=== PATIENT | female | born 1945 | race American Indian/Alaskan Native ===

== ENCOUNTER → 2016-05-22 | Day surgery (SDC) | payer OTHER, MEDICARE ==
[2016-05-15 09:09] VITALS: BMI 32.0
[~2016-05-22] VITALS: Ht 152.4 cm; Wt 74.1 kg
[~2016-05-22] MED LIST: ASPI81TA28 PO; MULT-506 PO
[2016-05-22 08:56] VITALS: Ht 152.4 cm; Wt 74.1 kg
[2016-05-22 11:45] VITALS: BP 145/63; PULSE 64; O2SAT 98
--- NOTE | 2016-05-22 14:09 | Procedure Note ---
Breath Hydrogen Test Interpretation Hydogren Breath Test Ordering Provider: Dr. Quinn Interpreting Provider: Dr. Skyler Donovan Time Hydrogen Level CO2 Level 0 2 3.6 20 1 4.5 40 3 4.3 60 3 4.2 120 10 4.4 140 12 4.2 160 19 4.0 180 21 4.5 200 29 4.2 220 14 4.3 Breath hydrogen increase maximum: 27 CO2 increase maximum: 0.9 Interpretation: Breath hydrogen increase of 27 consistent with a positive study. Recomendations: Referring provider to determine course of care for positive Hydrogen Breath Test.
== END | disposition home or self-care (01) ==
LOC: C.GI 08:29
PROVIDERS: ATTEND Internal Medicine Gastroenterology
DX: K31.9 Disease of stomach and duodenum, unspecified (principal); R10.13 Epigastric pain

== ENCOUNTER → 2017-11-12 | Outpatient (CLI) | payer OTHER, MEDICARE ==
[~2017-11-12] MED LIST changes: +PRED20TA PO
--- NOTE | 2017-11-13 05:31 | PAP/PSG TECHNICIAN REPORT ---
[facility] Fiber Optic Splicer Polysomnogram Report Study name: None Report date: 11/13/2017 Study date: 11/12/2017 Referring Physician: Greg Taylor M.D. Name: JOSE RON Interpreting Physician: Greg Taylor M.D. Date of : 1945 Fiber Optic Splicer: VIANEY Berrios. Sex: Female Age: 71 StudyType: PSG Weight: 168.9 lbs Height: 71 years, Height 5' 1" Neck Circum:16inches BMI: 31.91 Medications: ASA 81mg, Ibuprofen 200mg, Lorazepam 0.5mg, Multiple Vitamins, Ondansetron HCL 4mg Patient History Study started on room air with no ETCO2 monitoring in room #8. 71 yr old female here tonight for a possible split psg. She complains of loud snoring, witnessed apneic episodes, fragmented sleep and severe fatigue. Her ESS=13/24. Neck circ=16 inches. Note: She had to go to the ED at [facility] yesterday for a wasp sting. She is allergic. She had to be put on Prednisone and an antihistamine. Her rt hand is red and swollen. Parameters Monitored NPSG: E1-M2, E2-M1, Fp1-M2, Fp2-M1, F3-M2, F4-M2, F4-M1, C3-M2, C4-M2, C4-M1, O1-M2, O2-M2, O2-M1, T3-M2, T4-M1, P3-M2, P4-M1, CHIN1, CHIN2, HR, EKG, Legs, PFLOW, SNOR, FLOW, CFLOW, Tidal Volume, THOR, ABDO, SpO2, PLTH, CPRESS, ETCO2 Wave, ETCO2, pH Sleep Architecture Sleep Stages Time at Lights Off 10:11:23 PM STAGES Time (min.) TST (%) Time at Lights On 5:17:53 AM Wake 295.0 -- Total Recording Time (TRT) 426.50 min. N1 12.5 10 Total Sleep Period (TSP) 352.0 min. N2 74.0 56 Total Sleep Time (TST) 131.5min. N3 33.0 25 Awake Time 295.0 min. REM 12.0 9 Wake after Sleep Onset 268.0 min. Sleep Efficiency (SE) 31 % Sleep Onset Latency (LIBORIO) 27.0 min. Number of Stage 1 Shifts None Awakenings 18 Stage Changes 55 Number of REM periods 1 REM 12.0 9 REM Latency 77.5 min. NREM 119.5 91 Body Position Analysis Supine Right Left Side Prone Vertical Total Sleep Time (min.) 99.6 128.5 0.0 128.50 0.0 0.0 Total Sleep Time (%) 2% 98% 0% 98 0% N/A% Total Sleep Time REM (min.) 0.0 12.0 0.0 None 0.0 0.0 Total Sleep Time NREM (min.) 3.0 116.5 0.0 None 0.0 0.0 Intermittent Wake (min.) 96.6 121.3 77.1 None 0.0 0.0 Total Sleep Period (%) 21% None None None None None Arousals Myoclonus (PLM) * Events Count Index Events Count Index Spontaneous 13 6 Events Awake (PLMW) 260 52.9 Respiratory 3 2.3 Events Asleep w/ Arousal (PLMA) 15 6.8 PLM 15 7 Events Asleep w/o Arousal (PLMS) 103 47.0 Snoring 7 3 Total Asleep 118 53.8 Total 38 17 Total 378 53 Respiratory Analysis * CA OA MA CH H RERA Total Count 0 4 0 0 13 1 17 Index 0.0 1.8 0.0 0 5.9 0 8.2 Mean Duration 0.0 17.5 0.0 0.00 28.1 29.9 25.8 Longest Duration 0.0 22.5 0.0 0.00 0.0 29.9 53.5 Respiratory Event Summary Total Supine ~Supine Right Left Prone REM NREM Apneas Count 4 0 4 4 N/A N/A 0 4 Index 1.8 0 2 1.9 N/A N/A 0 2 Hypopneas (4% Desat) Count 13 0 13 13 N/A N/A 8 5 Index 5.9 0.0 6 6.1 N/A N/A 40.0 2.5 Apneas & All Hypopneas Count 17 0 17 17 N/A N/A 8 9 Index 7.8 0 8 8 N/A N/A 40.0 4.5 Respiratory Events (Floor Renovator+All Hyp+RERA) Count 17 0 18 18 N/A N/A 8 9 Index 8.2 0 8 8.4 N/A N/A 40.0 5.0 Respiratory Related Arousal Count 3 0 5 5 N/A N/A 0 5 Index 2.3 0 2 2 N/A N/A 0 3 Snoring Analysis Supine Right Left Prone REM NREM Total Snore duration 3.4 min Snores count 6 142 N/A N/A 18 130 148 Snore mean duration 1.4 Sec Snores index 120 66 N/A N/A 90.0 65.3 67.5 TST with snoring (%) 2.6% Desaturation Event Summary: Minimum %SpO2 Event Count Mean/Min/Max Duration(sec.) Desaturation Index % Time In Bed > 90 29 31.0 / 8.0 / 58.3 8.2 55.0 86 - 90 11 24.3 / 4.8 / 54.3 3.8 44.9 81 - 85 0 N/A 0.0 0.1 76 - 80 0 N/A 0.0 0.0 71 - 75 0 N/A 0.0 0.0 66 - 70 0 N/A 0.0 0.0 61 - 65 0 N/A 0.0 0.0 56 - 60 0 N/A 0.0 0.0 51 - 55 0 N/A 0.0 0.0 < 50 0 N/A 0.0 0.0 Total REM NREM Awake <50% 0.0 min. 0.0 min. 0.0 min. 0.0 min. 51 - 60% 0.0 min. 0.0 min. 0.0 min. 0.0 min. 61 - 70% 0.0 min. 0.0 min. 0.0 min. 0.0 min. 71 - 80% 0.2 min. 0.0 min. 0.0 min. 0.2 min. 81 - 90% 173.8 min. 4.3 min. 69.3 min. 100.3 min. 91 - 100% 212.5 min. 7.7 min. 49.7 min. 155.1 min. Average 91 91 90 91 Minimum SpO2 80 87 87 80 Desaturation Event Index 4.4 35.0 2.5 3.9 # Desat. Events below 89% 21 6 3 12 Time(%) with Saturation below 89% 6.7 0.2 3.2 3.3 Time(min.) with Saturation below 89% 25.8 0.7 12.5 12.6 Time (mins) REM (mins) NREM (mins) % of TST SpO2 Below 90% 12 7 N5 26.9 SpO2 Below 88% 4 0 0 0 Heart Rate Analysis Min (bpm) Max (bpm) Average (bpm) Awake 46 300 58 NREM 45 127 56 REM 53 68 58 Overall 45 127 56 Supplemental O2 Values Minimum O2 level: None Value Start Time End Time Fiber Optic Splicer Comments Mrs. Ron slept in the right, left and supine positions. Cardiac arrhythmia and PLM's noted, please see print outs. No bruxism noted. Snoring was noted and scored as a 2 on a scale of 1 through 5. (0=no snoring, 5=snoring loud enough to be heard through a closed door or down the dominguez way). She awoke to use the restroom 2 times during the night. She stated that she slept a little worse than usual and that her right hand was bothering her where she got stung by a wasp. The final report will be interpreted and signed by a sleep physician. The completed physician report will then be placed in the patient medical record. Therapy (cm H2O) 0 TIB (min.) 426.5 TST (min.) 131.5 Sleep Onset (min.) 27.0 REM Onset From Sleep (min.) 77.5 Sleep Efficiency % 31 Wakefulness (%) 69 Wakefulness (min.) 295.0 NREM 1 (%) 10 NREM 1 (min.) 12.5 NREM 2 (%) 56 NREM 2 (min.) 74.0 NREM 3 (%) 25 NREM 3 (min.) 33.0 REM (%) 9 REM (min.) 12.0 # Arousals 38 Arousal Index 17 # Snore 148 Snore Index 67.5 AHI 7.8 AHI Supine 0 AHI Non-Supine 8 NREM AHI 4.5 REM AHI 40.0 RDI 8.2 # Obstructive Apnea 4 # Central Apnea 0 # Mixed Apnea 0 # Hypopneas 13 RERAs 1 Total Respiratory Events 22 Time Below SpO2 89% (min.) 13.1 Mean NREM SpO2 (%) 90 Mean REM SpO2 (%) 91 Mean Sleep SpO2 (%) 90 Min NREM SpO2 (%) 87 Min REM SpO2 (%) 87 Position Supine (min.) 99.6 Position Non-supine (min.) 128.5 LM Index Sleep 53.8 LM Index NREM 58.7 LM Index REM 5.0 Mean Heart Rate (bpm) 56 Min Heart Rate (bpm) 45
--- NOTE | 2017-11-16 13:34 | POLYSOMNOGRAPH REPORT ---
CLINICAL DATA: A 71-year-old female with BMI of 39.9, referred by Dr. Cloud and myself for a sleep study. She has loud snoring, witnessed apneic episodes, fragmented sleep, and severe fatigue. Her [place] sleepiness score is 13/24. She was on prednisone for an allergic reaction due to a wasp sting treated at the Emergency Room the night before the sleep study. SLEEP ARCHITECTURE: Total sleep period was 352 minutes. Total sleep time was only 131.5 minutes divided between 119.5 minutes of non-REM sleep, and 12 minutes of REM sleep. Sleep onset latency was 27 minutes. REM latency was 77.5 minutes. Sleep efficiency was severely reduced at 31%. Wake after sleep onset was 268 minutes. Sleep consisted of stage N1 10%, stage N2 56%, stage N3 25%, and REM 9%. AROUSAL DATA: 38 arousals were recorded for an index of 17 per hour. PLM DATA: 118 limb movements during sleep were noted for an index of 53.8 per hour with arousal index of 6.8 per hour. RESPIRATORY DATA: Mild sleep apnea was documented. The AHI was 7.8. The RDI was 8.2. There were 4 obstructive apneic episodes. The longest apneic episode was 22.5 seconds. There were 13 hypopneic episodes with mean duration of 28.1 seconds. There was 1 RERA, 29.9 seconds in duration. OXIMETRY DATA: Transient hypoxemia was seen. Oxygen susan was 87% during REM. Mean saturation was 91%. Time below 88% was 4 minutes. EKG: Heart rates ranged from 45-127 beats per minute. Occasional PVCs were noted. ELECTRONIC SEMICONDUCTOR PROCESSOR'S COMMENTS: The patient slept in the right, left, and supine position. Snoring was mild, rated 2 on a scale of 1-5. The patient stated that she slept worse than usual because her right hand was painful where she got stung by a wasp. IMPRESSION: Mild sleep apnea/hypopnea in this very limited sleep study where only 131.5 minutes of sleep was achieved. This may not accurately reflect the degree of her sleep apnea. RECOMMENDATIONS: The patient may benefit from a repeat sleep study after she has healed from her recent insect sting. If she does not feel that she can sleep at the Sleep Lab, then a home sleep apnea test will be considered. STU
== END | disposition home or self-care (01) ==
LOC: C.NEUR 21:00
PROVIDERS: ATTEND Internal Medicine Pulmonary Disease
DX: G47.30 Sleep apnea, unspecified (principal)

== ENCOUNTER 2017-11-29 14:43 | Emergency (ER) | payer OTHER, MEDICARE ==
[~2017-11-29] VITALS: Ht 152.4 cm; Wt 80.0 kg
[~2017-11-29 14:43] MED LIST changes: -PRED20TA PO
[2017-11-29 14:46] VITALS: TEMP 36.6
[2017-11-29 15:03] VITALS: O2SAT 95; Ht 152.4 cm; Wt 80.0 kg
[2017-11-29 15:22] LABS: BASO % 0.6 %; BASO ABS # 0.05 K/uL (0-0.2); EOS % 1.6 %; EOS ABS # 0.14 K/uL (0-0.5); HEMATOCRIT 40.9 % (37-47); HEMOGLOBIN 13.9 g/dL (12.0-16.0); IG# 0.02 K/uL (0.00-0.02); LYMPH % 36.8 %; LYMPH ABS # 3.25 K/uL (1.2-3.4); MEAN CELL VOLUME 89.3 fL (80-100); MEAN CORPUSCULAR HEMOGLOBIN 30.3 pg (25-34); MEAN PLATELET VOLUME 10.2 fL (7.4-10.4); MONO % 4.9 %; MONO ABS # 0.43 K/uL (0.11-0.59); NEUT % 55.9 %; NEUT ABS # 4.95 K/uL (1.4-6.5); PLATELET COUNT 283 K/uL (130-400); RED CELL DISTRIBUTION WIDTH CV 14.5 % (11.5-14.5); RED CELL DISTRIBUTION WIDTH SD 47.1 fL (36.4-46.3); WHITE BLOOD COUNT 8.84 K/uL (4.8-10.8)
--- NOTE | 2017-11-29 15:27 | DIAGNOSTIC IMAGING REPORT ---
CHEST ONE VIEW PORTABLE CLINICAL HISTORY: EVALUATE WEAKNESS mental status change COMPARISON STUDY: 03/06/2016 FINDINGS: The bones soft tissues and hemidiaphragms are normal. The cardiomediastinal silhouette is normal. The lungs are clear. The pulmonary vasculature is normal. IMPRESSION: Negative chest. The above report was generated using voice recognition software. It may contain grammatical, syntax or spelling errors. Electronically signed by: Dilan Santamaria M.D. 11/29/2017 3:26 PM Dictated Date/Time: 11/29/2017 3:25 PM
[2017-11-29 15:32] LABS: PTT PATIENT 29.5 SECONDS (21.0-31.0)
[2017-11-29 16:06] LABS: ALBUMIN 3.8 gm/dl (3.4-5.0); ALKALINE PHOSPHATASE 77 U/L (45-117); ALT/SGPT 26 U/L (12-78); AST/SGOT 26 U/L (15-37); BLOOD UREA NITROGEN 12 mg/dl (7-18); CALCIUM 8.9 mg/dl (8.5-10.1); CARBON DIOXIDE 25 mmol/L (21-32); GLUCOSE 86 mg/dl (70-99); POTASSIUM 3.7 mmol/L (3.5-5.1); SODIUM 137 mmol/L (136-145); TOTAL PROTEIN 8.7 gm/dl (6.4-8.2)
--- NOTE | 2017-11-29 16:34 | DIAGNOSTIC IMAGING REPORT ---
HEAD WITHOUT CONTRAST (CT) CT DOSE: 537.48 mGy.cm HISTORY: Mental status change EVALUATE WEAKNESS TECHNIQUE: Multiaxial CT images of the head were performed without the use of intravenous contrast. A dose lowering technique was utilized adhering to the principles of ALARA. Comparison: 03/06/2016 Findings: The paranasal sinuses and mastoid air cells are clear. The calvarium and skull base are intact. The ventricles and sulci are within normal limits. There is no mass, hematoma, midline shift, or acute infarct. Impression: No acute intracranial abnormality. The above report was generated using voice recognition software. It may contain grammatical, syntax or spelling errors. Electronically signed by: Dilan Santamaria M.D. 11/29/2017 4:33 PM Dictated Date/Time: 11/29/2017 4:32 PM
[2017-11-29 17:31] VITALS: BP 148/99; PULSE 65; O2SAT 97
--- NOTE | 2017-11-29 20:39 | EMERGENCY ROOM VISIT NOTE ---
History Report prepared by [place]: Paige Lott Under the Supervision of: Dr. Raul Lawton D.O. First contact with patient: 14:49 Chief Complaint: HYPERTENSION Stated Complaint: ELEVATED BLOOD PRESSURE 181/100, VISUAL CLOUDY History of Present Illness The patient is a 72 year old female who presents to the Emergency Room with complaints of hypertension beginning at 0500 this morning. She notes that since she woke up this morning at 0500, she felt heart palpitations which she describes as fluttering but denies any associated pain. The patient states that her heart has been beating fast all day. She has associated cloudy vision and has also developed a headache and some nausea. Pt denies fevers, neck pain, chest pain, shortness of breath, vomiting, diarrhea, pain with urination, melena , weakness and numbness in her extremities. She is not taking any blood thinners. Source of History: patient Onset: 0500 this morning Position: chest Quality: other (fluttering and heart racing) Timing: constant Associated Symptoms: + headache, + nausea, No fevers, No neck pain, No chest pain, No vomiting, No melena, No diarrhea, No urinary symptoms (pain with urination), No weakness, No numbness Note: Positive cloud vision. Review of Systems See HPI for pertinent positives & negatives. A total of 10 systems reviewed and were otherwise negative. Past Medical & Surgical Medical Problems: (1) Asthma (2) Benign hypertension (3) Cardiac catheterization (4) COPD (5) Hyperlipidemia (6) Myocardial infarction (7) Slow rate of speech (8) Takotsubo syndrome (9) Vertigo Family History FH: heart disease Social History Smoking Status: Former Smoker Alcohol Use: none Drug Use: none Marital Status: Housing Status: lives with significant other Occupation Status: retired Current/Historical Medications Scheduled Aspirin (Aspirin Ec), 81 MG PO DAILY Multivitamin (Multivitamin), 1 TAB PO DAILY Allergies Coded Allergies: Morphine (Verified Allergy, Unknown, RASH, 11/29/17) Penicillins (Verified Allergy, Unknown, SWELLING, 11/29/17) Nitroglycerin (Verified Adverse Reaction, Unknown, DIZZY, 11/29/17) Statins (Verified Adverse Reaction, Unknown, GI SYMPTOMS, 11/29/17) Physical Exam Vital Signs Date Time Temp Pulse Resp B/P (MAP) Pulse Ox O2 Delivery O2 Flow Rate FiO2 11/29/17 17:31 65 15 148/99 97 Room Air 11/29/17 16:33 158/72 11/29/17 16:13 72 16 11/29/17 16:01 147/94 11/29/17 15:50 165/98 11/29/17 15:49 164/102 11/29/17 15:48 167/91 11/29/17 15:43 69 18 96 11/29/17 15:38 74 16 167/91 94 Room Air 82 164/102 165/98 11/29/17 15:13 76 11/29/17 15:13 69 17 96 11/29/17 15:03 95 Room Air 11/29/17 15:03 95 Room Air 11/29/17 14:46 36.6 91 17 176/96 97 Room Air Physical Exam GENERAL: Sitting up in bed, alert, well appearing, well nourished, no distress, non-toxic EYE EXAM: normal conjunctiva. PERRL and EOM's grossly intact. OROPHARYNX: no exudate, no erythema, lips, buccal mucosa, and tongue normal and mucous membranes are moist NECK: supple, no nuchal rigidity, no adenopathy, non-tender LUNGS: Clear to auscultation. Normal chest wall mechanics HEART: no murmurs, S1 normal and S2 normal ABDOMEN: abdomen soft, non-tender, normo-active bowel sounds, no masses, no rebound or guarding. BACK: Back is symmetrical on inspection and there is no deformity, no midline tenderness, no CVA tenderness. SKIN: no rashes and no bruising UPPER EXTREMITIES: upper extremities are grossly normal. LOWER EXTREMITIES: No pitting edema. NEURO EXAM: Normal sensorium, cranial nerves II-XII intact, normal speech, no weakness of arms, no weakness of legs. No drift. Finger to nose intact. Gross sensation intact. Medical Decision & Procedures ER Provider Diagnostic Interpretation: Radiology results as stated below per my review and the radiologist's interpretation: CHEST ONE VIEW PORTABLE CLINICAL HISTORY: EVALUATE WEAKNESS mental status change COMPARISON STUDY: 03/06/2016 FINDINGS: The bones soft tissues and hemidiaphragms are normal. The cardiomediastinal silhouette is normal. The lungs are clear. The pulmonary vasculature is normal. IMPRESSION: Negative chest. The above report was generated using voice recognition software. It may contain grammatical, syntax or spelling errors. Electronically signed by: Dilan Santamaria M.D. 11/29/2017 3:26 PM HEAD WITHOUT CONTRAST (CT) CT DOSE: 537.48 mGy.cm HISTORY: Mental status change EVALUATE WEAKNESS TECHNIQUE: Multiaxial CT images of the head were performed without the use of intravenous contrast. A dose lowering technique was utilized adhering to the principles of ALARA. Comparison: 03/06/2016 Findings: The paranasal sinuses and mastoid air cells are clear. The calvarium and skull base are intact. The ventricles and sulci are within normal limits. There is no mass, hematoma, midline shift, or acute infarct. Impression: No acute intracranial abnormality. The above report was generated using voice recognition software. It may contain grammatical, syntax or spelling errors. Electronically signed by: Dilan Santamaria M.D. 11/29/2017 4:33 PM Laboratory Results 11/29/17 15:15 Red Blood Count 4.58, Mean Corpuscular Volume 89.3, Mean Corpuscular Hemoglobin 30.3, Mean Corpuscular Hemoglobin Concent 34.0, Mean Platelet Volume 10.2, Neutrophils (%) (Auto) 55.9, Lymphocytes (%) (Auto) 36.8, Monocytes (%) (Auto) 4.9, Eosinophils (%) (Auto) 1.6, Basophils (%) (Auto) 0.6, Neutrophils # (Auto) 4.95, Lymphocytes # (Auto) 3.25, Monocytes # (Auto) 0.43, Eosinophils # (Auto) 0.14, Basophils # (Auto) 0.05 11/29/17 15:15 Test 11/29/17 15:14 11/29/17 15:15 Bedside Glucose 82 mg/dl (70-90) White Blood Count 8.84 K/uL (4.8-10.8) Red Blood Count 4.58 M/uL (4.2-5.4) Hemoglobin 13.9 g/dL (12.0-16.0) Hematocrit 40.9 % (37-47) Mean Corpuscular Volume 89.3 fL (80-100) Mean Corpuscular Hemoglobin 30.3 pg (25-34) Mean Corpuscular Hemoglobin Concent 34.0 g/dl (32-36) Platelet Count 283 K/uL (130-400) Mean Platelet Volume 10.2 fL (7.4-10.4) Neutrophils (%) (Auto) 55.9 % Lymphocytes (%) (Auto) 36.8 % Monocytes (%) (Auto) 4.9 % Eosinophils (%) (Auto) 1.6 % Basophils (%) (Auto) 0.6 % Neutrophils # (Auto) 4.95 K/uL (1.4-6.5) Lymphocytes # (Auto) 3.25 K/uL (1.2-3.4) Monocytes # (Auto) 0.43 K/uL (0.11-0.59) Eosinophils # (Auto) 0.14 K/uL (0-0.5) Basophils # (Auto) 0.05 K/uL (0-0.2) RDW Standard Deviation 47.1 fL (36.4-46.3) RDW Coefficient of Variation 14.5 % (11.5-14.5) Immature Granulocyte % (Auto) 0.2 % Immature Granulocyte # (Auto) 0.02 K/uL (0.00-0.02) Prothrombin Time 10.0 SECONDS (9.0-12.0) Prothromb Time International Ratio 1.0 (0.9-1.1) Activated Partial Thromboplast Time 29.5 SECONDS (21.0-31.0) Partial Thromboplastin Ratio 1.1 Anion Gap 8.0 mmol/L (3-11) Est Creatinine Clear Calc Drug Dose 66.0 ml/min Estimated GFR () 98.9 Estimated GFR (Non- 85.4 BUN/Creatinine Ratio 16.7 (10-20) Calcium Level 8.9 mg/dl (8.5-10.1) Total Bilirubin 0.5 mg/dl (0.2-1) Direct Bilirubin 0.1 mg/dl (0-0.2) Aspartate Amino Transf (AST/SGOT) 26 U/L (15-37) Alanine Aminotransferase (ALT/SGPT) 26 U/L (12-78) Alkaline Phosphatase 77 U/L (45-117) Troponin I < 0.015 ng/ml (0-0.045) Total Protein 8.7 gm/dl (6.4-8.2) Albumin 3.8 gm/dl (3.4-5.0) Thyroid Stimulating Hormone (TSH) 3.690 uIu/ml (0.300-4.500) Laboratory results per my review. ECG Per My Interpretation Indication: palpitations Rate (beats per minute): 74 Rhythm: sinus rhythm Findings: T-wave inversion (in A3), left axis deviation, other (no PVCs) Comparison ECG Date: 03/06/2016 Change: no significant change ED Course ED COURSE: Vital signs were reviewed and showed hypertension The patients medical record was reviewed The above diagnostic studies were performed and reviewed. ED treatments and interventions as stated above. 1456: The patient was evaluated in room C7. A complete history and physical examination was performed. 1657: I checked on the patient at this time. She is feeling better 1735: Upon reevaluation, the patient is feeling better. I discussed my findings with the patient and she understands and agrees with the treatment plan. Based on the patients age, coexisting illnesses, exam and lab findings the decision to treat as an outpatient was made. The patient remained stable while under my care. The patient appeared well at the time of discharge. Medical Decision Differential diagnosis: Etiologies such as premature contractions, electrolyte abnormality, cardiac dysrhythmia, thyroid dysfunction, pulmonary embolism, infection, gastrointestinal, as well as others were entertained. Patient is a 72-year-old female who presents the ER for feeling as though her heart is racing. This is been present since 5 AM this morning. Still present currently. She denies any chest pain or shortness of breath. No arm or jaw pain. She admits to mild nausea. She did check her blood pressure was elevated and consequently she came in. History of previous AR but does not feel same. CBC along with BMP, LFTs, bilirubin and troponin was negative. TSH was unremarkable. INR was normal. CT head and chest x-ray was unremarkable. EKG was unremarkable and unchanged from previous. Patient was given fluids and discharged to follow-up with PCP as an outpatient. Discussed with Pt concerning signs and symptoms to watch out for. Pt was instructed to follow up with their PCP and discussed with the patient their option to return to the ED at anytime for persistent or worsening symptoms. The appropriate anticipatory guidance and out-patient management, including indications for return to the emergency department, were explained at length to the patient and understood. Medication Reconcilliation Current Medication List: was personally reviewed by me Blood Pressure Screening Patient's blood pressure: Elevated blood pressure Blood pressure disposition: Referred to PCP Impression Primary Impression: HTN (hypertension) Additional Impression: Palpitations Scribe Attestation The scribe's documentation has been prepared under my direction and personally reviewed by me in its entirety. I confirm that the note above accurately reflects all work, treatment, procedures, and medical decision making performed by me. Departure Information Dispostion Home / Self-Care Referrals Zach Cloud MD (PCP) Forms HOME CARE DOCUMENTATION FORM, IMPORTANT VISIT INFORMATION, WORK / SCHOOL INSTRUCTIONS Patient Instructions My [facility] Additional Instructions Please follow up with your primary care doctor with in the next 24 hours. Any worsening of your symptoms, please return to the ED immediately. This includes any fevers greater than 100.4, worsening pain, chest pain, shortness breath, persistent nausea, vomiting, unable to eat or drink, or any other concerning signs or symptoms from your standpoint. Please make sure you follow-up with your PCP in the next 24 hours as stated above. Problem Qualifiers Primary Impression: HTN (hypertension) Hypertension type: unspecified Qualified Codes: I10 - Essential (primary) hypertension
== END 2017-11-29 18:00 | disposition home or self-care (01) ==
LOC: C.EDB 14:46 → C.EDC 18:00
DX: I10 Essential (primary) hypertension (principal); R00.2 Palpitations; J45.909 Unspecified asthma, uncomplicated; J44.9 Chronic obstructive pulmonary disease, unspecified; E78.5 Hyperlipidemia, unspecified; I25.2 Old myocardial infarction; Z87.891 Personal history of nicotine dependence; Z79.82 Long term (current) use of aspirin; Z88.5 Allergy status to narcotic agent; Z88.0 Allergy status to penicillin; Z88.8 Allergy status to other drugs, medicaments and biological substances

== ENCOUNTER 2017-12-17 20:55 | Inpatient (IN) | payer OTHER, MEDICARE ==
[~2017-12-17] VITALS: Ht 165.1 cm; Wt 77.7 kg
[2017-12-17] MEDS ORDERED: LABETALOL HCL IV 5 MG/ML 20ML IV PRN (21:30)
[2017-12-17 21:34] LABS: HEMATOCRIT 40.5 % (37-47); HEMOGLOBIN 13.4 g/dL (12.0-16.0); MEAN CELL VOLUME 90.8 fL (80-100); MEAN CORPUSCULAR HGB CONC 33.1 g/dl (32-36); MEAN PLATELET VOLUME 10.7 fL (7.4-10.4); PLATELET COUNT 319 K/uL (130-400); RED CELL DISTRIBUTION WIDTH CV 14.2 % (11.5-14.5); RED CELL DISTRIBUTION WIDTH SD 47.4 fL (36.4-46.3); WHITE BLOOD COUNT 10.43 K/uL (4.8-10.8)
[2017-12-17 21:39] LABS: ISTAT CREATININE 0.6 mg/dl (0.6-1.3); ISTAT IONIZED CALCIUM 1.09 mmol/l (1.12-1.32); ISTAT POTASSIUM 3.3 mEq/L (3.3-5.0)
--- NOTE | 2017-12-17 21:42 | DIAGNOSTIC IMAGING REPORT ---
CT HEAD WITHOUT CONTRAST (CT) CLINICAL HISTORY: Stroke like symptoms COMPARISON STUDY: 11/29/2017 TECHNIQUE: Axial CT of the brain is performed from the vertex to the skull base. IV contrast was not administered for this examination. A dose lowering technique was utilized adhering to the principles of ALARA. CT DOSE: 614.27 mGy.cm FINDINGS: No intra or extra-axial mass lesions are visualized. There is no CT evidence of acute cortical infarction. There is no evidence of midline shift. There is no acute hemorrhage. No calvarial fractures are visualized. There are patchy white matter hypodensities likely on a small vessel basis. There is stable mild ventricular dilatation which is felt to be secondary to volume loss. There is no evidence of acute sinusitis IMPRESSION: No acute intracranial findings Electronically signed by: Dariusz Perez M.D. 12/17/2017 9:40 PM Dictated Date/Time: 12/17/2017 9:39 PM
[2017-12-17 21:46] LABS: PTT PATIENT 29.3 SECONDS (21.0-31.0)
--- NOTE | 2017-12-17 21:52 | EMERGENCY ROOM VISIT NOTE ---
History Report prepared by Darrell: Dipika Garcia Under the Supervision of: Dr. Matthias Malik M.D. First contact with patient: 21:20 Chief Complaint: HYPERTENSION Stated Complaint: HIGH BLOOD PRESSURE History of Present Illness The patient is a 72 year old female with a past medical history of COPD, asthma, and Takotsubo who presents to the ED with a cc of constant slurred speech beginning 1 hour ago. She notes her symptoms began gradually, as a feeling of elevated blood pressure. She notes this episode felt different from her previous Takotsubo symptoms. The patient reports she is also unable to open her R eye very well. Source of History: patient Onset: 1 hour ago Position: tongue Quality: other (slurred speech) Timing: constant Note: Associated symptom: elevated blood pressure, unable to open R eye fully Review of Systems See HPI for pertinent positives and negatives. A total of ten systems were reviewed and were otherwise negative. Past Medical & Surgical Medical Problems: (1) Asthma (2) Benign hypertension (3) Cardiac catheterization (4) COPD (5) CVA (cerebral vascular accident) (6) Hyperlipidemia (7) Myocardial infarction (8) Slow rate of speech (9) Takotsubo syndrome (10) Vertigo Family History FH: heart disease Social History Smoking Status: Never Smoker Alcohol Use: none Drug Use: none Marital Status: Housing Status: lives with significant other Occupation Status: retired Current/Historical Medications Scheduled Aspirin (Aspirin Ec), 81 MG PO DAILY Multivitamin (Multivitamin), 1 TAB PO DAILY Scheduled PRN Ibuprofen (Advil), 200 MG PO Q6H PRN for Pain Lorazepam (Ativan), 0.5 MG PO TID PRN for Anxiety Ondansetron Hcl (Zofran), 4 MG PO Q8 PRN for Nausea Allergies Coded Allergies: Morphine (Verified Allergy, Unknown, RASH, 11/29/17) Penicillins (Verified Allergy, Unknown, SWELLING, 11/29/17) Nitroglycerin (Verified Adverse Reaction, Unknown, DIZZY, 11/29/17) Statins (Verified Adverse Reaction, Unknown, GI SYMPTOMS, 11/29/17) Physical Exam Vital Signs Date Time Temp Pulse Resp B/P (MAP) Pulse Ox O2 Delivery O2 Flow Rate FiO2 12/18/17 02:13 185/114 12/18/17 01:01 72 14 184/112 96 Room Air 12/17/17 23:22 215/101 12/17/17 23:16 69 16 98 Room Air 12/17/17 22:30 84 18 207/96 96 Room Air 12/17/17 22:09 82 20 214/106 98 Room Air 12/17/17 21:51 70 20 199/90 98 Room Air 12/17/17 21:27 98 Room Air 12/17/17 21:27 97 Room Air 12/17/17 21:16 72 12/17/17 21:15 Room Air 12/17/17 21:13 80 18 211/97 99 Room Air 12/17/17 20:57 36.8 80 20 210/111 97 Room Air Physical Exam GENERAL: Awake, alert, well-appearing, NAD HENT: Normocephalic, atraumatic. EYES: Normal conjunctiva. Sclera non-icteric. PERRL. No anisocoria. NECK: Supple. No nuchal rigidity. FROM. RESPIRATORY: CTAB, no rhonchi, wheezing, crackles CARDIAC: RRR, no MRG ABDOMEN: Soft, NTND, BS+ MSK: No chest wall TTP, no LE edema NEURO: CN 2-12 intact with the exception of inability to open R eye, questionable dysarthria. 5/5 upper and lower extremity strength, no dysmetria, no drift, good finger to nose, no sensory deficits. Finger count grossly normal. SKIN: No rash or jaundice noted. Medical Decision & Procedures ER Provider Diagnostic Interpretation: Radiology results as stated below per my review and radiologist interpretation: CT HEAD WITHOUT CONTRAST (CT) CLINICAL HISTORY: Stroke like symptoms COMPARISON STUDY: 11/29/2017 TECHNIQUE: Axial CT of the brain is performed from the vertex to the skull base. IV contrast was not administered for this examination. A dose lowering technique was utilized adhering to the principles of ALARA. CT DOSE: 614.27 mGy.cm FINDINGS: No intra or extra-axial mass lesions are visualized. There is no CT evidence of acute cortical infarction. There is no evidence of midline shift. There is no acute hemorrhage. No calvarial fractures are visualized. There are patchy white matter hypodensities likely on a small vessel basis. There is stable mild ventricular dilatation which is felt to be secondary to volume loss. There is no evidence of acute sinusitis IMPRESSION: No acute intracranial findings Electronically signed by: Dariusz Perez M.D. 12/17/2017 9:40 PM Dictated Date/Time: 12/17/2017 9:39 PM Laboratory Results 12/17/17 21:20 12/17/17 21:20 Test 12/17/17 21:20 12/17/17 21:30 12/17/17 21:43 12/17/17 22:58 Red Blood Count 4.46 M/uL (4.2-5.4) Mean Corpuscular Volume 90.8 fL (80-100) Mean Corpuscular Hemoglobin 30.0 pg (25-34) Mean Corpuscular Hemoglobin Concent 33.1 g/dl (32-36) RDW Standard Deviation 47.4 fL (36.4-46.3) RDW Coefficient of Variation 14.2 % (11.5-14.5) Mean Platelet Volume 10.7 fL (7.4-10.4) Prothrombin Time 10.0 SECONDS (9.0-12.0) Prothromb Time International Ratio 1.0 (0.9-1.1) Activated Partial Thromboplast Time 29.3 SECONDS (21.0-31.0) Partial Thromboplastin Ratio 1.1 Estimated GFR () 100.4 Estimated GFR (Non- 86.6 BUN/Creatinine Ratio 14.9 (10-20) Calcium Level 9.2 mg/dl (8.5-10.1) Total Bilirubin 0.3 mg/dl (0.2-1) Aspartate Amino Transf (AST/SGOT) 23 U/L (15-37) Alanine Aminotransferase (ALT/SGPT) 29 U/L (12-78) Alkaline Phosphatase 85 U/L (45-117) Total Protein 8.9 gm/dl (6.4-8.2) Albumin 4.0 gm/dl (3.4-5.0) Globulin 4.9 gm/dl (2.5-4.0) Albumin/Globulin Ratio 0.8 (0.9-2) Bedside Hemoglobin 14.3 g/dl (12.0-16.0) Bedside Hematocrit 42 % (37-47) Bedside Sodium 143 mEq/L (135-144) Bedside Potassium 3.3 mEq/L (3.3-5.0) Bedside Chloride 102 mEq/L (101-112) Bedside Total CO2 29 mEq/l (24-31) Anion Gap 16.0 mmol/L (16-25) Bedside Blood Urea Nitrogen 10 mg/dl (7-18) Bedside Creatinine 0.6 mg/dl (0.6-1.3) Bedside Glucose (other) 96 mg/dl (70-99) Bedside Ionized Calcium (Fela) 1.09 mmol/l (1.12-1.32) Bedside Glucose 89 mg/dl (70-90) Troponin I < 0.015 ng/ml (0-0.045) Laboratory results reviewed by me Medications Administered Medications (Trade) Dose Ordered Sig/Aura Route Start Time Stop Time Status Last Admin Dose Admin Aspirin (Aspirin Chew) 324 mg NOW STAT PO 12/17/17 22:47 12/17/17 22:49 DC 12/17/17 23:21 324 MG Ondansetron HCl (Zofran Inj) 4 mg Q6H PRN IV 12/18/17 02:15 01/17/18 02:14 12/18/17 03:26 4 MG ECG Per My Interpretation Rate (beats per minute): 76 Rhythm: normal sinus Findings: PVC (single PVC noted), T-wave inversion (in 3, AVF), left axis deviation, other (normal intervals) Comparison ECG Date: 11/29/17 Change: When compared to 11/29/17: T-wave inversions in AVF are new. ED Course 2123: The patient was evaluated in room C1. A complete history and physical exam was performed. 2129: Discussed the patient's case with Dr. Loco, neurologist. He will evaluate the patient. 2247: Reviewed the case with Dr. Loco, neurologist, who recommends MRI and Aspirin. 4: Discussed the patient's case with Dr. Jackson, [facility] hospitalist. The patient will be evaluated for further treatment and disposition. Medical Decision Nursing notes reviewed. Ancillary studies and prior records reviewed. The patient is a 72 year old female with a past medical history of COPD, asthma, and Takotsubo who presents to the ED with a cc of constant slurred speech beginning 1 hour ago. Differential diagnosis: Etiologies such as migraine headache, meningitis, sinusitis, CO exposure, ICH, SAH, infection, tumor, headache, sinus thrombosis, arterial dissection, as well as others were entertained. Patient was seen and evaluated the bedside. There was concern that the patient has some dysarthria and some associated difficulty with opening her right eye. The dysarthria is not very apparent that the patient is not raising her right eye. There is a concern for possible stroke service code stroke was called as the patient had symptoms approximate 1 hour. Also of note the patient has enjoyed some recent stress as her recently within the last week. The patient does not have any other focal neuro deficits. Patient denies any trauma. The patient was ordered IV labetalol event that this is related to hypertensive emergency and associated symptoms. Patient did blood work completed, EKG, CT brain I did speak with the tele- stroke neurologist who did evaluate the patient. Patient was seen and evaluated by the stroke specialist no TPA to be given at this time. The patient has had resolution of her symptoms her blood pressure is improved. Patient's other blood work is fairly unremarkable. I did order an MRI and a full dose aspirin. I did speak with the on-call hospitalist who agreed to further evaluate and treat the patient. Medication Reconcilliation Current Medication List: was personally reviewed by me Blood Pressure Screening Patient's blood pressure: Elevated blood pressure Blood pressure disposition: Referred to PCP (referred to hospitalist) Consults Time Called: 2125 Consulting Physician: marlen Belcher Returned Call: [phone]: Discussed the patient's case with marlen Belcher. He will evaluate the patient. 2247: Reviewed the case with Dr. Loco neurologist, who recommends MRI and Aspirin. Additional Consults: Time Called: 2299 Consulted Physician: [facility] Returned Call: [phone] Additional Comments: 2314: Discussed the patient's case with Ray [facility]. The patient will be evaluated for further treatment and disposition. Impression Primary Impression: Hypertensive emergency Additional Impression: Hypokalemia Critical Care I have personally spent greater than 45 minutes of critical care time in the direct management of this patient. This includes bedside care, interpretation of diagnostic studies, and testing, discussion with consultants, patient, and family members, and other required patient management activities. This 45 minutes is in excess of all separately billable procedures. Scribe Attestation The scribe's documentation has been prepared under my direction and personally reviewed by me in its entirety. I confirm that the note above accurately reflects all work, treatment, procedures, and medical decision making performed by me. Departure Information Dispostion Being Evaluated By Hospitalist Referrals Zach Cloud MD (PCP) Patient Instructions My [facility] Stroke History Time Last Known Well 2030 Stroke t-PA Criteria Reviewed Does NOT meet criteria for t-PA Reason t-PA Not Given Treatment not indicated Strict Exclusion Criteria Complete resolution of symptoms (NI Problem Qualifiers
[2017-12-17 21:59] LABS: ALKALINE PHOSPHATASE 85 U/L (45-117); ALT/SGPT 29 U/L (12-78); AST/SGOT 23 U/L (15-37); BLOOD UREA NITROGEN 10 mg/dl (7-18); CALCIUM 9.2 mg/dl (8.5-10.1); CARBON DIOXIDE 28 mmol/L (21-32); CREATININE 0.67 mg/dl (0.60-1.20); GLUCOSE 94 mg/dl (70-99); POTASSIUM 3.2 mmol/L (3.5-5.1); SODIUM 139 mmol/L (136-145); TOTAL PROTEIN 8.9 gm/dl (6.4-8.2)
[2017-12-17] MEDS ORDERED: ASPIRIN 324 MG CHEW PO STA (22:47)
[2017-12-17] MEDS ORDERED: LORA-741 PO ×2 (23:52)
[2017-12-17] MEDS ORDERED: ONDA4TAB46 PO (23:55)
[2017-12-17] MEDS ORDERED: IBUP-1050 PO ×2 (23:56)
[2017-12-18] MEDS ORDERED: GADAVIST IV PRN (00:30)
[2017-12-18] MEDS ORDERED: ALUMINUM/MAGNESIUM/SIMETH (MAALOX MAX) 30 ML UDC PO PRN (02:15)
[2017-12-18] MEDS ORDERED: ONDANSETRON 4 MG TAB PO PRN (02:15)
[2017-12-18] MEDS ORDERED: PHARMACIST DISCHARGE MED REC CONSULT PRN (02:15)
[2017-12-18] MEDS ORDERED: METOPROLOL TARTRATE 1 MG/ML VIAL IV. PRN (02:15)
[2017-12-18] MEDS ORDERED: LORAZEPAM 0.5 MG TAB PO PRN (02:15)
[2017-12-18] MEDS ORDERED: ACETAMINOPHEN 325 MG TAB PO PRN (02:15)
[2017-12-18] MEDS ORDERED: ONDANSETRON INJ 2 MG/ML 2 ML VIAL IV PRN (02:15)
[2017-12-18] MEDS ORDERED: POLYETHYLENE (MIRALAX) 17 GM PACK PO PRN (02:15)
[2017-12-18] MEDS ORDERED: LABETALOL HCL IV 5 MG/ML 20ML IV PRN (02:30)
[2017-12-18 03:52] VITALS: O2SAT 94; Ht 165.1 cm; Wt 77.7 kg
[2017-12-18] MEDS ORDERED: PROMETHAZINE HCL INJ 12.5 MG in SODIUM CHLORIDE 0.9% 50ML 50 ML IV PRN (04:15)
[2017-12-18 04:16] VITALS: BP 186/103; PULSE 78; TEMP 37; O2SAT 94
[2017-12-18 05:00] VITALS: BP 189/81; PULSE 65
[2017-12-18 07:20] VITALS: BP 128/63; PULSE 66; TEMP 36.8; O2SAT 97
--- NOTE | 2017-12-18 07:24 | DIAGNOSTIC IMAGING REPORT ---
CAROTID ARTERY ULTRASOUND CLINICAL HISTORY: Stroke. COMPARISON STUDY: Carotid ultrasound December 18, 2010 and MRA of the neck March 07, 2016. TECHNIQUE: Real-time, grayscale, and color Doppler sonography of the carotid and vertebral arteries was performed. Images were viewed in the transverse and longitudinal planes. FINDINGS: There is mild to moderate atherosclerotic plaque. Velocity measurements are listed below. COMMON CAROTID PEAK SYSTOLIC VELOCITY (CM/S): RIGHT 58 LEFT 54 ICA PEAK SYSTOLIC VELOCITY (CM/S): RIGHT 65 LEFT 59 Systolic ratios between the internal to common carotid arteries were normal. Antegrade flow is seen in the vertebral arteries. The external carotid arteries are patent. Blood pressure was not obtained in this patient due to limb restriction. IMPRESSION: No evidence for a hemodynamically significant stenosis. Electronically signed by: Joshua Anna M.D. 12/18/2017 7:22 AM Dictated Date/Time: 12/18/2017 7:21 AM
[2017-12-18] MEDS: ASPIRIN 81 MG ECTAB PO SCH (07:43)
[2017-12-18] MEDS: MULTIVITAMIN TAB PO SCH (07:44)
[2017-12-18] MEDS: LISINOPRIL 10 MG TAB PO SCH (07:44)
--- NOTE | 2017-12-18 07:57 | HISTORY & PHYSICAL EXAMINATION ---
DATE OF ADMISSION: 12/18/2017 CHIEF COMPLAINT: Slurred speech. HISTORY OF PRESENT ILLNESS: This is a 72-year-old female with past medical history significant for borderline hypertension not on medications, hyperlipidemia, history of Takotsubo cardiomyopathy in 2010, which is resolved in last echo, obesity, lactose intolerance, presents with slurred speech and not feeling well. The patient says her about 10 days ago. She lives with her son. Today in the evening while walking, she felt slow and she thought her brain was processing very slow and has some difficulty speaking, slurred speech, and at that time she could not open her right eye and some right-sided headache and she was brought into the ER. In the ER, her blood pressure is high and stroke alert was called, but her symptoms were improving and [facility] neurologist thought that she was not a candidate for TPA. CT of the head was okay. The patient had MRI of the head, but the results are still pending. Currently, she has some pressured speech, but able to speak okay. Alert and oriented, complains of headache. Denies any blurred vision. No earache, no runny nose, no sore throat. Denies any difficulty swallowing. No night sweats. Appetite is otherwise okay. No recent weight gain, weight loss. No sweating, no chest pain, no shortness of breath, was nauseous earlier, but okay now. No vomiting, no abdominal pain. Normal bowel and bladder movements. No blood in the stools, no blood in the urine, no rash, otherwise she was doing okay until this episode happened. ALLERGIES: The patient says she has allergies to MORPHINE, NITROGLYCERIN, and PENICILLINS. PAST MEDICAL HISTORY: As mentioned above. PAST SURGICAL HISTORY: Cataract surgery, EGD. MEDICATIONS: The patient is on Motrin 200 mg p.o. q. 6 hours p.r.n., aspirin 81 mg p.o. daily, Zofran 4 mg p.o. q. 8 hours p.r.n., multivitamin tablet daily, Ativan 0.5 mg p.o. q.i.d. p.r.n. FAMILY HISTORY: Significant for father had heart disorder. SOCIAL HISTORY: , presently her about 10 days ago. Lives with her son. No smoking history. No alcohol. No drugs. REVIEW OF SYMPTOMS: As per HPI. Rest of review of symptoms negative. PHYSICAL EXAMINATION: GENERAL: The patient is of moderate built. The patient is obese, not in distress. VITAL SIGNS: Temperature 36.8, pulse 72, respiratory rate 14, blood pressure currently 185/114, oxygen 96% on room air. HEENT: No pallor, no icterus. Pupils equal, round, and reactive to light. NECK: No JVD, no neck masses, no carotid bruits. CARDIOVASCULAR: S1, S2 heard, regular rate and rhythm, no murmur, no gallop. RESPIRATORY SYSTEM: Clear to auscultation bilaterally. No wheezing, no crackles. ABDOMEN: Soft, bowel sounds present. Nontender. No distention. CENTRAL NERVOUS SYSTEM: Cranial nerves II-XII grossly intact. Power 5/5 in all extremities. Sensation is intact. No pronator drift. Position sense intact. Coordination of movements normal. EXTREMITIES: No edema, no erythema. LABORATORY DATA: WBC 10.4, hemoglobin 13.4, hematocrit 40.5, platelets 319. Sodium 139, potassium 3.2, chloride 104, bicarbonate 28, BUN 10, creatinine 0.6, serum glucose 94, calcium 9.2, total bilirubin 0.3, AST 33, ALT 29, alkaline phosphatase 85. PT 10.10, INR 1, APTT 29.3. CT of the head, no acute intracranial findings seen. EKG: Sinus rhythm with PVCs at the rate of 76, no acute ST changes seen. ASSESSMENT AND PLAN: This is a 72-year-old female who presents with stroke-like symptoms. 1. Stroke-like symptoms with slurred speech, but symptoms improving. Stroke alert was called, but [facility] neurologist thought she is not a candidate for TPA. CT head fine. MRI is done, its results are pending. We will follow carotid Dopplers, echo and PT, OT and speech evaluation. Monitor on the tele floor.Neurology consult 2. Uncontrolled hypertension, urgency/ emergency . The patient has blood pressures in borderline usually. Recently about 10 days ago, her . Her symptoms could be secondary to uncontrolled hypertension. The patient received labetalol in the ER. We will place her on lisinopril and labetalol p.r.n. Patient has appointment with cardiology today and likes see them while she is hospital. Placed cardiology consult 3. Anxiety. Continue Ativan p.r.n. 4. History of Takotsubo cardiomyopathy, it was resolved. We will follow the echocardiogram. 5. History of hyperlipidemia, not on medication. Follow the lipid profile. 6. Deep venous thrombosis prophylaxis, SCDs for now. 7. Disposition: Admit to tele floor. Expect to discharge to home and follow with family doctor. Level 1 full code. MTDD
--- NOTE | 2017-12-18 08:08 | DIAGNOSTIC IMAGING REPORT ---
MRI OF THE BRAIN WITHOUT AND WITH IV CONTRAST CLINICAL HISTORY: Stroke-like symptoms. Hypertension. COMPARISON STUDY: MRI of the brain March 07, [address] December 17, 2017. TECHNIQUE: Utilizing a 1.5 Angelica magnet and dedicated coil, multiplanar, multiecho imaging of the brain was performed pre and postcontrast administration. IV administration of 7.5 mL of Gadavist contrast was uneventful. FINDINGS: There are no foci of restricted diffusion. No acute intracranial hemorrhage, midline shift or mass effect is present. Ventricular dilatation is unchanged and likely due to atrophy. The basilar cisterns are patent. There are no extra-axial collections. Flow-voids for the major intracranial vessels are present. A suspected 6 mm meningioma along the anterior falx is unchanged since MRI of March 07, 2016. No additional intracranial masses are present. White matter T2 hyperintense foci are similar to previous exam and suggest small vessel disease. Calvarial signal is maintained. Sinuses are unremarkable. There is no fluid within the mastoid air cells. IMPRESSION: 1. No acute intracranial findings. 2. No significant change since MRI of March 07, 2016. Electronically signed by: Joshua Anna M.D. 12/18/2017 8:07 AM Dictated Date/Time: 12/18/2017 7:57 AM
[2017-12-18 08:54] LABS: HEMOGLOBIN A1C 5.9 % (4.5-5.6)
[2017-12-18 16:00] VITALS: O2SAT 97
[2017-12-18] MEDS ORDERED: OPTIRAY 320 IV PRN (16:15)
--- NOTE | 2017-12-18 16:40 | Cardiology Consultation ---
Cardiology Consultation Date of Consultation: Dec 18, 2017. Requesting Physician: Dr. Jackson Attending Physician: Dr. Jackson Reason for Consultation: Hypertensive Urgency / Emergency. Stroke like symptoms Pt evaluation today including: conversation w/ patient, physical exam, chart review, lab review, review of studies, review of inpatient medication list History of Present Illness Mrs. Ron is a 72 y/o female w/ a PMH of stress induced cardiomyopathy in 2009 and 2012, HTN, hyperlipidemia, and CAD. The Pt states she presented to the ED last night around 9:30pm after experiencing increasing difficulty walking, difficulty with thought processing, and "slowed" speech. Upon arrival at the ED , she states she also began experiencing "heaviness" on the R side of her face including R sided ptosis and R sided weakness of her body. She also admitted to a 01/04 ROBLES, nausea, and dizziness that were worsening. Additionally, Pt states that she was experiencing palpitations and mild chest discomfort at rest which she described as a "pulsating" sensation. She states she felt SOB at rest which she believes to be both from her symptoms and anxiety. She states that her first BP at the ED was around 220/112 mmHg. She denied any vision loss from her R eye or diplopia. Pt states that her R sided facial sensations of "heaviness" have resolved and denies current R sided weakness. She states since receiving antihypertensives around 4:30am this morning her nausea, ROBLES, and SOB have resolved. She denies any current chest pain at rest or upon exertion, palpitations, AMBROCIO, SOB at rest , orthopnea, edema, lightheadedness, dizziness, diplopia, or ROBLES. Pt denies hematuria, hematochezia, melena, or claudication. The Pt does state that her passed 10 days ago from metastatic cancer and this has been causing her significant amounts of stress. She also states she has been largely confined to her house for the past 9 months trying to care for her . Over this time period, she states her stress has continued to worsen and states she worries about everything. All other 10 point ROS are reviewed and otherwise negative at this time. Past Medical/Surgical History 1. Stress induced cardiomyopathy - August 2009, December 2012 2. Hypertension 3. Dyslipidemia 4. Anxiety 5. Cardiac catheterization - 2009: 10-20% proximal mid LAD stenoses. Mild circumflex stenoses. Minor RCA irregularities. Family History FH: heart disease Mother: PSVT, scoliosis, hydrocephalus, stroke Father: HTN, CAD, obesity. from [place] at 54 y/o Grandmother: stroke Social History Smoking Status: Former Smoker (Quit in 1989) History of Alcohol Use: Yes (previously a social drinker) Allergies Coded Allergies: Morphine (Verified Allergy, Unknown, RASH, 12/19/17) Penicillins (Verified Allergy, Unknown, SWELLING, 12/19/17) Nitroglycerin (Verified Adverse Reaction, Unknown, DIZZY, 12/19/17) Statins (Verified Adverse Reaction, Unknown, GI SYMPTOMS, 12/19/17) Medications Current Inpatient Medications Medications (Trade) Dose Ordered Sig/Aura Route Start Time Stop Time Status Last Admin Dose Admin Gadobutrol (Gadavist) 7.5 mmol UD PRN IV 12/18/17 00:30 12/22/17 00:29 Miscellaneous Information (Pharmacist Discharge Med Rec Consult) 1 ea UD PRN N/A 12/18/17 02:15 01/17/18 02:14 Acetaminophen (Tylenol Tab) 650 mg Q4H PRN PO 12/18/17 02:15 01/17/18 02:14 Al Hydrox/Mg Hydrox/Simethicone (Maalox Max Susp) 15 ml Q4H PRN PO 12/18/17 02:15 01/17/18 02:14 Ondansetron HCl (Zofran Inj) 4 mg Q6H PRN IV 12/18/17 02:15 01/17/18 02:14 12/18/17 03:26 4 MG Polyethylene (Miralax Powder Packet) 17 gm DAILY PRN PO 12/18/17 02:15 01/17/18 02:14 Aspirin (Ecotrin Tab) 81 mg DAILY PO 12/18/17 09:00 01/17/18 08:59 12/18/17 07:43 81 MG Lorazepam (Ativan Tab) 0.5 mg TID PRN PO 12/18/17 02:15 01/17/18 02:14 Multivitamins (Multivitamin Tab) 1 tab DAILY PO 12/18/17 09:00 01/17/18 08:59 12/18/17 07:44 1 TAB Ondansetron HCl (Zofran Tab) 4 mg Q8 PRN PO 12/18/17 02:15 01/17/18 02:14 Lisinopril (Zestril Tab) 10 mg QAM PO 12/18/17 09:00 01/17/18 08:59 12/18/17 07:44 10 MG Labetalol HCl (Normodyne IV) 10 mg Q4 PRN IV 12/18/17 02:30 01/17/18 02:29 12/18/17 04:28 10 MG Promethazine HCl 12.5 mg/Sodium Chloride 50.5 ml @ 204 mls/hr Q6H PRN IV 12/18/17 04:15 01/17/18 04:14 12/18/17 05:01 204 MLS/HR Physical Exam Vital Signs Past 12 Hours Date Time Temp Pulse Resp B/P (MAP) Pulse Ox O2 Delivery O2 Flow Rate FiO2 12/18/17 08:00 Room Air 12/18/17 07:20 36.8 66 18 128/63 (84) 97 Room Air 12/18/17 05:00 65 189/81 (117) 12/18/17 04:16 37.0 78 16 186/103 (130) 94 Room Air 12/18/17 03:52 94 Room Air General: A&O x 3 and in NAD. Well-nourished and well-developed. Mildly obese. Appears to be in a pleasant mood. No malodors detected. HEENT: Normocephalic, atraumatic. Anicteric. PERRLA. EOM intact. No obvious ptosis noted. No obvious facial palsies noted. Neck: Supple with no obvious lymphadenopathy. No obvious JVD noted. Carotid pulse 2/2 b/l with no bruits noted. Chest: No obvious deformities. No accessory muscle use noted. Lungs clear to auscultation b/l w/ no presence of rales, rhonchi, wheeze, or crackles. No diminished breath sounds noted b/l. Heart: PMI non-displaced. No lifts or heaves palpated. Regular rate and rhythm w / audible S1 and S2. No rubs, gallops, or murmurs auscultated. Abdomen: Normoactive bowel sounds auscultated x 4 quadrants. No aortic, renal, iliac, or femoral bruits auscultated. Soft and nondistended. No organomegaly or masses detected. (-) rebound tenderness. Extremities: No edema noted on LE b/l. Posterior tibial, radial, and carotid pulses intact, 2/2, and symmetric. No obvious skin changes present in extremities. Neuro: No obvious slurring or slowing of speech noted. Pt able to answer questions and recall remote and recent memory w/o significant difficulty. Pleasant affect. Data Laboratory Results: Last 24 Hours Test 12/17/17 21:20 12/17/17 21:30 12/17/17 21:43 12/17/17 22:58 White Blood Count 10.43 K/uL Red Blood Count 4.46 M/uL Hemoglobin 13.4 g/dL Hematocrit 40.5 % Mean Corpuscular Volume 90.8 fL Mean Corpuscular Hemoglobin 30.0 pg Mean Corpuscular Hemoglobin Concent 33.1 g/dl RDW Standard Deviation 47.4 fL RDW Coefficient of Variation 14.2 % Platelet Count 319 K/uL Mean Platelet Volume 10.7 fL Prothrombin Time 10.0 SECONDS Prothromb Time International Ratio 1.0 Activated Partial Thromboplast Time 29.3 SECONDS Partial Thromboplastin Ratio 1.1 Sodium Level 139 mmol/L Potassium Level 3.2 mmol/L Chloride Level 104 mmol/L Carbon Dioxide Level 28 mmol/L Anion Gap 7.0 mmol/L 16.0 mmol/L Blood Urea Nitrogen 10 mg/dl Creatinine 0.67 mg/dl Estimated GFR () 100.4 Estimated GFR (Non- 86.6 BUN/Creatinine Ratio 14.9 Random Glucose 94 mg/dl Calcium Level 9.2 mg/dl Total Bilirubin 0.3 mg/dl Aspartate Amino Transf (AST/SGOT) 23 U/L Alanine Aminotransferase (ALT/SGPT) 29 U/L Alkaline Phosphatase 85 U/L Total Protein 8.9 gm/dl Albumin 4.0 gm/dl Globulin 4.9 gm/dl Albumin/Globulin Ratio 0.8 Bedside Hemoglobin 14.3 g/dl Bedside Hematocrit 42 % Bedside Sodium 143 mEq/L Bedside Potassium 3.3 mEq/L Bedside Chloride 102 mEq/L Bedside Total CO2 29 mEq/l Bedside Blood Urea Nitrogen 10 mg/dl Bedside Creatinine 0.6 mg/dl Bedside Glucose (other) 96 mg/dl Bedside Ionized Calcium (Fela) 1.09 mmol/l Bedside Glucose 89 mg/dl Troponin I < 0.015 ng/ml Test 12/18/17 06:38 Estimated Average Glucose 123 mg/dl Hemoglobin A1c 5.9 % Triglycerides Level 127 mg/dl Cholesterol Level 227 mg/dl HDL Cholesterol 65 mg/dl LDL Cholesterol, Calculated 137 mg/dl VLDL Cholesterol, Calculated 25 mg/dl Cholesterol/HDL Ratio 3.5 EKG: Sinus rhythm with occasional PVCs. Left axis deviation and moderate voltage criteria for LVH. No acute changes. Telemetry reviewed: Predominantly normal sinus rhythm with PVCs and occasional brief episodes of narrow complex tachycardia either atrial tachycardia vs brief runs of atrial fibrillation. Assessment & Plan Mrs. Ron is a 72 y/o female w/ a PMH of stress induced cardiomyopathy in 2009 and 2012, HTN, hyperlipidemia, and non-occlusive CAD. The Pt states she presented to the ED last night around 9:30pm after experiencing increasing difficulty walking, difficulty with thought processing, and "slowed" speech. Upon arrival at the ED, she states she also began experiencing "heaviness" on the R side of her face including R sided ptosis and R sided weakness of her body. She also admitted to a /10 ROBLES, nausea, and dizziness that were worsening. Additionally, Pt states that she was experiencing palpitations and mild chest discomfort at rest which she described as a "pulsating" sensation. She states she felt SOB at rest which she believes to be both from her symptoms and anxiety. She states that her first BP at the ED was around 220/112 mmHg. She denied any vision loss from her R eye or diplopia. Regarding the Pt's hypertensive urgency/emergency, it appears that presently her BPs are well controlled with her most recent being 128/63 mmHg measured at 07:20. It is recommended that we continue close monitoring of her BP and continue the prescribed regimen of Lisinopril 10mg PO QAM. Recommend adjusting dosage as needed based on BP readings. Would strongly consider a renal artery U/ S. In light of her possible atrial fibrillation, would recommend a cardiac event monitor to further qualify and quantify the presence of atrial arrhythmia. Additionally, in light of her non-occlusive CAD, recommend reinitiation of statin therapy for prevention and Aspirin daily. Due to Pt previous relative intolerance experienced with high dose Atorvastatin, it is recommended that she begins with a low dose statin 2 days/week. Pending Pt tolerance of regimen, frequency of statin use during the week should be slowly increased. Patient was seen and examined by me in conjunction with Mr. Arnettr. She has no current cardiac symptoms. Echocardiography on this admission reveals normal LV systolic function. No cardiac embolic source noted. Her blood pressures have improved. No obvious residual neurologic symptoms at this time. Agree with current antihypertensive regimen. Agree with outpatient cardiac event monitor to further assess for any underlying significant arrhythmia including atrial fibrillation. Agree with physical exam as above. Agree with assessment and recommendations. Outpatient Cardiology follow-up with me. Thank you for asking us to see this patient in Cardiology consultation.
--- NOTE | 2017-12-18 16:44 | ECHOCARDIOGRAM REPORT ---
*NOTICE TO RECEIVING REPUBL[employer] AGENCY This information is strictly Confidential and protected under [place] law. [place] law prohibits you from making any further disclosure of this information unless further disclosure is expressly permitted by the written consent of the person to whom it pertains or is authorized by law. A general authorization for the release of medical or other information is not sufficient for this purpose. Hospital accepts no responsibility if the information is made available to any other person, INCLUDING THE PATIENT. Interpretation Summary * Name: JOSE MORALES Study Date: 12/18/2017 01:03 PM BP: 189/81 mmHg * Patient Location: [facility]\S\[id number]\S\2 HR: 67 * : 1945 (M/d/yyyy) Gender: Female Height: 60 in * Age: 72 yrs Ethnicity: NA Weight: 175 lb * Ordering Physician: Hayes Jackson * Referring Physician: Self, Referred * Performed By: Mi Chaparro RDCS * * Reason For Study: CVA * BSA: 1.8 m2 * -- Conclusions -- * Normal LV chamber size with mild concentric LVH. * Normal LV systolic function, EF 55-60%. * No segmental left ventricular wall motion abnormalities are noted. * Grade I diastolic dysfunction. * Mild aortic regurgitation. * Borderline dilated ascending aorta. Procedure Details * A complete two-dimensional transthoracic echocardiogram was performed (2D, M-mode, Doppler and color flow Doppler). * The study was technically difficult. * The study was technically difficult, but visualization was adequate with the administration of Definity ultrasound contrast. * There were technical limitations due to patient'sbody habitus * A saline contrast injection was performed to assess for cardiac shunting. * The injection was performed through an intravenous line in the left arm. * The attending nurse who injected the saline contrast was Ciara Pimentel RN. * A total of 10 cc of agitated saline was given. * A contrast injection of Definity was performed to improve assessment of LV function. * Contrast was injected into an intravenous site in the left arm. * One vial of Definity ultrasound contrast was diluted in normal saline to a total volume of 10 ml. A total of '1' ml of solution was administered during imaging. * Lot # [id number] of Definity utilized for procedure. * Expiration date . * The attending nurse who injected the contrast agent was Ciara Pimentel RN. Left Ventricle * The left ventricle is normal in size. * There is mild concentric left ventricular hypertrophy. * Ejection Fraction = 55-60%. * Left ventricular systolic function is normal. * No segmental left ventricular wall motion abnormalities are noted. * The left ventricular wall motion is normal. Right Ventricle * The right ventricular cavity size is normal (basal dimension <4.2 cm in right ventricular apical 4-chamber view). * The right ventricular systolic function is normal as assessed by tricuspid annular plane systolic excursion (TAPSE) (normal >1.5 cm). Atria * The left atrium is mildly dilated. * Right atrium is small. * No ASD detected; PFO is not assessed. Mitral Valve * There is mild mitral annular calcification. * There is no mitral valve stenosis. * There is no mitral regurgitation noted. Tricuspid Valve * The tricuspid valve is normal in structure and function. Aortic Valve * The aortic valve is not well visualized. * No hemodynamically significant valvular aortic stenosis. * Mild aortic regurgitation. Pulmonic Valve * The pulmonary valve is not well seen, but the Doppler examination is normal without significant regurgitation or stenosis. Great Vessels * The aortic root is normal size. * Borderline dilated ascending aorta. Pericardium/Pleural * There is no pericardial effusion. Left Ventricular Diastolic Function * Grade I diastolic dysfunction, (abnormal relaxation pattern). MMode 2D Measurements and Calculations IVSd 1.4 cm IVSs 1.5 cm LVIDd 3.5 cm LVIDs 2.5 cm LVPWd 1.4 cm LVPWs 1.5 cm IVS/LVPW 0.97 FS 30.0 % EDV(Teich) 51.0 ml ESV(Teich) 21.3 ml EF(Teich) 58.2 % EDV(cubed) 43.0 ml ESV(cubed) 14.8 ml EF(cubed) 65.7 % % IVS thick 10.9 % % LVPW thick 2.8 % LV mass(C)d 171.6 grams LV mass(C)dI 97.3 grams/m\S\2 LV mass(C)s 121.2 grams LV mass(C)sI 68.7 grams/m\S\2 SV(Teich) 29.7 ml SI(Teich) 16.8 ml/m\S\2 SV(cubed) 28.2 ml SI(cubed) 16.0 ml/m\S\2 Ao root diam 2.9 cm Ao root area 6.6 cm\S\2 ACS 2.0 cm LA dimension 3.4 cm asc Aorta Diam 4.0 cm LA/Ao 1.2 LVAd ap4 26.8 cm\S\2 LVLd ap4 8.0 cm EDV(MOD-sp4) 72.9 ml EDV(sp4-el) 76.2 ml LVAs ap4 15.4 cm\S\2 LVLs ap4 6.8 cm ESV(MOD-sp4) 29.2 ml ESV(sp4-el) 29.7 ml EF(MOD-sp4) 60.0 % EF(sp4-el) 61.1 % LVAd ap2 32.2 cm\S\2 LVLd ap2 8.7 cm EDV(MOD-sp2) 97.5 ml EDV(sp2-el) 101.2 ml LVAs ap2 20.2 cm\S\2 LVLs ap2 8.0 cm ESV(MOD-sp2) 42.8 ml ESV(sp2-el) 43.4 ml EF(MOD-sp2) 56.1 % EF(sp2-el) 57.1 % LVLd %diff 8.0 % EDV(MOD-bp) 88.0 ml LVLs %diff 14.7 % ESV(MOD-bp) 37.1 ml EF(MOD-bp) 57.8 % SV(MOD-sp4) 43.7 ml SI(MOD-sp4) 24.8 ml/m\S\2 SV(MOD-sp2) 54.7 ml SI(MOD-sp2) 31.0 ml/m\S\2 SV(MOD-bp) 50.9 ml SI(MOD-bp) 28.9 ml/m\S\2 SV(sp4-el) 46.6 ml SI(sp4-el) 26.4 ml/m\S\2 SV(sp2-el) 57.8 ml SI(sp2-el) 32.8 ml/m\S\2 Doppler Measurements and Calculations MV E max jose 83.6 cm/sec MV A max jose 113.8 cm/sec MV E/A 0.73 MV dec time 0.43 sec Ao V2 max 151.0 cm/sec Ao max PG 9.1 mmHg Ao max PG (full) 4.3 mmHg AI max jose 322.7 cm/sec AI max PG 41.6 mmHg AI dec slope 157.5 cm/sec\S\2 AI P1/2t 600.0 msec LV V1 max PG 4.8 mmHg LV V1 max 110.0 cm/sec PA V2 max 85.4 cm/sec PA max PG 2.9 mmHg PI max jose 166.5 cm/sec PI max PG 11.1 mmHg PI dec slope 156.8 cm/sec\S\2 PI P1/2t 311.0 msec TR max jose 207.1 cm/sec
--- NOTE | 2017-12-18 17:02 | NEUROLOGY CONSULTATION ---
DATE OF CONSULTATION: 12/18/2017 REASON FOR CONSULTATION: Episode of slow thinking and right-sided weakness. HISTORY OF PRESENT ILLNESS: The patient is a 72-year-old right-handed female with a history of Takotsubo cardiomyopathy in 2009 which patient indicates has recurred 3 times; hyperlipidemia, not on meds and borderline hypertension, not on meds. The patient has been in her usual state of health last evening, noted that she was slow in thinking and slow in movement, perhaps had some difficulty finding the right words. These symptoms evolved over a relatively short period of time. She had a mild headache and came out to the Emergency Room. While in the Emergency Room, she indicated that the headache which was right-sided nonthrobbing escalated fairly rapidly and was associated with the inability to open her right eye or right facial droop and then right arm and right leg weakness. Her neurologic symptoms lasted approximately 4 hours. On admission to the Emergency Room, she was markedly hypertensive. Her son indicates when she eventually was given something for hypertension, her headache markedly improved and her neurologic symptoms started to resolve. She was evaluated by the [facility] neurologist who thought she was not a candidate for TPA because of what I assume was a nearly-normal neurologic exam. Her evaluation at that time included a head CT, noncontrast, which was unremarkable. MRI of the brain showing a 6 mm meningioma in the anterior falx unchanged since 2016, bilateral white matter changes consistent with small vessel cerebrovascular disease. No acute diffusion-weighted abnormality. Her carotid ultrasound showed no significant stenosis and her EKG was sinus rhythm with PVCs, left axis deviation, moderate voltage criteria for LVH. White count, H and H and platelet count were normal. PT 10, INR 1.0, PTT 29.3. Chemistry profile notable for an ionized calcium of 1.09, otherwise was notable for a potassium of 3.2. PAST MEDICAL HISTORY: As above. The patient has a history in 2016 of being admitted for chronic intermittent dizziness. No clear central etiology was found at that time, but the patient did speak of having trouble thinking and finding words during the episodes of dizziness. She has no history of rheumatic fever, murmur, DVT, cancer or prior stroke. SURGICAL HISTORY: Cataract surgery, EGD. MEDICATIONS ON ADMISSION: The patient was to be taking aspirin but had not done so for about 4 weeks. SOCIAL HISTORY: Nonsmoker, nondrinker. She has a Ph.D. Her approximately 10 days ago. ALLERGIES: MORPHINE, NITROGLYCERIN, PENICILLIN "STATIN." PHYSICAL EXAMINATION: GENERAL: She is awake and alert. Speech and language are unremarkable. Repetitions, 3-step commands and naming are normal. She is oriented x 3. VITAL SIGNS: Temperature 36.8, pulse 66, respiratory rate 18, blood pressure 128/63, saturations 97% on room air. NECK: Supple. There are no carotid bruits. HEART: Regular rate and rhythm. NEUROLOGIC: Pupils are postsurgical, and miotic, both reactive. I could not reliably visualize the optic nerves. There were normal visual abdi, motility, facial sensation, facial symmetry. Speech and language were normal. Tongue was midline. Motor: Normal bulk and tone. No atrophy or fasciculations are noted. There is full strength, no drift, equal rapid alternating movements. [id number] and [id number] are normal. There is no dysdiadochokinesia. Patient felt that she was abnormally sensitive to light touch in the right arm and right leg compared to left. IMPRESSION: Probable transient ischemic attack. RECOMMENDATIONS: 1. Recommend dual antiplatelet therapy with Plavix and aspirin for 3 months and then aspirin alone as she has been noncompliant recently. 2. Recommend CTA of head given her report of severe headache at onset and suggestion of right ptosis, rule out right PCOM aneurysm. 3. Further vascular workup including echo, telemetric monitoring. Patient will need an outpatient monitor. 4. Defer to primary care regarding statin use given her history of intolerance. We will follow with you. STU
--- NOTE | 2017-12-18 18:01 | DIAGNOSTIC IMAGING REPORT ---
CT HEAD ANGIO WITH CONTRAST CLINICAL HISTORY: Stroke, hypertensive urgency. TECHNIQUE: CT angiography of the head was performed in a dynamic helical fashion during intravenous administration of 94 cc of Optiray 320. A dose lowering technique was utilized adhering to the principles of ALARA. MIP imaging was performed. CT DOSE: 118.69 mGy.cm COMPARISON STUDY: Noncontrast head CT dated 12/17/2017, MRI the brain dated 12/17/2017 FINDINGS: Postcontrast images reveal no pathologically enhancing masses. There are moderate white matter hypodensities likely on a small vessel basis. There is mild ventricular dilatation, likely secondary to volume loss Angiographic images reveal no major intracranial branch occlusions. There are no lesion suspicious for aneurysm. IMPRESSION: 1. No evidence of intracranial branch occlusion or significant intracranial stenosis 2. No evidence of aneurysm Electronically signed by: Dariusz Perez M.D. 12/18/2017 6:00 PM Dictated Date/Time: 12/18/2017 5:56 PM
[2017-12-18] MEDS: CLOPIDOGREL BISULFATE 75 MG TAB PO SCH (18:14)
[2017-12-18] MEDS ORDERED: ATORVASTATIN 10 MG TAB PO ONE (18:15)
--- NOTE | 2017-12-18 18:15 | Progress Note ---
Progress Note Date of Service Dec 18, 2017. Progress Note Subjective: Patient seen several times today. She reports that she is feeling better. Denies problems with her thinking at this time. Denies problems with her speech. Denies any focal weakness of Extremities. No chest pain or shortness of breath Physical Exam General: no acute distress Eyes: EOMI Neck: no JVD Heart: Regular rate and rhythm Lungs: CTABL, no wheezing, no shortness of breath Abdomen: soft, nontender, positive bowel sounds Extremities: no edema, no calf tenderness, moves extremities Assessment and Plan Probable TIA This is a 72-year-old female who presents with stroke-like symptoms on admission with slurred speech (While in the Emergency Room, she indicated that the headache which was right-sided nonthrobbing escalated fairly rapidly and was associated with the inability to open her right eye or right facial droop and then right arm and right leg weakness. Her neurologic symptoms lasted approximately 4 hours. On admission to the Emergency Room, she was markedly hypertensive. Her son indicates when she eventually was given something for hypertension, her headache markedly improved and her neurologic symptoms started to resolve) -in the ED Stroke alert was called, but Analisa's neurologist determine that patient was not a candidate for TPA -head CT noncontrast unremarkable -MRI of the brain showing a 6 mm meningioma in the anterior falx unchanged since 2016, bilateral white matter changes consistent with small vessel cerebrovascular disease. No acute diffusion-weighted abnormality. -carotid ultrasound showed no significant stenosis -CTA 1. No evidence of intracranial branch occlusion or significant intracranial stenosis 2. No evidence of aneurysm -Neurology service recommend dual antiplatelet therapy with Plavix and aspirin for 3 months and then aspirin alone as she has been noncompliant recently. -will continue telemetry monitoring in the hospital, neurology service recommends outpatient cardiac monitoring History of Takotsubo cardiomyopathy, it was resolved Echocardiogram * Normal LV chamber size with mild concentric LVH. * Normal LV systolic function, EF 55-60%. * No segmental left ventricular wall motion abnormalities are noted. * Grade I diastolic dysfunction. * Mild aortic regurgitation. * Borderline dilated ascending aorta. Uncontrolled hypertension, urgency/ emergency -continue on lisinopril 10 mg daily and labetalol p.r.n -titrate up antihypertensives if needed, currently blood pressure controlled -Cardiology service recommends renal artery U/S, threat monitoring analyst, and reinitiation of low dose atorvastatin -will give 10 mg atorvastatin tonight and slowly titrate and monitor for side effects Anxiety. Continue Ativan p.r.n. Deep venous thrombosis prophylaxis, SCDs has been evaluated by PT which deems patient to return home upon discharge vs OT which deems possible facility physical rehabilitation will discuss with patient when medically ready for discharge what her preferences are Full Code Son [phone] Son [phone]
[2017-12-18] MEDS ORDERED: POTASSIUM CHLORIDE 20 MEQ TABCR PO STA (19:10)
[2017-12-18 19:46] VITALS: BP 150/83; PULSE 75; TEMP 36.6; O2SAT 96
[2017-12-19 00:46] VITALS: BP 134/79; PULSE 64; TEMP 36.6; O2SAT 96
[2017-12-19 04:00] VITALS: BP 133/80; PULSE 58; TEMP 36.8; O2SAT 95
--- NOTE | 2017-12-19 07:07 | DIAGNOSTIC IMAGING REPORT ---
RENAL ARTERY DUPLEX ULTRASOUND CLINICAL HISTORY: Severe hypertension COMPARISON STUDY: None FINDINGS: Grayscale, color-flow, and spectral waveform analysis was performed. The right kidney measures 12.8 cm in length. The left kidney measures 12 cm in length. The peak systolic velocity within the aorta measures 80 cm/s. The peak systolic velocity within the right renal artery measures 122 cm/s. The peak systolic velocity within the left renal artery measures 186 cm/s. The renal veins are patent. There is no hydronephrosis. IMPRESSION: No ultrasonographic evidence of renal artery stenosis. Electronically signed by: Dariusz Perez M.D. 12/19/2017 7:05 AM Dictated Date/Time: 12/19/2017 7:04 AM
[2017-12-19 07:18] LABS: BASO % 0.5 %; BASO ABS # 0.04 K/uL (0-0.2); EOS % 2.3 %; HEMATOCRIT 38.2 % (37-47); HEMOGLOBIN 12.8 g/dL (12.0-16.0); IG# 0.02 K/uL (0.00-0.02); LYMPH % 29.1 %; LYMPH ABS # 2.54 K/uL (1.2-3.4); MEAN CELL VOLUME 89.5 fL (80-100); MEAN CORPUSCULAR HGB CONC 33.5 g/dl (32-36); MEAN PLATELET VOLUME 10.5 fL (7.4-10.4); MONO % 7.7 %; MONO ABS # 0.67 K/uL (0.11-0.59); NEUT % 60.2 %; NEUT ABS # 5.26 K/uL (1.4-6.5); PLATELET COUNT 288 K/uL (130-400); RED CELL DISTRIBUTION WIDTH CV 14.5 % (11.5-14.5); RED CELL DISTRIBUTION WIDTH SD 47.1 fL (36.4-46.3); WHITE BLOOD COUNT 8.73 K/uL (4.8-10.8)
[2017-12-19 07:39] VITALS: BP 119/75; PULSE 58; TEMP 36.6; O2SAT 92
[2017-12-19] MEDS: MULTIVITAMIN TAB PO SCH (07:49)
[2017-12-19] MEDS: CLOPIDOGREL BISULFATE 75 MG TAB PO SCH (07:49)
[2017-12-19] MEDS: LISINOPRIL 10 MG TAB PO SCH (07:49)
[2017-12-19] MEDS: ASPIRIN 81 MG ECTAB PO SCH (07:49)
[2017-12-19 07:53] LABS: CREATININE 0.68 mg/dl (0.60-1.20); POTASSIUM 3.9 mmol/L (3.5-5.1)
--- NOTE | 2017-12-19 10:11 | PROGRESS NOTE ---
DATE: 12/19/2017 SUBJECTIVE: I am seeing Ms. Ron in followup of a poorly localized transient ischemic attack. CTA of the head done because of a fairly significant headache and by report ptosis, showed no significant branch occlusion, stenosis, or aneurysm. A carotid ultrasound showed no high-grade stenosis. An MRI of the brain was normal. She has not had any recurrent neurologic symptoms. She is considering going to a short-term rehabilitation as she had been a fairly poor ambulatory status in the 9 months she was caring for her who was ill, and had, had multiple falls. She has not had any recurrent symptoms. OBJECTIVE: VITAL SIGNS: 36.6, 58, 20, 119/75, 92% on room air. There is no facial asymmetry, no dysarthria. The patient moves all 4 extremities symmetrically and her gait is mildly slow, but steady with a walker. IMPRESSION: Poorly localizing transient ischemic attack. Continue risk factor modification, dual antiplatelet therapy for 3 months and then discontinue Plavix. She should monitor for excessive bruising or bleeding. Statin if tolerated. Good control of blood pressure in the long run. The patient should see us in followup 2-3 weeks postdischarge. STU
--- NOTE | 2017-12-19 11:12 | Progress Note ---
Internal Med Progress Note Date of Service: Dec 19, 2017. Provider Documentation: Subjective: Denies problems with her thinking at this time. Denies problems with her speech. Denies any focal weakness of Extremities. No chest pain or shortness of breath Physical Exam General: no acute distress Eyes: EOMI Neck: no JVD Heart: Regular rate and rhythm Lungs: CTABL, no wheezing, no shortness of breath Abdomen: soft, nontender, positive bowel sounds Extremities: no edema, no calf tenderness, moves extremities ASSESSMENT & PLAN: Hospital Course and Discharge Plans Probable TIA (Transient Ischemic Attack) This is a 72-year-old female who presents with stroke-like symptoms on admission with slurred speech (While in the Emergency Room, she indicated that the headache which was right-sided nonthrobbing escalated fairly rapidly and was associated with the inability to open her right eye or right facial droop and then right arm and right leg weakness. Her neurologic symptoms lasted approximately 4 hours. On admission to the Emergency Room, she was markedly hypertensive. Her son indicates when she eventually was given something for hypertension, her headache markedly improved and her neurologic symptoms started to resolve) -in the ED Stroke alert was called, but Analisa's neurologist determine that patient was not a candidate for TPA -head CT noncontrast unremarkable -MRI of the brain showing a 6 mm meningioma in the anterior falx unchanged since 2016, bilateral white matter changes consistent with small vessel cerebrovascular disease. No acute diffusion-weighted abnormality. -carotid ultrasound showed no significant stenosis -CTA 1. No evidence of intracranial branch occlusion or significant intracranial stenosis 2. No evidence of aneurysm -Neurology service recommend dual antiplatelet therapy with Plavix and aspirin for 3 months and then aspirin alone -Patient does not have any telemetry events however neurology service recommends outpatient cardiac monitoring History of Takotsubo cardiomyopathy in the past, it was resolved Echocardiogram 12/18/17 * Normal LV chamber size with mild concentric LVH. * Normal LV systolic function, EF 55-60%. * No segmental left ventricular wall motion abnormalities are noted. * Grade I diastolic dysfunction. * Mild aortic regurgitation. * Borderline dilated ascending aorta. As per [facility] cardiology service "in light of her non-occlusive CAD, recommend reinitiation of statin therapy for prevention and Aspirin daily. Due to Pt previous relative intolerance experienced with high dose Atorvastatin, it is recommended that she begins with a low dose statin 2 days/week. Pending Pt tolerance of regimen, frequency of statin use during the week should be slowly increased." -patient was offered low dose atorvastatin but she has declined and at this point does not want to be discharged with atorvastatin until follow up with a primary care doctor Uncontrolled hypertension, urgency/ emergency -due to not being on blood pressure medication at home -controlled on lisinopril 10 mg daily -normal renal artery ultrasound Anxiety history. Continue Ativan p.r.n. Discharge Instructions Please take aspirin and clopidogrel daily for 3 months and then only aspirin daily. Monitor for bleeding while on these medications Please take lisinopril daily Please re-discuss with primary care doctor on being on atorvastatin 12/24/2017 1:00 PM Zach Cloud MD General Internal Medicine [facility] (Primary care doctor can set up outpatient cardiac monitoring) 01/05/2018 1:[address] Gimenez Neurology at Address: [address] [facility] [place] [address] Other appointments 02/02/2018 3:30 PM Anjelica Madrigal MD Urology, [facility] 02/04/2018 8:50 AM [id number] [facility] Radiology [address] please follow up with [facility] cardiology service as needed Vital Signs: Date Time Temp Pulse Resp B/P (MAP) Pulse Ox O2 Delivery O2 Flow Rate FiO2 12/19/17 11:22 37.0 84 18 112/71 (85) 94 12/19/17 11:21 36.6 58 20 92 Room Air 12/19/17 08:00 Room Air 12/19/17 07:39 36.6 58 20 119/75 (90) 92 Room Air 12/19/17 04:00 36.8 58 16 133/80 (97) 95 12/19/17 00:46 36.6 64 18 134/79 (97) 96 Room Air 12/19/17 00:00 Room Air 12/18/17 19:46 36.6 75 16 150/83 (105) 96 Room Air 12/18/17 16:00 97 Room Air Lab Results: Results Past 24 Hours Test 12/19/17 06:57 Range/Units White Blood Count 8.73 4.8-10.8 K/uL Red Blood Count 4.27 4.2-5.4 M/uL Hemoglobin 12.8 12.0-16.0 g/dL Hematocrit 38.2 37-47 % Mean Corpuscular Volume 89.5 80-100 fL Mean Corpuscular Hemoglobin 30.0 25-34 pg Mean Corpuscular Hemoglobin Concent 33.5 32-36 g/dl Platelet Count 288 130-400 K/uL Mean Platelet Volume 10.5 7.4-10.4 fL Neutrophils (%) (Auto) 60.2 % Lymphocytes (%) (Auto) 29.1 % Monocytes (%) (Auto) 7.7 % Eosinophils (%) (Auto) 2.3 % Basophils (%) (Auto) 0.5 % Neutrophils # (Auto) 5.26 1.4-6.5 K/uL Lymphocytes # (Auto) 2.54 1.2-3.4 K/uL Monocytes # (Auto) 0.67 0.11-0.59 K/uL Eosinophils # (Auto) 0.20 0-0.5 K/uL Basophils # (Auto) 0.04 0-0.2 K/uL RDW Standard Deviation 47.1 36.4-46.3 fL RDW Coefficient of Variation 14.5 11.5-14.5 % Immature Granulocyte % (Auto) 0.2 % Immature Granulocyte # (Auto) 0.02 0.00-0.02 K/uL Sodium Level 140 136-145 mmol/L Potassium Level 3.9 3.5-5.1 mmol/L Chloride Level 105 98-107 mmol/L Carbon Dioxide Level 26 21-32 mmol/L Anion Gap 9.0 3-11 mmol/L Blood Urea Nitrogen 16 7-18 mg/dl Creatinine 0.68 0.60-1.20 mg/dl Est Creatinine Clear Calc Drug Dose 74.8 ml/min Estimated GFR () 99.9 Estimated GFR (Non- 86.2 BUN/Creatinine Ratio 23.6 10-20 Random Glucose 92 70-99 mg/dl Calcium Level 9.0 8.5-10.1 mg/dl Magnesium Level 2.4 1.8-2.4 mg/dl
[2017-12-19] MEDS ORDERED: ASPI81TA28 PO ×4 (11:15→23:27)
[2017-12-19] MEDS ORDERED: LSN10 PO ×2 (11:15)
[2017-12-19] MEDS ORDERED: PLV75 PO ×2 (11:15)
[2017-12-19 11:22] VITALS: BP 112/71; PULSE 84; TEMP 37; O2SAT 94
--- NOTE | 2017-12-19 12:03 | Discharge Summary ---
Discharge Summary Date of Service Dec 19, 2017. Discharge Summary Admission Date: Dec 18, 2017 at 02:21 Discharge Date: Dec 19, 2017 Discharge Disposition: Rehab ([facility]) Principal Diagnosis: Probable TIA (Transient Ischemic Attack),Hypertensive Urgency/Emergency, Hypertension Medication Reconciliation New Medications: Clopidogrel Bisulfate (Clopidogrel) 75 Mg Tab 75 MG PO QAM for 30 Days, #30 TAB Lisinopril (Zestril) 10 Mg Tab 10 MG PO QAM for 30 Days, #30 TAB Continued Medications: Aspirin (Aspirin Ec) 81 Mg Tab 81 MG PO DAILY for 30 Days, #30 TAB (This prescription has been renewed) Ibuprofen (Advil) 200 Mg Tab 200 MG PO Q6H PRN for Pain, TAB Lorazepam (Ativan) 0.5 Mg Tab 0.5 MG PO TID PRN for Anxiety, TAB Multivitamin (Multivitamin) Tab 1 TAB PO DAILY Ondansetron Hcl (Zofran) 4 Mg Tab 4 MG PO Q8 PRN for Nausea, TAB Admission Information HPI (per Admitting provider): CHIEF COMPLAINT: Slurred speech. HISTORY OF PRESENT ILLNESS: This is a 72-year-old female with past medical history significant for borderline hypertension not on medications, hyperlipidemia, history of Takotsubo cardiomyopathy in 2010, which is resolved in last echo, obesity, lactose intolerance, presents with slurred speech and not feeling well. The patient says her about 10 days ago. She lives with her son. Today in the evening while walking, she felt slow and she thought her brain was processing very slow and has some difficulty speaking, slurred speech, and at that time she could not open her right eye and some right-sided headache and she was brought into the ER. In the ER, her blood pressure is high and stroke alert was called, but her symptoms were improving and [facility] neurologist thought that she was not a candidate for TPA. CT of the head was okay. The patient had MRI of the head, but the results are still pending. Currently, she has some pressured speech, but able to speak okay. Alert and oriented, complains of headache. Denies any blurred vision. No earache, no runny nose, no sore throat. Denies any difficulty swallowing. No night sweats. Appetite is otherwise okay. No recent weight gain, weight loss. No sweating, no chest pain, no shortness of breath, was nauseous earlier, but okay now. No vomiting, no abdominal pain. Normal bowel and bladder movements. No blood in the stools, no blood in the urine, no rash, otherwise she was doing okay until this episode happened. ALLERGIES: The patient says she has allergies to MORPHINE, NITROGLYCERIN, and PENICILLINS. PAST MEDICAL HISTORY: As mentioned above. PAST SURGICAL HISTORY: Cataract surgery, EGD. MEDICATIONS: The patient is on Motrin 200 mg p.o. q. 6 hours p.r.n., aspirin 81 mg p.o. daily, Zofran 4 mg p.o. q. 8 hours p.r.n., multivitamin tablet daily, Ativan 0.5 mg p.o. q.i.d. p.r.n. FAMILY HISTORY: Significant for father had heart disorder. SOCIAL HISTORY: , presently her about 10 days ago. Lives with her son. No smoking history. No alcohol. No drugs. REVIEW OF SYMPTOMS: As per HPI. Rest of review of symptoms negative. Physical Exam (per Admitting): PHYSICAL EXAMINATION: GENERAL: The patient is of moderate built. The patient is obese, not in distress. VITAL SIGNS: Temperature 36.8, pulse 72, respiratory rate 14, blood pressure currently 185/114, oxygen 96% on room air. HEENT: No pallor, no icterus. Pupils equal, round, and reactive to light. NECK: No JVD, no neck masses, no carotid bruits. CARDIOVASCULAR: S1, S2 heard, regular rate and rhythm, no murmur, no gallop. RESPIRATORY SYSTEM: Clear to auscultation bilaterally. No wheezing, no crackles. ABDOMEN: Soft, bowel sounds present. Nontender. No distention. CENTRAL NERVOUS SYSTEM: Cranial nerves II-XII grossly intact. Power 5/5 in all extremities. Sensation is intact. No pronator drift. Position sense intact. Coordination of movements normal. EXTREMITIES: No edema, no erythema. Hospital Course Hospital Course and Discharge Plans Probable TIA (Transient Ischemic Attack) This is a 72-year-old female who presents with stroke-like symptoms on admission with slurred speech (While in the Emergency Room, she indicated that the headache which was right-sided nonthrobbing escalated fairly rapidly and was associated with the inability to open her right eye or right facial droop and then right arm and right leg weakness. Her neurologic symptoms lasted approximately 4 hours. On admission to the Emergency Room, she was markedly hypertensive. Her son indicates when she eventually was given something for hypertension, her headache markedly improved and her neurologic symptoms started to resolve) -in the ED Stroke alert was called, but Caroleen's neurologist determine that patient was not a candidate for TPA -head CT noncontrast unremarkable -MRI of the brain showing a 6 mm meningioma in the anterior falx unchanged since 2016, bilateral white matter changes consistent with small vessel cerebrovascular disease. No acute diffusion-weighted abnormality. -carotid ultrasound showed no significant stenosis -CTA 1. No evidence of intracranial branch occlusion or significant intracranial stenosis 2. No evidence of aneurysm -Neurology service recommend dual antiplatelet therapy with Plavix and aspirin for 3 months and then aspirin alone -Patient does not have any telemetry events however neurology service recommends outpatient cardiac monitoring History of Takotsubo cardiomyopathy in the past, it was resolved Echocardiogram 12/18/17 * Normal LV chamber size with mild concentric LVH. * Normal LV systolic function, EF 55-60%. * No segmental left ventricular wall motion abnormalities are noted. * Grade I diastolic dysfunction. * Mild aortic regurgitation. * Borderline dilated ascending aorta. As per [facility] cardiology service "in light of her non-occlusive CAD, recommend reinitiation of statin therapy for prevention and Aspirin daily. Due to Pt previous relative intolerance experienced with high dose Atorvastatin, it is recommended that she begins with a low dose statin 2 days/week. Pending Pt tolerance of regimen, frequency of statin use during the week should be slowly increased." -patient was offered low dose atorvastatin but she has declined and at this point does not want to be discharged with atorvastatin until follow up with a primary care doctor Uncontrolled hypertension, urgency/ emergency -due to not being on blood pressure medication at home -controlled on lisinopril 10 mg daily -normal renal artery ultrasound Anxiety history. Continue Ativan p.r.n. Discharge Instructions Please take aspirin and clopidogrel daily for 3 months and then only aspirin daily. Monitor for bleeding while on these medications Please take lisinopril daily Please re-discuss with primary care doctor on being on atorvastatin 12/24/2017 1:00 PM Zach Cloud MD General Internal Medicine [facility] (Primary care doctor can set up outpatient cardiac monitoring) 01/05/2018 1:[address] Gimenez Neurology at Address: [address], [place] [address] Other appointments 02/02/2018 3:30 PM Anjelica Madrigal MD Urology, [facility] 02/04/2018 8:[id number] [place] [address] please follow up with [facility] cardiology service as needed Total time spent on discharge = 40 minutes This includes examination of the patient, discharge planning, medication reconciliation, and communication with other providers. Discharge Instructions Discharge Instructions Please take aspirin and clopidogrel daily for 3 months and then only aspirin daily. Monitor for bleeding while on these medications Please take lisinopril daily Please re-discuss with primary care doctor on being on atorvastatin 12/24/2017 1:00 PM Zach Cloud MD General Internal Medicine [facility] (Primary care doctor can set up outpatient cardiac monitoring) 01/05/2018 1:[address] Gimenez Neurology at Address: [address], [place] [address] Other appointments 02/02/2018 3:30 PM Anjelica Madrigal MD Urology, [facility] 02/04/2018 8:[address] please follow up with [facility] cardiology service as needed Risk Factors for Stroke: You can reduce your chances of stroke by working with your medical provider to adopt a healthy lifestyle. Some specific ways to lower your chance of stroke are: * If you are a smoker, now is the time to stop smoking cigarettes * If you are diabetic, improve the control of your blood sugars * Avoid excessive amounts of alcohol * Control high blood pressure * Lose weight if you are overweight * Be sure to lead an active lifestyle * Eat a healthy diet low in salt, cholesterol and fat You should know about other risk factors for stroke that you are unable to control. These include: * Age 55 years or older * Male gender * Certain racial groups: , or / * Family History of Stroke, Mini stroke or Heart Attack * Sickle Cell Disease Follow Up: It is important for you to keep your follow up appointments with your medical provider.
--- NOTE | 2017-12-19 12:05 | Discharge Instructions ---
Discharge Instructions Date of Service Dec 19, 2017. Admission Reason for Admission: Cva, Hypertensive Emergency Discharge Discharge Diagnosis / Problem: Probable TIA (Transient Ischemic Attack), Hypertensive Urgency/Emergency,HTN Discharge Goals Goal(s): Improve function, Improve disease control Activity Recommendations Activity Limitations: per Instructions/Follow-up section . Instructions / Follow-Up Instructions / Follow-Up Hospital Course and Discharge Plans Probable TIA (Transient Ischemic Attack) This is a 72-year-old female who presents with stroke-like symptoms on admission with slurred speech (While in the Emergency Room, she indicated that the headache which was right-sided nonthrobbing escalated fairly rapidly and was associated with the inability to open her right eye or right facial droop and then right arm and right leg weakness. Her neurologic symptoms lasted approximately 4 hours. On admission to the Emergency Room, she was markedly hypertensive. Her son indicates when she eventually was given something for hypertension, her headache markedly improved and her neurologic symptoms started to resolve) -in the ED Stroke alert was called, but Analisa's neurologist determine that patient was not a candidate for TPA -head CT noncontrast unremarkable -MRI of the brain showing a 6 mm meningioma in the anterior falx unchanged since 2016, bilateral white matter changes consistent with small vessel cerebrovascular disease. No acute diffusion-weighted abnormality. -carotid ultrasound showed no significant stenosis -CTA 1. No evidence of intracranial branch occlusion or significant intracranial stenosis 2. No evidence of aneurysm -Neurology service recommend dual antiplatelet therapy with Plavix and aspirin for 3 months and then aspirin alone -Patient does not have any telemetry events however neurology service recommends outpatient cardiac monitoring History of Takotsubo cardiomyopathy in the past, it was resolved Echocardiogram 12/18/17 * Normal LV chamber size with mild concentric LVH. * Normal LV systolic function, EF 55-60%. * No segmental left ventricular wall motion abnormalities are noted. * Grade I diastolic dysfunction. * Mild aortic regurgitation. * Borderline dilated ascending aorta. As per [facility] cardiology service "in light of her non-occlusive CAD, recommend reinitiation of statin therapy for prevention and Aspirin daily. Due to Pt previous relative intolerance experienced with high dose Atorvastatin, it is recommended that she begins with a low dose statin 2 days/week. Pending Pt tolerance of regimen, frequency of statin use during the week should be slowly increased." -patient was offered low dose atorvastatin but she has declined and at this point does not want to be discharged with atorvastatin until follow up with a primary care doctor Uncontrolled hypertension, urgency/ emergency -due to not being on blood pressure medication at home -controlled on lisinopril 10 mg daily -normal renal artery ultrasound Anxiety history. Continue Ativan p.r.n. Discharge Instructions Please take aspirin and clopidogrel daily for 3 months and then only aspirin daily. Monitor for bleeding while on these medications Please take lisinopril daily Please re-discuss with primary care doctor on being on atorvastatin 12/24/2017 1:00 PM Zach Cloud MD General Internal Medicine [facility] (Primary care doctor can set up outpatient cardiac monitoring) 01/05/2018 1:[address] Gimenez Neurology at Address: [address] [facility] , [place] [address] Other appointments 02/02/2018 3:30 PM Anjelica Madrigal MD Urology, [facility] 02/04/2018 8:50 AM [id number] [facility] Radiology [address] please follow up with [facility] cardiology service as needed Risk Factors for Stroke: You can reduce your chances of stroke by working with your medical provider to adopt a healthy lifestyle. Some specific ways to lower your chance of stroke are: * If you are a smoker, now is the time to stop smoking cigarettes * If you are diabetic, improve the control of your blood sugars * Avoid excessive amounts of alcohol * Control high blood pressure * Lose weight if you are overweight * Be sure to lead an active lifestyle * Eat a healthy diet low in salt, cholesterol and fat You should know about other risk factors for stroke that you are unable to control. These include: * Age 55 years or older * Male gender * Certain racial groups: , or / * Family History of Stroke, Mini stroke or Heart Attack * Sickle Cell Disease Follow Up: It is important for you to keep your follow up appointments with your medical provider. Current Hospital Diet Patient's current hospital diet: AHA Diet (Heart Healthy) Discharge Diet Recommended Diet: AHA Diet (Heart Healthy) Pending Studies Studies pending at discharge: no Laboratory Results 12/19/17 06:57 Red Blood Count 4.27, Mean Corpuscular Volume 89.5, Mean Corpuscular Hemoglobin 30.0, Mean Corpuscular Hemoglobin Concent 33.5, Mean Platelet Volume 10.5, Neutrophils (%) (Auto) 60.2, Lymphocytes (%) (Auto) 29.1, Monocytes (%) (Auto) 7.7, Eosinophils (%) (Auto) 2.3, Basophils (%) (Auto) 0.5, Neutrophils # (Auto) 5.26, Lymphocytes # (Auto) 2.54, Monocytes # (Auto) 0.67, Eosinophils # (Auto) 0.20, Basophils # (Auto) 0.04 12/19/17 06:57 Test 12/17/17 21:20 12/17/17 21:30 12/17/17 21:43 12/17/17 22:58 Prothrombin Time 10.0 SECONDS (9.0-12.0) Prothromb Time International Ratio 1.0 (0.9-1.1) Activated Partial Thromboplast Time 29.3 SECONDS (21.0-31.0) Partial Thromboplastin Ratio 1.1 Total Bilirubin 0.3 mg/dl (0.2-1) Aspartate Amino Transf (AST/SGOT) 23 U/L (15-37) Alanine Aminotransferase (ALT/SGPT) 29 U/L (12-78) Alkaline Phosphatase 85 U/L (45-117) Total Protein 8.9 gm/dl (6.4-8.2) Albumin 4.0 gm/dl (3.4-5.0) Globulin 4.9 gm/dl (2.5-4.0) Albumin/Globulin Ratio 0.8 (0.9-2) Bedside Hemoglobin 14.3 g/dl (12.0-16.0) Bedside Hematocrit 42 % (37-47) Bedside Sodium 143 mEq/L (135-144) Bedside Potassium 3.3 mEq/L (3.3-5.0) Bedside Chloride 102 mEq/L (101-112) Bedside Total CO2 29 mEq/l (24-31) Bedside Blood Urea Nitrogen 10 mg/dl (7-18) Bedside Creatinine 0.6 mg/dl (0.6-1.3) Bedside Glucose (other) 96 mg/dl (70-99) Bedside Ionized Calcium (Fela) 1.09 mmol/l (1.12-1.32) Bedside Glucose 89 mg/dl (70-90) Troponin I < 0.015 ng/ml (0-0.045) Test 12/18/17 06:38 12/19/17 06:57 Estimated Average Glucose 123 mg/dl Hemoglobin A1c 5.9 % (4.5-5.6) Triglycerides Level 127 mg/dl (0-150) Cholesterol Level 227 mg/dl (0-200) HDL Cholesterol 65 mg/dl LDL Cholesterol, Calculated 137 mg/dl VLDL Cholesterol, Calculated 25 mg/dl Cholesterol/HDL Ratio 3.5 White Blood Count 8.73 K/uL (4.8-10.8) Red Blood Count 4.27 M/uL (4.2-5.4) Hemoglobin 12.8 g/dL (12.0-16.0) Hematocrit 38.2 % (37-47) Mean Corpuscular Volume 89.5 fL (80-100) Mean Corpuscular Hemoglobin 30.0 pg (25-34) Mean Corpuscular Hemoglobin Concent 33.5 g/dl (32-36) Platelet Count 288 K/uL (130-400) Mean Platelet Volume 10.5 fL (7.4-10.4) Neutrophils (%) (Auto) 60.2 % Lymphocytes (%) (Auto) 29.1 % Monocytes (%) (Auto) 7.7 % Eosinophils (%) (Auto) 2.3 % Basophils (%) (Auto) 0.5 % Neutrophils # (Auto) 5.26 K/uL (1.4-6.5) Lymphocytes # (Auto) 2.54 K/uL (1.2-3.4) Monocytes # (Auto) 0.67 K/uL (0.11-0.59) Eosinophils # (Auto) 0.20 K/uL (0-0.5) Basophils # (Auto) 0.04 K/uL (0-0.2) RDW Standard Deviation 47.1 fL (36.4-46.3) RDW Coefficient of Variation 14.5 % (11.5-14.5) Immature Granulocyte % (Auto) 0.2 % Immature Granulocyte # (Auto) 0.02 K/uL (0.00-0.02) Anion Gap 9.0 mmol/L (3-11) Est Creatinine Clear Calc Drug Dose 74.8 ml/min Estimated GFR () 99.9 Estimated GFR (Non- 86.2 BUN/Creatinine Ratio 23.6 (10-20) Calcium Level 9.0 mg/dl (8.5-10.1) Magnesium Level 2.4 mg/dl (1.8-2.4) Hemoglobin A1c Test 12/18/17 06:38 Range/Units Estimated Average Glucose 123 mg/dl Hemoglobin A1c 5.9 H 4.5-5.6 % Lipid Panel Test 12/18/17 06:38 Range/Units Triglycerides Level 127 0-150 mg/dl Cholesterol Level 227 H 0-200 mg/dl HDL Cholesterol 65 mg/dl Cholesterol/HDL Ratio 3.5 LDL Cholesterol, Calculated 137 mg/dl Medical Emergencies . Who to Call and When: Medical Emergencies: Call 911 immediately if you experience any of the following warning signs and symptoms of Stroke: * Sudden numbness or weakness of the face, arm or leg, especially on one side of the body * Sudden confusion, trouble speaking or understanding * Sudden trouble seeing in one or both eyes * Sudden trouble walking, dizziness, loss of balance or coordination * Sudden severe headache with no cause Do not delay calling 911 if you experience any warning signs or symptoms of a stroke. Delay in seeking medical attention may affect what treatments can be given to you. . Non-Emergent Contact Non-Emergency issues call your: Primary Care Provider, Neurologist Call Non-Emergent contact if: you have any medication questions . . "Provider Documentation" section prepared by Rayray Fowler. . Stroke Core Measures Reason no t-PA for Stroke: Treatment not indicated Reason no antithrom by day 2: Treatment provided - N/A Reason no antithrom at D/C: Treatment provided - N/A Reason no statin at D/C: Refusal of tx by patient Reason no anticoag w/a fib: Treatment not indicated
[2017-12-19] MEDS ORDERED: CLOP1TAB15 PO ×2 (23:27)
[2017-12-19] MEDS ORDERED: LISI10TA PO ×2 (23:27)
[2017-12-19] MEDS ORDERED: DOCU100C31 PO ×2 (23:29)
[2017-12-19] MEDS ORDERED: MULT-513 PO ×2 (23:29)
[2017-12-19] MEDS ORDERED: ACET-1256 PO ×2 (23:30)
[2017-12-19] MEDS ORDERED: SENN-65 PO ×2 (23:30)
[2017-12-19] MEDS ORDERED: POLY335019 PO ×2 (23:30)
== END 2017-12-19 13:28 | DRG 69 ==
LOC: C.EDB 20:57 → C.MED 12-18 02:21 → ENRESERV 12-18 03:19
PROVIDERS: ADMIT Internal Medicine; ATTEND Hospitalist
DX: G45.9 Transient cerebral ischemic attack, unspecified (principal); I16.0 Hypertensive urgency; I10 Essential (primary) hypertension; E87.6 Hypokalemia; J44.9 Chronic obstructive pulmonary disease, unspecified; E78.5 Hyperlipidemia, unspecified; I25.10 Atherosclerotic heart disease of native coronary artery without angina pectoris; F41.9 Anxiety disorder, unspecified; E66.9 Obesity, unspecified; Z68.28 Body mass index [BMI] 28.0-28.9, adult; Z79.82 Long term (current) use of aspirin; Z88.0 Allergy status to penicillin; Z88.5 Allergy status to narcotic agent

== ENCOUNTER 2017-12-19 22:03 | Inpatient (IN) | payer OTHER, MEDICARE ==
[~2017-12-19] VITALS: Ht 165.1 cm; Wt 76.7 kg
[~2017-12-19 22:03] MED LIST changes: +IBUP-1050 PO; +LORA-741 PO; +LSN10 PO; +ONDA4TAB46 PO; +PLV75 PO
[2017-12-19] MEDS ORDERED: SODIUM CHLORIDE 0.9% 500ML 500 ML IV STA (22:17)
[2017-12-19] MEDS ORDERED: PROCHLORPERAZINE 5 MG/ML 2 ML VIAL IV STA (22:17)
[2017-12-19] MEDS ORDERED: DiphenhydrAMINE HCL 50 MG/ML VIAL IV STA (22:17)
[2017-12-19 22:29] LABS: BASO % 0.4 %; BASO ABS # 0.05 K/uL (0-0.2); EOS % 0.5 %; EOS ABS # 0.06 K/uL (0-0.5); HEMATOCRIT 43.6 % (37-47); IG# 0.05 K/uL (0.00-0.02); LYMPH % 17.9 %; MEAN CELL VOLUME 88.8 fL (80-100); MEAN CORPUSCULAR HEMOGLOBIN 30.5 pg (25-34); MEAN CORPUSCULAR HGB CONC 34.4 g/dl (32-36); MEAN PLATELET VOLUME 10.7 fL (7.4-10.4); MONO % 4.9 %; NEUT % 75.9 %; PLATELET COUNT 331 K/uL (130-400); RED CELL DISTRIBUTION WIDTH CV 14.2 % (11.5-14.5); RED CELL DISTRIBUTION WIDTH SD 46.4 fL (36.4-46.3); WHITE BLOOD COUNT 12.26 K/uL (4.8-10.8)
--- NOTE | 2017-12-19 22:29 | EMERGENCY ROOM VISIT NOTE ---
History Report prepared by Darrell: Lukasz Velasquez Under the Supervision of: Dr. Matthias Malik M.D. First contact with patient: 22:03 Chief Complaint: HYPERTENSION Stated Complaint: HYPERTENSION/HEADACHE History of Present Illness The patient is a 72 year old female with a past medical history of asthma , hypertension, cardiac catheterization, COPD, CVA, hyperlipidemia, myocardial infarction, Takotsubo syndrome, and vertigo who presents to the Emergency Room with complaints of a "very bad" headache that began today. The patient states that the pain is located to the front of her head. She is unable to describe the pain. She denies any chest or abdominal pain. The patient's son at bedside notes that she was nauseous and vomiting prior to the onset of her headache. He notes that she presented similarly prior to the Takotsubo syndrome Source of History: patient Onset: today Position: head Symptom Intensity: "very bad" Quality: other (unable to describe) Associated Symptoms: + nausea, + vomiting, No chest pain, No abdominal pain Review of Systems See HPI for pertinent positives and negatives. A total of ten systems were reviewed and were otherwise negative. Past Medical & Surgical Medical Problems: (1) Asthma (2) Benign hypertension (3) Cardiac catheterization (4) COPD (5) CVA (cerebral vascular accident) (6) Hyperlipidemia (7) Myocardial infarction (8) Slow rate of speech (9) Takotsubo syndrome (10) Vertigo Family History FH: heart disease Social History Smoking Status: Former Smoker Alcohol Use: none Drug Use: none Marital Status: Housing Status: lives with significant other Occupation Status: retired Current/Historical Medications Scheduled Aspirin (Aspirin Ec), 81 MG PO DAILY Clopidogrel (Plavix), 75 MG PO DAILY Docusate Sodium (Docusate Sodium), 1 CAP PO BID Lisinopril (Prinivil), 10 MG PO DAILY Multivitamins/Minerals (Mvi With Minerals), 1 TAB PO DAILY Scheduled PRN Acetaminophen (Tylenol), 500 MG PO Q4 PRN for Pain or Fever Lorazepam (Ativan), 0.5 MG PO TID PRN for Anxiety Ondansetron Hcl (Zofran), 4 MG PO Q8 PRN for Nausea Polyethylene Glycol 3350 (Miralax), 17 GM PO DAILY PRN for Constipation Senna/Docusate Sod (Senokot S), 1 TAB PO DAILY PRN for Constipation Allergies Coded Allergies: Morphine (Verified Allergy, Unknown, RASH, 12/19/17) Penicillins (Verified Allergy, Unknown, SWELLING, 12/19/17) Nitroglycerin (Verified Adverse Reaction, Unknown, DIZZY, 12/19/17) Statins (Verified Adverse Reaction, Unknown, GI SYMPTOMS, 12/19/17) Physical Exam Vital Signs Date Time Temp Pulse Resp B/P (MAP) Pulse Ox O2 Delivery O2 Flow Rate FiO2 12/20/17 00:45 176/85 12/20/17 00:40 75 14 96 Room Air 12/20/17 00:30 171/86 12/20/17 00:25 70 16 96 Room Air 12/20/17 00:15 171/89 12/20/17 00:10 73 14 97 Room Air 12/20/17 00:00 186/82 12/19/17 23:55 73 14 97 Room Air 12/19/17 23:50 75 15 97 Room Air 12/19/17 23:45 185/82 12/19/17 23:35 69 15 96 Room Air 12/19/17 23:30 177/86 12/19/17 23:26 191/87 12/19/17 23:20 70 14 96 Room Air 12/19/17 23:15 208/94 12/19/17 23:11 70 14 97 Room Air 12/19/17 23:00 195/91 12/19/17 22:56 74 15 94 Room Air 12/19/17 22:51 165/95 12/19/17 22:48 82 16 95 Room Air 12/19/17 22:45 203/106 12/19/17 22:18 86 17 98 Room Air 12/19/17 22:11 85 12/19/17 22:05 224/118 12/19/17 22:04 96 Room Air 12/19/17 22:04 36.4 89 18 224/118 96 Room Air Physical Exam GENERAL: Awake, alert, NAD HENT: Normocephalic, atraumatic. EYES: Normal conjunctiva. Sclera non-icteric. PERRL. No anisocoria. NECK: Supple. No nuchal rigidity. FROM. RESPIRATORY: CTAB, no rhonchi, wheezing, crackles CARDIAC: RRR, no MRG ABDOMEN: Soft, NTND, BS+ MSK: No chest wall TTP, no LE edema NEURO: GCS 14, CN 2-12 intact, Generalized weakness, 3/5 throughout. SKIN: No rash or jaundice noted. Medical Decision & Procedures ER Provider Diagnostic Interpretation: Radiology results as stated below per my review and radiologist interpretation: CHEST ONE VIEW PORTABLE CLINICAL HISTORY: Weakness COMPARISON STUDY: November 29, 2017 FINDINGS: The cardiac and mediastinal contours are normal. There is no evidence of focal pulmonary consolidation. There is no evidence of failure. No pleural effusions are visualized.[ IMPRESSION: No active disease in the chest. Electronically signed by: Dariusz Perez M.D. 12/19/2017 10:45 PM Dictated Date/Time: 12/19/2017 10:[address] HEAD WITHOUT CONTRAST (CT) CLINICAL HISTORY: Severe headache. Weakness. COMPARISON STUDY: CT angiography of the head dated 12/18/2017, MRI the brain dated 12/17/2017. TECHNIQUE: Axial CT of the brain is performed from the vertex to the skull base. IV contrast was not administered for this examination. A dose lowering technique was utilized adhering to the principles of ALARA. CT DOSE: 614.27 mGy.cm FINDINGS: No intra or extra-axial mass lesions are visualized. There is no CT evidence of acute cortical infarction. There is no evidence of midline shift. There is no acute hemorrhage. No calvarial fractures are visualized. There are patchy white matter hypodensities likely on a small vessel basis. There is stable mild particular dilatation which is felt to be secondary to volume loss There is no evidence of acute sinusitis IMPRESSION: No acute intracranial findings Electronically signed by: Dariusz Perez M.D. 12/19/2017 10:43 PM Dictated Date/Time: 12/19/2017 10:41 PM Laboratory Results 12/19/17 21:57 Red Blood Count 4.91, Mean Corpuscular Volume 88.8, Mean Corpuscular Hemoglobin 30.5, Mean Corpuscular Hemoglobin Concent 34.4, Mean Platelet Volume 10.7, Neutrophils (%) (Auto) 75.9, Lymphocytes (%) (Auto) 17.9, Monocytes (%) (Auto) 4.9, Eosinophils (%) (Auto) 0.5, Basophils (%) (Auto) 0.4, Neutrophils # (Auto) 9.30, Lymphocytes # (Auto) 2.20, Monocytes # (Auto) 0.60, Eosinophils # (Auto) 0.06, Basophils # (Auto) 0.05 12/19/17 21:57 Test 12/19/17 21:57 White Blood Count 12.26 K/uL (4.8-10.8) Red Blood Count 4.91 M/uL (4.2-5.4) Hemoglobin 15.0 g/dL (12.0-16.0) Hematocrit 43.6 % (37-47) Mean Corpuscular Volume 88.8 fL (80-100) Mean Corpuscular Hemoglobin 30.5 pg (25-34) Mean Corpuscular Hemoglobin Concent 34.4 g/dl (32-36) Platelet Count 331 K/uL (130-400) Mean Platelet Volume 10.7 fL (7.4-10.4) Neutrophils (%) (Auto) 75.9 % Lymphocytes (%) (Auto) 17.9 % Monocytes (%) (Auto) 4.9 % Eosinophils (%) (Auto) 0.5 % Basophils (%) (Auto) 0.4 % Neutrophils # (Auto) 9.30 K/uL (1.4-6.5) Lymphocytes # (Auto) 2.20 K/uL (1.2-3.4) Monocytes # (Auto) 0.60 K/uL (0.11-0.59) Eosinophils # (Auto) 0.06 K/uL (0-0.5) Basophils # (Auto) 0.05 K/uL (0-0.2) RDW Standard Deviation 46.4 fL (36.4-46.3) RDW Coefficient of Variation 14.2 % (11.5-14.5) Immature Granulocyte % (Auto) 0.4 % Immature Granulocyte # (Auto) 0.05 K/uL (0.00-0.02) Prothrombin Time 9.7 SECONDS (9.0-12.0) Prothromb Time International Ratio 0.9 (0.9-1.1) Activated Partial Thromboplast Time 27.9 SECONDS (21.0-31.0) Partial Thromboplastin Ratio 1.1 Anion Gap 10.0 mmol/L (3-11) Est Creatinine Clear Calc Drug Dose 61.1 ml/min Estimated GFR () 88.2 Estimated GFR (Non- 76.1 BUN/Creatinine Ratio 22.9 (10-20) Calcium Level 9.1 mg/dl (8.5-10.1) Phosphorus Level 2.1 mg/dl (2.5-4.9) Magnesium Level 2.3 mg/dl (1.8-2.4) Total Bilirubin 0.4 mg/dl (0.2-1) Direct Bilirubin 0.1 mg/dl (0-0.2) Aspartate Amino Transf (AST/SGOT) 25 U/L (15-37) Alanine Aminotransferase (ALT/SGPT) 30 U/L (12-78) Alkaline Phosphatase 89 U/L (45-117) Troponin I < 0.015 ng/ml (0-0.045) Pro-B-Type Natriuretic Peptide 54 pg/ml (0-900) Total Protein 9.7 gm/dl (6.4-8.2) Albumin 4.0 gm/dl (3.4-5.0) Thyroid Stimulating Hormone (TSH) 3.090 uIu/ml (0.300-4.500) Laboratory results reviewed by me Medications Administered Medications (Trade) Dose Ordered Sig/Aura Route Start Time Stop Time Status Last Admin Dose Admin Labetalol HCl (Normodyne IV) 10 mg Q5M PRN IV 12/19/17 22:30 01/18/18 22:29 12/19/17 23:18 10 MG Sodium Chloride 500 ml @ 500 mls/hr Q1H STAT IV 12/19/17 22:17 12/19/17 23:16 DC 12/19/17 22:51 500 MLS/HR Lisinopril (Zestril Tab) 10 mg NOW ONCE PO 12/20/17 01:00 12/20/17 01:07 DC 12/20/17 01:16 10 MG Promethazine HCl 12.5 mg/Sodium Chloride 50.5 ml @ 204 mls/hr NOW ONCE IV 12/20/17 01:15 12/20/17 01:29 12/20/17 01:16 204 MLS/HR Acetaminophen (Tylenol Tab) 1,000 mg NOW ONCE PO 12/20/17 01:15 12/20/17 01:16 DC 12/20/17 01:17 1,000 MG ECG Per My Interpretation Indication: weakness Rate (beats per minute): 83 Rhythm: normal sinus Findings: T-wave inversion (Lead III), other (LAD, Normal interval, normal axis ) ED Course 221: The patient was evaluated in room C9. A complete history and physical exam was performed. 43: I discussed the case with Dr. Renetta Pearson. He will evaluate for further treatment. Medical Decision The patient is a 72 year old female with a past medical history of asthma , hypertension, cardiac catheterization, COPD, CVA, hyperlipidemia, myocardial infarction, Takotsubo syndrome, and vertigo who presents to the Emergency Room with complaints of a "very bad" headache that began today. Nursing notes reviewed. Ancillary studies and prior records reviewed. Differential diagnosis: Etiologies such as migraine headache, meningitis, sinusitis, CO exposure, ICH, SAH, infection, tumor, headache, sinus thrombosis, arterial dissection, as well as others were entertained. Patient was seen and evaluated the bedside. Patient was recently seen and admitted and diagnosed with TIA and transferred to [facility]. Patient was presenting with worsening systolic blood pressure greater than 240. Patient was presenting with severe nausea and vomiting. Patient did have severe frontal headache. No recent falls. Patient does have generalized weakness but no focal deficits. She has a GCS of 14. Patient did have blood work completed, EKG, troponin, chest x-ray, CT the brain. Labetalol IV was ordered. Upon reassessment the patient was feeling somewhat improved. Patient's blood pressure was markedly improved. Patient's EKG was unchanged as well as her blood work and CT scan. Given the patient's very elevated systolic blood pressure and symptoms I believe this is still significant for hypertensive emergency and the patient still needs improved blood pressure control. There also may be a component given the patient's 's recent . Patient was admitted to the medicine service. Medication Reconcilliation Current Medication List: was personally reviewed by wi Blood Pressure Screening Patient's blood pressure: Elevated blood pressure Referred to hospitalist. Consults Time Called: 39 Consulting Physician: Dr. Renetta Pearson Returned Call: 43 I discussed the case with Dr. Renetta Pearson. He will evaluate for further treatment. Impression Primary Impression: Hypertensive emergency Additional Impression: Headache Critical Care I have personally spent greater than 42 minutes of critical care time in the direct management of this patient. This includes bedside care, interpretation of diagnostic studies, and testing, discussion with consultants, patient, and family members, and other required patient management activities. This 42 minutes is in excess of all separately billable procedures. Scribe Attestation The scribe's documentation has been prepared under my direction and personally reviewed by me in its entirety. I confirm that the note above accurately reflects all work, treatment, procedures, and medical decision making performed by me. Departure Information Dispostion Being Evaluated By Hospitalist Referrals Zach Cloud MD (PCP) Patient Instructions My [facility] Problem Qualifiers Additional Impression: Headache Headache type: unspecified Headache chronicity pattern: acute headache Intractability: not intractable Qualified Codes: R51 - Headache
--- NOTE | 2017-12-19 22:44 | DIAGNOSTIC IMAGING REPORT ---
CT HEAD WITHOUT CONTRAST (CT) CLINICAL HISTORY: Severe headache. Weakness. COMPARISON STUDY: CT angiography of the head dated 12/18/2017, MRI the brain dated 12/17/2017. TECHNIQUE: Axial CT of the brain is performed from the vertex to the skull base. IV contrast was not administered for this examination. A dose lowering technique was utilized adhering to the principles of ALARA. CT DOSE: 614.27 mGy.cm FINDINGS: No intra or extra-axial mass lesions are visualized. There is no CT evidence of acute cortical infarction. There is no evidence of midline shift. There is no acute hemorrhage. No calvarial fractures are visualized. There are patchy white matter hypodensities likely on a small vessel basis. There is stable mild particular dilatation which is felt to be secondary to volume loss There is no evidence of acute sinusitis IMPRESSION: No acute intracranial findings Electronically signed by: Dariusz Perez M.D. 12/19/2017 10:43 PM Dictated Date/Time: 12/19/2017 10:41 PM
--- NOTE | 2017-12-19 22:46 | DIAGNOSTIC IMAGING REPORT ---
CHEST ONE VIEW PORTABLE CLINICAL HISTORY: Weakness COMPARISON STUDY: November 29, 2017 FINDINGS: The cardiac and mediastinal contours are normal. There is no evidence of focal pulmonary consolidation. There is no evidence of failure. No pleural effusions are visualized.[ IMPRESSION: No active disease in the chest. Electronically signed by: Dariusz Perez M.D. 12/19/2017 10:45 PM Dictated Date/Time: 12/19/2017 10:45 PM
[2017-12-19 22:47] LABS: INR 0.9 (0.9-1.1); PTT PATIENT 27.9 SECONDS (21.0-31.0)
[2017-12-19] MEDS: LABETALOL HCL IV 5 MG/ML 20ML IV PRN ×2 (22:47→23:18)
[2017-12-19 22:58] LABS: ALKALINE PHOSPHATASE 89 U/L (45-117); ALT/SGPT 30 U/L (12-78); AST/SGOT 25 U/L (15-37); BLOOD UREA NITROGEN 18 mg/dl (7-18); CALCIUM 9.1 mg/dl (8.5-10.1); CARBON DIOXIDE 25 mmol/L (21-32); CREATININE 0.77 mg/dl (0.60-1.20); GLUCOSE 149 mg/dl (70-99); PHOSPHORUS 2.1 mg/dl (2.5-4.9); POTASSIUM 3.7 mmol/L (3.5-5.1); SODIUM 135 mmol/L (136-145); TOTAL PROTEIN 9.7 gm/dl (6.4-8.2)
[2017-12-19] MEDS ORDERED: LISI10TA PO ×2 (23:27)
[2017-12-19] MEDS ORDERED: CLOP1TAB15 PO ×2 (23:27)
[2017-12-19] MEDS ORDERED: ASPI81TA28 PO ×2 (23:27)
[2017-12-19] MEDS ORDERED: DOCU100C31 PO ×2 (23:29)
[2017-12-19] MEDS ORDERED: MULT-513 PO ×2 (23:29)
[2017-12-19] MEDS ORDERED: POLY335019 PO ×2 (23:30)
[2017-12-19] MEDS ORDERED: ACET-1256 PO ×2 (23:30)
[2017-12-19] MEDS ORDERED: SENN-65 PO ×2 (23:30)
[2017-12-20] VITALS (7 sets, daily range): BP systolic 133–177; BP diastolic 76–97; PULSE 66–77; TEMP 36.5–36.8; O2SAT 94–97; Ht 165.1 cm; Wt 76.7 kg
[2017-12-20] MEDS ORDERED: ALUMINUM/MAGNESIUM/SIMETH (MAALOX MAX) 30 ML UDC PO PRN (01:00)
[2017-12-20] MEDS ORDERED: LISINOPRIL 5 MG TAB PO ONE (01:00)
[2017-12-20] MEDS ORDERED: POLYETHYLENE (MIRALAX) 17 GM PACK PO PRN (01:00)
[2017-12-20] MEDS ORDERED: PROMETHAZINE HCL INJ 12.5 MG in SODIUM CHLORIDE 0.9% 50ML 50 ML IV PRN (01:00)
[2017-12-20] MEDS ORDERED: ONDANSETRON INJ 2 MG/ML 2 ML VIAL IV PRN (01:00)
[2017-12-20] MEDS ORDERED: ACETAMINOPHEN 500 MG TAB PO PRN (01:00)
[2017-12-20] MEDS ORDERED: DOCUSATE SODIUM/SENNA 50/8.6MG TAB PO PRN (01:00)
[2017-12-20] MEDS ORDERED: LORAZEPAM 0.5 MG TAB PO PRN (01:00)
[2017-12-20] MEDS ORDERED: ONDANSETRON 4 MG TAB PO PRN (01:00)
[2017-12-20] MEDS ORDERED: NON-FORMULARY MEDICATION (Polyethylene Glycol 3350 (Miralax) 17 GM) PO PRN (01:00)
[2017-12-20] MEDS ORDERED: LABETALOL HCL IV 5 MG/ML 20ML IV PRN (01:00)
[2017-12-20] MEDS ORDERED: ACETAMINOPHEN 325 MG TAB PO PRN (01:00)
[2017-12-20] MEDS ORDERED: PROMETHAZINE HCL INJ 12.5 MG in SODIUM CHLORIDE 0.9% 50ML 50 ML IV ONE (01:15)
[2017-12-20] MEDS ORDERED: ACETAMINOPHEN 500 MG TAB PO ONE (01:15)
[2017-12-20] MEDS: SODIUM CHLORIDE 0.9% 1000ML 1,000 ML IV SCH ×2 (02:20→20:56)
[2017-12-20 05:23] LABS: BASO % 0.2 %; BASO ABS # 0.02 K/uL (0-0.2); EOS % 0.1 %; EOS ABS # 0.01 K/uL (0-0.5); HEMATOCRIT 40.1 % (37-47); HEMOGLOBIN 13.8 g/dL (12.0-16.0); IG# 0.03 K/uL (0.00-0.02); LYMPH % 15.3 %; LYMPH ABS # 1.57 K/uL (1.2-3.4); MEAN CELL VOLUME 89.1 fL (80-100); MEAN CORPUSCULAR HEMOGLOBIN 30.7 pg (25-34); MEAN CORPUSCULAR HGB CONC 34.4 g/dl (32-36); MEAN PLATELET VOLUME 10.5 fL (7.4-10.4); MONO % 4.9 %; NEUT % 79.2 %; PLATELET COUNT 309 K/uL (130-400); RED CELL DISTRIBUTION WIDTH CV 14.2 % (11.5-14.5); RED CELL DISTRIBUTION WIDTH SD 46.5 fL (36.4-46.3); WHITE BLOOD COUNT 10.23 K/uL (4.8-10.8)
--- NOTE | 2017-12-20 05:40 | HISTORY & PHYSICAL EXAMINATION ---
DATE OF ADMISSION: 12/20/2017 CHIEF COMPLAINT: Headache and hypertensive urgency/emergency. HISTORY OF PRESENT ILLNESS: This is a 72-year-old female who was recently diagnosed with hypertension and is on lisinopril, possible TIA, anxiety, hyperlipidemia but not tolerating statins in the past, history of takotsubo cardiomyopathy in 2009, which has resolved, obesity, lactose intolerance, was recently in the hospital on 12/18/2017 and discharged on 12/19/2017. She was in the hospital for stroke-like symptoms and hypertensive urgency/emergency. Workup for stroke was unremarkable. Was seen by cardiology, neurology, and advised aspirin and Plavix for 3 months and to continue aspirin, and cardiology recommended to start low dose statin as she could not tolerate high dose statin in the past, but patient declined, and patient was supposed to follow with PP regarding restarting statin statin. patient was discharged to [facility]. At [facility], patient began to have same symptoms of severe headaches, and she was very nauseous and vomiting several times, and EMS was called and brought to the hospital. In the EMS ambulance, patient's blood pressure was high in 220s. In the ER, she was given a dose of labetalol, and symptoms started to improve. Initially, the headache was 10/10 in severity and currently 7/10 in severity, still nauseous, and somewhat having photophobia. Denies any shortness of breath, denies cough, no fevers, no chest pain, no abdominal pain. Normal bowel and bladder movements. ALLERGIES: MORPHINE, NITROGLYCERIN, PENICILLIN, STATINS. PAST MEDICAL HISTORY: As mentioned above. PAST SURGICAL HISTORY: Cataract surgery, EGD. FAMILY HISTORY: Significant for father having heart distress. SOCIAL HISTORY: about 10 days ago. Lives with herself but discharged to [facility] from last admission. No smoking history. No alcohol, no drug use. REVIEW OF SYMPTOMS: As per HPI. Rest of the review of symptoms negative. MEDICATIONS: Patient is on aspirin 81 mg p.o. daily, Plavix 75 mg p.o. daily, Ativan 0.5 mg p.o. t.i.d. p.r.n., lisinopril 10 mg p.o. daily, Tylenol 500 mg p.o. q.4 h. p.r.n., Colace 100 mg p.o. b.i.d., multivitamin with minerals 1 tablet daily, Zofran 4 mg p.o. q.8 h. p.r.n., MiraLax 17 g p.o. daily p.r.n., Senokot S 1 tablet daily p.r.n. PHYSICAL EXAMINATION: GENERAL: Patient is alert, awake, not in distress. VITAL SIGNS: Temperature is 36.4, pulse 89, respiratory rate 18, blood pressure 224/81 on presentation, oxygen saturation 96% on room air. HEENT: No pallor, no icterus. Pupils equal, round, and reactive to light. NECK: No JVD, no neck masses, no carotid bruits. CARDIOVASCULAR SYSTEM: S1 and S2 heard, regular rate and rhythm, no murmur, no gallop. RESPIRATORY SYSTEM: Clear to auscultation bilaterally. No wheezing. No crackles. ABDOMEN: Soft, bowel sounds present, nontender, no distention. CENTRAL NERVOUS SYSTEM: Cranial nerves II through XII grossly intact. Nonfocal. EXTREMITIES: No edema, no erythema. LABORATORY DATA: WBC 12, hemoglobin 15, hematocrit 43.6, platelets 331. Sodium 135, potassium 3.7, chloride 100, bicarbonate 25, BUN 18, creatinine 0.7, serum glucose 149, calcium 9.1, phosphorus 2.1, magnesium 2.3, total bilirubin 0.4, direct bilirubin 0.1, AST 425, ALT 30, alkaline phosphatase 89. Troponin I less than 0.015. BNP 54. TSH 3.09. PT 9.7, INR 0.9, APTT 27.9. IMAGING: Chest x-ray: No acute findings seen. CT of the head: No acute intracranial findings seen. EKG: Normal sinus rhythm, rate of 83, left anterior fascicular block, no acute ST changes seen. ASSESSMENT AND PLAN: This is a 72-year-old female who presents with hypertensive urgency/emergency. 1. Hypertensive urgency/emergency with headache and nausea, improving with the blood pressure improvement. She was recently in the hospital for similar complaints. At that time also had stroke-like symptoms, workup was unremarkable, possible transient ischemic attack at that time, and discharged on aspirin, Plavix, and lisinopril. Will increase lisinopril to [address] her on IV labetalol p.r.n. and closely monitor on tele floor. May need to adjust her blood pressure medications. Renal arterial ultrasound done in last admission was unremarkable. We will consider adding Coreg or Toprol-XL. if Blood pressure is still high on lisinopril. 2. History of nonobstructive coronary artery disease, on aspirin and Plavix, may need to add beta lizy. Patient did not tolerate high dose statin as outpatient. Patient declined low dose statin in last admission and wanted to follow as an outpatient with the family doctor. 3. History of takotsubo cardiomyopathy in 2009, resolved. Last admission echo was okay. 4. Possible transient ischemic attack in last admission, on aspirin and Plavix, declined statin. 5. Anxiety. Ativan p.r.n. 6. Deep venous thrombosis. Sequential compression devices for now. 7. Disposition: Admit to tele floor. Expect to discharge back to [facility] when stable. Level 1 full code. MTDD
[2017-12-20 05:47] LABS: BLOOD UREA NITROGEN 14 mg/dl (7-18); CALCIUM 8.5 mg/dl (8.5-10.1); CARBON DIOXIDE 24 mmol/L (21-32); CREATININE 0.69 mg/dl (0.60-1.20); GLUCOSE 114 mg/dl (70-99); POTASSIUM 4.2 mmol/L (3.5-5.1); SODIUM 136 mmol/L (136-145)
[2017-12-20] MEDS: LISINOPRIL 20 MG TAB PO SCH (10:40)
[2017-12-20] MEDS: CLOPIDOGREL BISULFATE 75 MG TAB PO SCH (10:40)
[2017-12-20] MEDS: ASPIRIN 81 MG ECTAB PO SCH (10:40)
[2017-12-20] MEDS: CEROVITE ADV FORMULA TAB PO SCH (10:40)
[2017-12-20] MEDS: DOCUSATE SODIUM 100 MG CAP PO SCH ×2 (10:41→21:01)
--- NOTE | 2017-12-20 12:24 | Psychiatric Consultation ---
Consultation Date of Consultation Dec 20, 2017. Identifying Data 72 [facility]. 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 Consult is for anxiety and bereavement as from colon CA complications 10 days ago. Patient states that they were but remarried in 2004 solely so that she could assist him with care. She has a history of some anxiety impacting her medical treatment and related a hx of Takotsubo cardiomyopathy and/or TIA like symptoms in the past but always preferring "natural remedies" vs. psychiatric medication. She has taken Ativan prn 0.25-0.5 mg on 2 occasions and did not like it and would like it to be discontinued. She is now willing to take the prescribed/recommended medications for her BP. Only mental health history is brief course of therapy around [address] Danica Hurst at [facility]. Past Psychiatric History Prior OP Treatment: therapist Prior Psych Hospitalizations: none Access to a Gun: No Suicide Attempts: No Past Medication Trials none Allergies Allergies: Coded Allergies: Morphine (Verified Allergy, Unknown, RASH, 12/19/17) Penicillins (Verified Allergy, Unknown, SWELLING, 12/19/17) Nitroglycerin (Verified Adverse Reaction, Unknown, DIZZY, 12/19/17) Statins (Verified Adverse Reaction, Unknown, GI SYMPTOMS, 12/19/17) Home Medications Scheduled Aspirin (Aspirin Ec), 81 MG PO DAILY Clopidogrel (Plavix), 75 MG PO DAILY Docusate Sodium (Docusate Sodium), 1 CAP PO BID Lisinopril (Prinivil), 10 MG PO DAILY Multivitamins/Minerals (Mvi With Minerals), 1 TAB PO DAILY Scheduled PRN Acetaminophen (Tylenol), 500 MG PO Q4 PRN for Pain or Fever Lorazepam (Ativan), 0.5 MG PO TID PRN for Anxiety Ondansetron Hcl (Zofran), 4 MG PO Q8 PRN for Nausea Polyethylene Glycol 3350 (Miralax), 17 GM PO DAILY PRN for Constipation Senna/Docusate Sod (Senokot S), 1 TAB PO DAILY PRN for Constipation Family History FH: heart disease History of Suicide: No Alcohol Use Alcohol Use In Past 12 Months: No Smoking Use Smoking Status: Former Smoker Substance History denied Personal History Education: advanced degree (PhD in education administration) 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[employer] [facility] Relationship History: Children: 2 sons Legal History: none Review of Systems unable to obtain Examination Vital Signs Vital Signs Past 12 Hours Date Time Temp Pulse Resp B/P (MAP) Pulse Ox O2 Delivery O2 Flow Rate FiO2 12/20/17 11:15 36.5 66 20 154/80 (104) 94 Room Air 12/20/17 09:00 36.8 70 20 136/83 (100) 96 Room Air 12/20/17 08:00 Room Air 12/20/17 04:04 36.6 77 18 154/80 (104) 97 Room Air 12/20/17 03:00 Room Air 12/20/17 02:00 36.7 76 20 177/97 95 Room Air 12/20/17 01:52 82 20 170/87 94 12/20/17 01:20 75 16 12/20/17 01:15 162/78 12/20/17 01:05 75 15 95 Room Air 12/20/17 01:00 177/86 12/20/17 00:50 79 15 97 Room Air 12/20/17 00:45 176/85 12/20/17 00:40 75 14 96 Room Air 12/20/17 00:30 171/86 12/20/17 00:25 70 16 96 Room Air Laboratory Results Last 24 Hours Test 12/19/17 21:57 12/20/17 02:15 12/20/17 05:08 White Blood Count 12.26 K/uL 10.23 K/uL Red Blood Count 4.91 M/uL 4.50 M/uL Hemoglobin 15.0 g/dL 13.8 g/dL Hematocrit 43.6 % 40.1 % Mean Corpuscular Volume 88.8 fL 89.1 fL Mean Corpuscular Hemoglobin 30.5 pg 30.7 pg Mean Corpuscular Hemoglobin Concent 34.4 g/dl 34.4 g/dl Platelet Count 331 K/uL 309 K/uL Mean Platelet Volume 10.7 fL 10.5 fL Neutrophils (%) (Auto) 75.9 % 79.2 % Lymphocytes (%) (Auto) 17.9 % 15.3 % Monocytes (%) (Auto) 4.9 % 4.9 % Eosinophils (%) (Auto) 0.5 % 0.1 % Basophils (%) (Auto) 0.4 % 0.2 % Neutrophils # (Auto) 9.30 K/uL 8.10 K/uL Lymphocytes # (Auto) 2.20 K/uL 1.57 K/uL Monocytes # (Auto) 0.60 K/uL 0.50 K/uL Eosinophils # (Auto) 0.06 K/uL 0.01 K/uL Basophils # (Auto) 0.05 K/uL 0.02 K/uL RDW Standard Deviation 46.4 fL 46.5 fL RDW Coefficient of Variation 14.2 % 14.2 % Immature Granulocyte % (Auto) 0.4 % 0.3 % Immature Granulocyte # (Auto) 0.05 K/uL 0.03 K/uL Prothrombin Time 9.7 SECONDS Prothromb Time International Ratio 0.9 Activated Partial Thromboplast Time 27.9 SECONDS Partial Thromboplastin Ratio 1.1 Sodium Level 135 mmol/L 136 mmol/L Potassium Level 3.7 mmol/L 4.2 mmol/L Chloride Level 100 mmol/L 104 mmol/L Carbon Dioxide Level 25 mmol/L 24 mmol/L Anion Gap 10.0 mmol/L 8.0 mmol/L Blood Urea Nitrogen 18 mg/dl 14 mg/dl Creatinine 0.77 mg/dl 0.69 mg/dl Est Creatinine Clear Calc Drug Dose 61.1 ml/min 73.4 ml/min Estimated GFR () 88.2 99.4 Estimated GFR (Non- 76.1 85.8 BUN/Creatinine Ratio 22.9 20.5 Random Glucose 149 mg/dl 114 mg/dl Calcium Level 9.1 mg/dl 8.5 mg/dl Phosphorus Level 2.1 mg/dl Magnesium Level 2.3 mg/dl 2.1 mg/dl Total Bilirubin 0.4 mg/dl Direct Bilirubin 0.1 mg/dl Aspartate Amino Transf (AST/SGOT) 25 U/L Alanine Aminotransferase (ALT/SGPT) 30 U/L Alkaline Phosphatase 89 U/L Troponin I < 0.015 ng/ml < 0.015 ng/ml Pro-B-Type Natriuretic Peptide 54 pg/ml Total Protein 9.7 gm/dl Albumin 4.0 gm/dl Thyroid Stimulating Hormone (TSH) 3.090 uIu/ml Urine Color YELLOW Urine Appearance TURBID Urine pH 8.5 Urine Specific [place] 1.016 Urine Protein 2+ Urine Glucose (UA) NEG Urine Ketones TRACE Urine Occult Blood NEG Urine Nitrite NEG Urine Bilirubin NEG Urine Urobilinogen NEG Urine Leukocyte Esterase NEG Urine WBC (Auto) 1-5 /hpf Urine RBC (Auto) 0-4 /hpf Urine Hyaline Casts (Auto) 1-5 /lpf Urine Epithelial Cells (Auto) >30 /lpf Urine Bacteria (Auto) NEG Mental Examination deferred as patient sleeping at this time, screened by liaison Mariaa and clearly denies SI and no confusion/psychosis. Impression / Recommendations Impression 72 yo female with adjustment issues to living with son, caring for ailing . Anxiety has caused stressed induced medical conditions in past. didn' t like rehab (food/roommate). Now taking BP medication more seriously. Recommendations limited consult is likely all that is necessary, leaving recs as it's the weekend patient is agreeable to an outpatient therapy referral and liaison is assisting d/c Ativan as patient preference and given fall risk in elderly it is my understanding that patient is not interested in regular psychiatric medication but Buspar 2.5 mg BID-TID and titrate may be better tolerated if needs in near future
--- NOTE | 2017-12-20 12:28 | Progress Note ---
Progress Note Date of Service Dec 20, 2017. Progress Note Subjective: Patient seen and examined at bedside. At present patient denies any symptoms. No headache. No chest pain. No shortness of breath. No gastrointestinal symptoms. Patient clarified that yesterday she was discharged from the hospital and went back to pickle maker things from her house before going to [facility] and then subsequently had some food that at [facility] that did not agree with her gastrointestinally. Subsequently patient had vomiting then headache and her blood pressure was elevated. Her blood pressure became very elevated concurrently. She denied of heaving any neurological symptoms of weakness or chest pain symtoms during that time but she was felt as if she was experiencing Takotsubo symptoms in the past without chest discomfort. When further speaking with the patient about the context of Takotsubo in the past, patient reports that maybe she felt unusual emotions when returning home and recently her and not being there. Physical Exam as performed earlier this morning GENERAL: not in distress. HEENT: EOMI NECK: No JVD, no neck masses, no carotid bruits. CARDIOVASCULAR SYSTEM: S1 and S2 heard, regular rate and rhythm, no murmur,no gallop. RESPIRATORY SYSTEM: Clear to auscultation bilaterally. No wheezing. No crackles. ABDOMEN: Soft, bowel sounds present, nontender, no distention. CENTRAL NERVOUS SYSTEM: Cranial nerves II through XII grossly intact. Nonfocal. EXTREMITIES: No edema, no erythema. ASSESSMENT AND PLAN: Hypertensive urgency/emergency with headache and nausea, resolved after blood pressure controlled -on discharge on day of 12/19/17 blood pressure was controlled on lisinopril 10 mg daily -continue lisinopril 20 mg daily and Labetalol IV prn -previous admission did not find evidence for renal artery stenosis -send 24 catecholamine to rule out pheochromocytoma -continue to monitor on telemetry Previous admission diagnosed with Probable Transient Ischemic Attack -no focal neurological symptoms for this hospital re-admission -continue aspirin and plavix -patient declined to take statin from last admission but appears more agreeable to take statin now after again having elevated blood pressure for this hospital readmission History of nonobstructive coronary artery disease History of takotsubo cardiomyopathy in 2009, resolved normal Ejection Fraction on last admission History of anxiety Bereavement with recent of her History of presumed stress induced takotsubo cardiomyopathy in the past -Psychiatry service asked to evaluate Deep venous thrombosis. Sequential compression devices for now
[2017-12-20] MEDS ORDERED: ATORVASTATIN 10 MG TAB PO ONE (12:45)
[2017-12-21 03:48] VITALS: BP 129/70; PULSE 52; TEMP 36.7; O2SAT 94
[2017-12-21 07:04] VITALS: BP 127/78; PULSE 62; TEMP 36.7; O2SAT 96
[2017-12-21 07:11] LABS: BASO ABS # 0.09 K/uL (0-0.2); EOS % 4.1 %; EOS ABS # 0.36 K/uL (0-0.5); HEMOGLOBIN 13.7 g/dL (12.0-16.0); IG# 0.03 K/uL (0.00-0.02); LYMPH % 39.6 %; LYMPH ABS # 3.46 K/uL (1.2-3.4); MEAN CELL VOLUME 89.7 fL (80-100); MEAN CORPUSCULAR HGB CONC 33.4 g/dl (32-36); MEAN PLATELET VOLUME 10.6 fL (7.4-10.4); MONO ABS # 0.61 K/uL (0.11-0.59); NEUT ABS # 4.18 K/uL (1.4-6.5); PLATELET COUNT 305 K/uL (130-400); RED CELL DISTRIBUTION WIDTH CV 14.5 % (11.5-14.5); RED CELL DISTRIBUTION WIDTH SD 47.9 fL (36.4-46.3); WHITE BLOOD COUNT 8.73 K/uL (4.8-10.8)
[2017-12-21 07:36] LABS: CALCIUM 9.2 mg/dl (8.5-10.1); CREATININE 0.65 mg/dl (0.60-1.20); POTASSIUM 4.1 mmol/L (3.5-5.1)
[2017-12-21] MEDS: ASPIRIN 81 MG ECTAB PO SCH (08:07)
[2017-12-21] MEDS: LISINOPRIL 20 MG TAB PO SCH (08:08)
[2017-12-21] MEDS: CLOPIDOGREL BISULFATE 75 MG TAB PO SCH (08:08)
[2017-12-21] MEDS: CEROVITE ADV FORMULA TAB PO SCH (08:08)
[2017-12-21] MEDS: DOCUSATE SODIUM 100 MG CAP PO SCH (08:08)
[2017-12-21] MEDS ORDERED: ATORVASTATIN 10 MG TAB PO SCH (09:00)
[2017-12-21] MEDS ORDERED: LPT10 PO ×2 (09:38)
[2017-12-21] MEDS ORDERED: LISI-726 PO ×2 (09:38)
--- NOTE | 2017-12-21 09:55 | Progress Note ---
Internal Med Progress Note Date of Service: Dec 21, 2017. Provider Documentation: Subjective: Patient denies headache. Denies dizziness. Denies chest pain or shortness of breath. This morning patient ambulate with walker with assistance of nurse next to her to use the bathroom. Patient denies abdominal pain Physical Exam GENERAL: not in distress. HEENT: no facial droop, EOMI, fluent speech NECK: No JVD, no neck masses, no carotid bruits. CARDIOVASCULAR SYSTEM: S1 and S2 heard, regular rate and rhythm, no murmur,no gallop. RESPIRATORY SYSTEM: Clear to auscultation bilaterally. No wheezing. No crackles. ABDOMEN: Soft, bowel sounds present, nontender, no distention. CENTRAL NERVOUS SYSTEM: awake and alert, verbal. EXTREMITIES: No edema, no erythema. ASSESSMENT & PLAN: Hospital Course and Discharge Plan: Previous admission diagnosed with Probable Transient Ischemic Attack for which patient was previously discharged on 12/19/17 -no focal neurological symptoms for this hospital re-admission -continue aspirin and plavix -patient declined to take statin from last admission but appears more agreeable to take statin now after again having elevated blood pressure for this hospital readmission; will at this time plan to discharge with lose dose atorvastatin as 10 mg daily and for titrating up as tolerated by primary care doctor Hypertensive urgency/emergency with headache and nausea, resolved after blood pressure controlled -on discharge from previous admission during the daytime of 12/19/17, the blood pressure was controlled on lisinopril 10 mg daily -however she returned from [facility] with headache and elevated blood pressure after gastrointestinal symptoms vs emotional stress -No acute intracranial findings on re-admission Head CT on 12/19/17 -continue lisinopril 20 mg daily with blood pressure controlled, plan to discharge with 20 mg lisinopril daily -previous admission did not find evidence for renal artery stenosis -24 hour urine being collected for catecholamine/creatinine to assess whether there are risks of catecholamine surges vs pheochromocytoma. 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 Patient also recommended to start Buspar 2.5 mg BID or TID and titrate up but she declines any Buspar at this time Disposition: Can be discharged to [facility] Discharge Instructions Please take aspirin and clopidogrel daily for 3 months and then only aspirin daily. Monitor for bleeding while on these medications Please take lisinopril daily Please re-discuss with primary care doctor for atorvastatin dosing 12/24/2017 1:00 PM Zach Cloud MD General Internal Medicine [facility] (Primary care doctor can set up outpatient cardiac monitoring) 01/05/2018 1:[address] Gimenez Neurology at Address: [address] [place] [address] [place] [address] Other appointments 02/02/2018 3:30 PM Anjelica Madrigal MD Urology, [facility] 02/04/2018 8:50 AM [id number] [facility] Radiology [facility] please follow up with [facility] cardiology service as needed and outpatient behavioral health/psychiatry resources Vital Signs: Date Time Temp Pulse Resp B/P (MAP) Pulse Ox O2 Delivery O2 Flow Rate FiO2 12/21/17 10:56 36.6 73 18 136/80 (98) 96 Room Air 12/21/17 08:00 Room Air 12/21/17 07:04 36.7 62 17 127/78 (94) 96 Room Air 12/21/17 03:48 36.7 52 16 129/70 (89) 94 Room Air 12/20/17 23:08 36.6 68 16 136/83 (100) 97 Room Air 12/20/17 20:00 Room Air 12/20/17 19:46 36.8 69 16 133/76 (95) 94 Room Air 12/20/17 15:16 36.7 71 18 155/81 (105) 94 Room Air Lab Results: Results Past 24 Hours Test 12/21/17 06:46 12/21/17 11:00 Range/Units White Blood Count 8.73 4.8-10.8 K/uL Red Blood Count 4.57 4.2-5.4 M/uL Hemoglobin 13.7 12.0-16.0 g/dL Hematocrit 41.0 37-47 % Mean Corpuscular Volume 89.7 80-100 fL Mean Corpuscular Hemoglobin 30.0 25-34 pg Mean Corpuscular Hemoglobin Concent 33.4 32-36 g/dl Platelet Count 305 130-400 K/uL Mean Platelet Volume 10.6 7.4-10.4 fL Neutrophils (%) (Auto) 48.0 % Lymphocytes (%) (Auto) 39.6 % Monocytes (%) (Auto) 7.0 % Eosinophils (%) (Auto) 4.1 % Basophils (%) (Auto) 1.0 % Neutrophils # (Auto) 4.18 1.4-6.5 K/uL Lymphocytes # (Auto) 3.46 1.2-3.4 K/uL Monocytes # (Auto) 0.61 0.11-0.59 K/uL Eosinophils # (Auto) 0.36 0-0.5 K/uL Basophils # (Auto) 0.09 0-0.2 K/uL RDW Standard Deviation 47.9 36.4-46.3 fL RDW Coefficient of Variation 14.5 11.5-14.5 % Immature Granulocyte % (Auto) 0.3 % Immature Granulocyte # (Auto) 0.03 0.00-0.02 K/uL Sodium Level 139 136-145 mmol/L Potassium Level 4.1 3.5-5.1 mmol/L Chloride Level 106 98-107 mmol/L Carbon Dioxide Level 26 21-32 mmol/L Anion Gap 8.0 3-11 mmol/L Blood Urea Nitrogen 12 7-18 mg/dl Creatinine 0.65 0.60-1.20 mg/dl Est Creatinine Clear Calc Drug Dose 77.8 ml/min Estimated GFR () 101.4 Estimated GFR (Non- 87.5 BUN/Creatinine Ratio 18.9 10-20 Random Glucose 88 70-99 mg/dl Calcium Level 9.2 8.5-10.1 mg/dl Magnesium Level 2.3 1.8-2.4 mg/dl
[2017-12-21 10:56] VITALS: BP 136/80; PULSE 73; TEMP 36.6; O2SAT 96
--- NOTE | 2017-12-21 12:01 | Discharge Instructions ---
Discharge Instructions Date of Service Dec 21, 2017. Admission Reason for Admission: Headache, Hypertensive Emergency Discharge Discharge Diagnosis / Problem: hypertensiver urgency with headaches, hypertension Discharge Goals Goal(s): Improve disease control Activity Recommendations Activity Limitations: per Instructions/Follow-up section . Instructions / Follow-Up Instructions / Follow-Up Hospital Course and Discharge Plan: Previous admission diagnosed with Probable Transient Ischemic Attack for which patient was previously discharged on 12/19/17 -no focal neurological symptoms for this hospital re-admission -continue aspirin and plavix -patient declined to take statin from last admission but appears more agreeable to take statin now after again having elevated blood pressure for this hospital readmission; will at this time plan to discharge with lose dose atorvastatin as 10 mg daily and for titrating up as tolerated by primary care doctor Hypertensive urgency/emergency with headache and nausea, resolved after blood pressure controlled -on discharge from previous admission during the daytime of 12/19/17, the blood pressure was controlled on lisinopril 10 mg daily -however she returned from [facility] with headache and elevated blood pressure after gastrointestinal symptoms vs emotional stress -No acute intracranial findings on re-admission Head CT on 12/19/17 -continue lisinopril 20 mg daily with blood pressure controlled, plan to discharge with 20 mg lisinopril daily -previous admission did not find evidence for renal artery stenosis -24 hour urine being collected for catecholamine/creatinine to assess whether there are risks of catecholamine surges vs pheochromocytoma. 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 Patient also recommended to start Buspar 2.5 mg BID or TID and titrate up but she declines any Buspar at this time Disposition: Can be discharged to [facility] Discharge Instructions Please take aspirin and clopidogrel daily for 3 months and then only aspirin daily. Monitor for bleeding while on these medications Please take lisinopril daily Please re-discuss with primary care doctor for atorvastatin dosing 12/24/2017 1:00 PM Zach Cloud MD General Internal Medicine [facility] (Primary care doctor can set up outpatient cardiac monitoring) 01/05/2018 1:[address] Gimenez Neurology at Address: [address], [place] [address] Other appointments 02/02/2018 3:30 PM Anjelica Madrigal MD Urology, [facility] 02/04/2018 8:50 AM [id number] [facility] Radiology [facility] 1st Floor, [place] please follow up with [facility] cardiology service as needed and outpatient behavioral health/psychiatry resources Current Hospital Diet Patient's current hospital diet: AHA Diet (Heart Healthy) Discharge Diet Recommended Diet: AHA Diet (Heart Healthy) Pending Studies Studies pending at discharge: no Laboratory Results 12/21/17 06:46 Red Blood Count 4.57, Mean Corpuscular Volume 89.7, Mean Corpuscular Hemoglobin 30.0, Mean Corpuscular Hemoglobin Concent 33.4, Mean Platelet Volume 10.6, Neutrophils (%) (Auto) 48.0, Lymphocytes (%) (Auto) 39.6, Monocytes (%) (Auto) 7.0, Eosinophils (%) (Auto) 4.1, Basophils (%) (Auto) 1.0, Neutrophils # (Auto) 4.18, Lymphocytes # (Auto) 3.46, Monocytes # (Auto) 0.61, Eosinophils # (Auto) 0.36, Basophils # (Auto) 0.09 12/21/17 06:46 Test 12/19/17 21:57 12/20/17 02:15 12/20/17 05:08 12/21/17 06:46 Prothrombin Time 9.7 SECONDS (9.0-12.0) Prothromb Time International Ratio 0.9 (0.9-1.1) Activated Partial Thromboplast Time 27.9 SECONDS (21.0-31.0) Partial Thromboplastin Ratio 1.1 Phosphorus Level 2.1 mg/dl (2.5-4.9) Total Bilirubin 0.4 mg/dl (0.2-1) Direct Bilirubin 0.1 mg/dl (0-0.2) Aspartate Amino Transf (AST/SGOT) 25 U/L (15-37) Alanine Aminotransferase (ALT/SGPT) 30 U/L (12-78) Alkaline Phosphatase 89 U/L (45-117) Pro-B-Type Natriuretic Peptide 54 pg/ml (0-900) Total Protein 9.7 gm/dl (6.4-8.2) Albumin 4.0 gm/dl (3.4-5.0) Thyroid Stimulating Hormone (TSH) 3.090 uIu/ml (0.300-4.500) Urine Color YELLOW Urine Appearance TURBID (CLEAR) Urine pH 8.5 (4.5-7.5) Urine Specific [place] 1.016 (1.000-1.030) Urine Protein 2+ (NEG) Urine Glucose (UA) NEG (NEG) Urine Ketones TRACE (NEG) Urine Occult Blood NEG (NEG) Urine Nitrite NEG (NEG) Urine Bilirubin NEG (NEG) Urine Urobilinogen NEG (NEG) Urine Leukocyte Esterase NEG (NEG) Urine WBC (Auto) 1-5 /hpf (0-5) Urine RBC (Auto) 0-4 /hpf (0-4) Urine Hyaline Casts (Auto) 1-5 /lpf (0-5) Urine Epithelial Cells (Auto) >30 /lpf (0-5) Urine Bacteria (Auto) NEG (NEG) Troponin I < 0.015 ng/ml (0-0.045) White Blood Count 8.73 K/uL (4.8-10.8) Red Blood Count 4.57 M/uL (4.2-5.4) Hemoglobin 13.7 g/dL (12.0-16.0) Hematocrit 41.0 % (37-47) Mean Corpuscular Volume 89.7 fL (80-100) Mean Corpuscular Hemoglobin 30.0 pg (25-34) Mean Corpuscular Hemoglobin Concent 33.4 g/dl (32-36) Platelet Count 305 K/uL (130-400) Mean Platelet Volume 10.6 fL (7.4-10.4) Neutrophils (%) (Auto) 48.0 % Lymphocytes (%) (Auto) 39.6 % Monocytes (%) (Auto) 7.0 % Eosinophils (%) (Auto) 4.1 % Basophils (%) (Auto) 1.0 % Neutrophils # (Auto) 4.18 K/uL (1.4-6.5) Lymphocytes # (Auto) 3.46 K/uL (1.2-3.4) Monocytes # (Auto) 0.61 K/uL (0.11-0.59) Eosinophils # (Auto) 0.36 K/uL (0-0.5) Basophils # (Auto) 0.09 K/uL (0-0.2) RDW Standard Deviation 47.9 fL (36.4-46.3) RDW Coefficient of Variation 14.5 % (11.5-14.5) Immature Granulocyte % (Auto) 0.3 % Immature Granulocyte # (Auto) 0.03 K/uL (0.00-0.02) Anion Gap 8.0 mmol/L (3-11) Est Creatinine Clear Calc Drug Dose 77.8 ml/min Estimated GFR () 101.4 Estimated GFR (Non- 87.5 BUN/Creatinine Ratio 18.9 (10-20) Calcium Level 9.2 mg/dl (8.5-10.1) Magnesium Level 2.3 mg/dl (1.8-2.4) Test 12/21/17 11:00 Date/Time Source Procedure Growth Status 12/20/17 03:00 Nasal MRSA DNA Surveillance Screen - Final Specimen Negative for MRSA by DNA Probe Complete Hemoglobin A1c Test 12/18/17 06:38 Range/Units Estimated Average Glucose 123 mg/dl Hemoglobin A1c 5.9 H 4.5-5.6 % Lipid Panel Test 12/18/17 06:38 Range/Units Triglycerides Level 127 0-150 mg/dl Cholesterol Level 227 H 0-200 mg/dl HDL Cholesterol 65 mg/dl Cholesterol/HDL Ratio 3.5 LDL Cholesterol, Calculated 137 mg/dl Medical Emergencies . Who to Call and When: Medical Emergencies: If at any time you feel your situation is an emergency, please call 911 immediately. . Non-Emergent Contact Non-Emergency issues call your: Primary Care Provider, Neurologist Call Non-Emergent contact if: you have any medication questions . . "Provider Documentation" section prepared by Rayray Fowler. .
--- NOTE | 2017-12-21 12:02 | Discharge Summary ---
Discharge Summary Date of Service Dec 21, 2017. Discharge Summary Admission Date: Dec 20, 2017 at 01:01 Discharge Date: Dec 21, 2017 Discharge Disposition: Rehab Principal Diagnosis: Hypertensive urgency with headache and nausea, resolved after blood pressure controlled Hypertension Secondary Diagnoses/Problems: Anxiety Medication Reconciliation New Medications: Atorvastatin (Lipitor) 10 Mg Tab 10 MG PO QAM for 30 Days, #30 TAB Lisinopril (Lisinopril) 20 Mg Tab 20 MG PO QAM for 30 Days, #30 TAB Continued Medications: Acetaminophen (Tylenol) 500 Mg Tab 500 MG PO Q4 PRN for Pain or Fever, TAB Aspirin (Aspirin Ec) 81 Mg Tab 81 MG PO DAILY Clopidogrel (Plavix) 75 Mg Tab 75 MG PO DAILY, TAB Docusate Sodium (Docusate Sodium) 100 Mg Cap 1 CAP PO BID, CAP Multivitamins/Minerals (Mvi With Minerals) Tab 1 TAB PO DAILY, TAB Ondansetron Hcl (Zofran) 4 Mg Tab 4 MG PO Q8 PRN for Nausea, TAB Polyethylene Glycol 3350 (Miralax) 1 Pow Pow 17 GM PO DAILY PRN for Constipation, #255 GM Senna/Docusate Sod (Senokot S) 1 Tab Tab 1 TAB PO DAILY PRN for Constipation, TAB Discontinued Medications: Lisinopril (Prinivil) 10 Mg Tab 10 MG PO DAILY, TAB Lorazepam (Ativan) 0.5 Mg Tab 0.5 MG PO TID PRN for Anxiety, TAB Admission Information HPI (per Admitting provider): CHIEF COMPLAINT: Headache and hypertensive urgency/emergency. HISTORY OF PRESENT ILLNESS: This is a 72-year-old female who was recently diagnosed with hypertension and is on lisinopril, possible TIA, anxiety, hyperlipidemia but not tolerating statins in the past, history of takotsubo cardiomyopathy in 2009, which has resolved, obesity, lactose intolerance, was recently in the hospital on 12/18/2017 and discharged on 12/19/2017. She was in the hospital for stroke-like symptoms and hypertensive urgency/emergency. Workup for stroke was unremarkable. Was seen by cardiology, neurology, and advised aspirin and Plavix for 3 months and to continue aspirin, and cardiology recommended to start low dose statin as she could not tolerate high dose statin in the past, but patient declined, and patient was supposed to follow with PP regarding restarting statin statin. patient was discharged to [facility], patient began to have same symptoms of severe headaches, and she was very nauseous and vomiting several times, and EMS was called and brought to the hospital. In the EMS ambulance, patient's blood pressure was high in 220s. In the ER, she was given a dose of labetalol, and symptoms started to improve. Initially, the headache was 10/10 in severity and currently 7/10 in severity, still nauseous, and somewhat having photophobia. Denies any shortness of breath, denies cough, no fevers, no chest pain, no abdominal pain. Normal bowel and bladder movements. ALLERGIES: MORPHINE, NITROGLYCERIN, PENICILLIN, STATINS. PAST MEDICAL HISTORY: As mentioned above. PAST SURGICAL HISTORY: Cataract surgery, EGD. FAMILY HISTORY: Significant for father having heart distress. SOCIAL HISTORY: about 10 days ago. Lives with herself but discharged to [facility] from last admission. No smoking history. No alcohol, no drug use. REVIEW OF SYMPTOMS: As per HPI. Rest of the review of symptoms negative. MEDICATIONS: Patient is on aspirin 81 mg p.o. daily, Plavix 75 mg p.o. daily, Ativan 0.5 mg p.o. t.i.d. p.r.n., lisinopril 10 mg p.o. daily, Tylenol 500 mg p.o. q.4 h. p.r.n., Colace 100 mg p.o. b.i.d., multivitamin with minerals 1 tablet daily, Zofran 4 mg p.o. q.8 h. p.r.n., MiraLax 17 g p.o. daily p.r.n., Senokot S 1 tablet daily p.r.n. Physical Exam (per Admitting): PHYSICAL EXAMINATION: GENERAL: Patient is alert, awake, not in distress. VITAL SIGNS: Temperature is 36.4, pulse 89, respiratory rate 18, blood pressure 224/81 on presentation, oxygen saturation 96% on room air. HEENT: No pallor, no icterus. Pupils equal, round, and reactive to light. NECK: No JVD, no neck masses, no carotid bruits. CARDIOVASCULAR SYSTEM: S1 and S2 heard, regular rate and rhythm, no murmur, no gallop. RESPIRATORY SYSTEM: Clear to auscultation bilaterally. No wheezing. No crackles. ABDOMEN: Soft, bowel sounds present, nontender, no distention. CENTRAL NERVOUS SYSTEM: Cranial nerves II through XII grossly intact. Nonfocal. EXTREMITIES: No edema, no erythema. Hospital Course Hospital Course and Discharge Plan: Previous admission diagnosed with Probable Transient Ischemic Attack for which patient was previously discharged on 12/19/17 -no focal neurological symptoms for this hospital re-admission -continue aspirin and plavix -patient declined to take statin from last admission but appears more agreeable to take statin now after again having elevated blood pressure for this hospital readmission; will at this time plan to discharge with lose dose atorvastatin as 10 mg daily and for titrating up as tolerated by primary care doctor Hypertensive urgency/emergency with headache and nausea, resolved after blood pressure controlled -on discharge from previous admission during the daytime of 12/19/17, the blood pressure was controlled on lisinopril 10 mg daily -however she returned from [facility] with headache and elevated blood pressure after gastrointestinal symptoms vs emotional stress -No acute intracranial findings on re-admission Head CT on 12/19/17 -continue lisinopril 20 mg daily with blood pressure controlled, plan to discharge with 20 mg lisinopril daily -previous admission did not find evidence for renal artery stenosis -24 hour urine being collected for catecholamine/creatinine to assess whether there are risks of catecholamine surges vs pheochromocytoma. 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 Patient also recommended to start Buspar 2.5 mg BID or TID and titrate up but she declines any Buspar at this time Disposition: Can be discharged to [facility] Discharge Instructions Please take aspirin and clopidogrel daily for 3 months and then only aspirin daily. Monitor for bleeding while on these medications Please take lisinopril daily Please re-discuss with primary care doctor for atorvastatin dosing 12/24/2017 1:00 PM Zach Cloud MD General Internal Medicine [facility] (Primary care doctor can set up outpatient cardiac monitoring) 01/05/2018 1:[address] Gimenez Neurology at Address: [address] , [place] [address] Other appointments 02/02/2018 3:30 PM Anjelica Madrigal MD Urology, [facility] 02/04/2018 8:50 AM [email or web address] [facility] Radiology [facility] 1st Floor, [place] please follow up with [facility] cardiology service as needed and outpatient behavioral health/psychiatry resources Total time spent on discharge = 40 minutes This includes examination of the patient, discharge planning, medication reconciliation, and communication with other providers. Discharge Instructions see above
[2017-12-21 12:22] VITALS: BP 136/80; PULSE 73; TEMP 36.6; O2SAT 96
== END 2017-12-21 15:15 | DRG 305 ==
LOC: C.EDC 22:03 → C.2T 12-20 01:01 → ENRESERV 12-20 01:15
PROVIDERS: ADMIT Internal Medicine; ATTEND Hospitalist
DX: I16.1 Hypertensive emergency (principal); I10 Essential (primary) hypertension; J45.909 Unspecified asthma, uncomplicated; J44.9 Chronic obstructive pulmonary disease, unspecified; Z86.73 Personal history of transient ischemic attack (TIA), and cerebral infarction without residual deficits; E78.5 Hyperlipidemia, unspecified; Z82.49 Family history of ischemic heart disease and other diseases of the circulatory system; Z79.82 Long term (current) use of aspirin; Z88.5 Allergy status to narcotic agent; Z88.1 Allergy status to other antibiotic agents; Z88.8 Allergy status to other drugs, medicaments and biological substances; F41.9 Anxiety disorder, unspecified

== ENCOUNTER 2018-07-23 13:10 | Observation (INO) ==
[2018-07-23] MEDS ORDERED: PROMETHAZINE HCL 12.5 MG in SODIUM CHLORIDE 0.9% 50 ML IV STA (14:01)
[2018-07-23 14:08] LABS: Basophils # (auto) 0.06 K/uL (0-0.2); Basophils % (auto) 0.6 %; Eosinophils # (auto) 0.14 K/uL (0-0.5); Eosinophils % (auto) 1.4 %; Hematocrit (blood only) 39.7 % (37-47); Hemoglobin 13.8 g/dL (12.0-16.0); Immature Granulocytes # (auto) 0.02 K/uL (0.00-0.02); Immature Granulocytes % (auto) 0.2 %; Lymphocytes # (auto) 3.58 K/uL (1.2-3.4); Lymphocytes % (auto) 36.9 %; Mean Corpuscular Hgb Conc 34.8 g/dL (32-36); Mean Corpuscular Volume 89.4 fL (80-100); Mean Platelet Volume 10.2 fL (7.4-10.4); Monocytes # (auto) 0.54 K/uL (0.11-0.59); Monocytes % (auto) 5.6 %; Neutrophils # (auto) 5.37 K/uL (1.4-6.5); Neutrophils % (auto) 55.3 %; Platelet Count 304 K/uL (130-400); RDW Coefficient of Variation 13.6 % (11.5-14.5); RDW Standard Deviation 45.2 fL (36.4-46.3); Red Blood Count 4.44 M/uL (4.2-5.4); White Blood Count 9.71 K/uL (4.8-10.8)
[2018-07-23] MEDS ORDERED: PROMETHAZINE 12.5 MG/50.5 ML NSS IV ONE (14:10)
[2018-07-23 14:15] LABS: iSTAT Creatinine 0.7 mg/dl (0.6-1.3); iSTAT Hemoglobin 14.3 g/dl (12.0-16.0); iSTAT Ionized Calcium 1.17 mmol/l (1.12-1.32); iSTAT Potassium 3.6 mEq/L (3.3-5.0)
[2018-07-23] MEDS ORDERED: ALUMINUM/MAGNESIUM SUSP 30 ML UDC PO STA (14:26)
[2018-07-23 14:31] LABS: Alanine Aminotransferase 25 U/L (12-78); Albumin Level 4.2 gm/dl (3.4-5.0); Aspartate Aminotransferase 20 U/L (15-37); BUN Creatinine Ratio 18.4 (10-20); Blood Urea Nitrogen 14 mg/dl (7-18); Calcium 9.8 mg/dl (8.5-10.1); Carbon Dioxide 27 mmol/L (21-32); Chloride 102 mmol/L (98-107); Est GFR (African American) 88.2; Est GFR (Non-African American) 76.1; Glucose 100 mg/dl (70-99); Potassium 3.4 mmol/L (3.5-5.1); Sodium 136 mmol/L (136-145)
[2018-07-23 14:34] LABS: Albumin Globulin Ratio 0.8 (0.9-2); Alkaline Phosphatase 73 U/L (45-117); Bilirubin,Total 0.5 mg/dl (0.2-1); Total Protein 9.2 gm/dl (6.4-8.2)
--- NOTE | 2018-07-23 14:36 | XRay Report ---
XR chest 1V portable HISTORY: Atypical chest pain. COMPARISON: None. FINDINGS: The lungs are clear. Cardiac silhouette remains mildly enlarged. No pleural effusions. No p neumothorax. IMPRESSION: No significant change compared to the prior study. No acute process. Stable mild cardiomegaly. Electronically signed by: Min Durham M.D. 07/23/2018 2:35 PM
[2018-07-23] MEDS ORDERED: ASPIRIN CHEW 324 MG PO STA (15:29)
--- NOTE | 2018-07-23 16:03 | Pre Anesthesia Assessment ---
Date of Service July 23, 2018 Pre Sedation Assessment Vital Signs Temp Pulse Pulse Resp BP BP Pulse Ox 07/23/18 15:25 59 L 16 142/83 H 98 07/23/18 13:54 74 18 165/94 H 98 07/23/18 13:22 36.7 C 90 16 168/93 H 98 Cardiovascular + regular rate Respiratory + respiratory effort normal Pre-Sedation Airway Assessment Smoking Status: Never smoker Hx Sleep Apnea: No Hx Difficult Intubation: No Short, Thick Neck: No Thyromental Distance: > or= 3.5 Finger Breadths Oral Cavity: + WNL Mallampati Class: III ASA: ASA3 Procedure Planning Contraindications for Sedation: none Current Medications Reviewed: Yes Notes The planned sedation has been discussed with the patient. Informed Consent was obtained. I have identified the patient, determined the appropriateness of sedation and have assessed the patient immediately prior to the procedure. All medicine(s) and interventions are by my order.
[2018-07-23] MEDS ORDERED: fentaNYL citrate 100 MCG/2 ML VIAL ONE (16:04)
[2018-07-23] MEDS ORDERED: MIDAZOLAM HCL 1 MG/ML 2ML VIAL ONE (16:05)
[2018-07-23] MEDS ORDERED: HEPARIN SOD (PORCINE) 1000 UNIT/ML 10 ML VIAL ONE (16:05)
--- NOTE | 2018-07-23 16:40 | Post Operative Brief Note ---
Cardiology Brief Post Op Date of Surgery July 23, 2018 Pre & Post Diagnosis Operation Date: 07/23/18 16:00 <No data on this case meets the specified criteria> Procedure Procedure performed through the right radial artery. [employer] [place] system Coronary angiography, left heart catheterization, left ventriculography Nonobstructive disease in left anterior descending Normal right coronary artery Normal left ventricular end-diastolic pressures Medications administered: Fentanyl, Versed, nitroglycerin, nicardipine, heparin Medication Nurse Jose Mack MD Pumping Station Supervisor none Estimated Blood Loss 5 Findings Consistent with Post-Op Diagnosis Complications none Disposition Accompanied Patient To Recovery: No Disposition: PCU Overlapping Procedure I was immediately available: during the entire case.
[2018-07-23] MEDS ORDERED: NITROGLYCERIN SL 0.4 MG/TAB TAB SL PRN (17:11)
[2018-07-23] MEDS ORDERED: POTASSIUM CHLORIDE 10 MEQ TABCR PO STA (17:14)
--- NOTE | 2018-07-23 17:19 | History & Physical Report ---
Date of Service July 23, 2018 Assessment & Plan (1) Chest pain: (2) Vomiting: Pt is 72 y/o F with PMH GERD, HTN, anxiety, HLD, Takotsubo cardiomyopathy in 2009 Hx cardiac cath 2010:10-20% proximal mid LAD stenoses. Mild circumflex stenoses. Minor RCA irregularities. Today Pt presented to ER with c/o N/V. Patient started after going to the gym this morning. She denied any chest pain or shortness of breath or dizziness at that time. In ER initial POC troponin negative. While in ER pt developed CP and had EKG changes with ST elevation anterior, septal leads. 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 Nonobstructive disease in left anterior descending, Normal right coronary artery, Normal left ventricular end-diastolic pressures -Monitor Vitals -Repeat EKG in am -Will trend troponin -Echo -continue aspirin, statin -Nitro prn CP and repeat EKG for CP -Cardiology consult - recommends started carvedilol 3.125mg BID. Pt with hx intolerance to beta blockers in past (3) Takotsubo syndrome: Hx Takotsubo cardiomyopathy in 2009. Hx cardiac cath 2010:10-20% proximal mid LAD stenoses. Mild circumflex stenoses. Minor RCA irregularities. (4) HTN (hypertension): -Continue lisinopril (5) Hyperlipidemia: Lipid panel 03/2018: Total: 252, HDL: 64, LDL: 167, Triglycerides: 104 -continue statin. Pt on low dose secondary to intolerance in past (6) GERD (gastroesophageal reflux disease): -continue PPI DVT Prophylaxis -SCDs Full Code as per discussion with pt Follows with Dr Cloud for routine care Pt was seen with Dr Prado. See addendum History of Present Illness Chief Complaint: Vomiting Primary Care Provider: Zach Cloud MD Pt is 72 y/o F with PMH GERD, HTN, anxiety, HLD, h/o intolerance to statins, possible TIA 11/2017, Takotsubo cardiomyopathy in 2009 presented to ER with c/o nausea and vomiting. Patient states this morning she went to the gym. Reports upon getting off bus started with nausea and dry heaves.Patient presented to ER with vomiting. She denied any chest pain or shortness of breath or dizziness at that time. Denied abdominal pain, fever/chills, diaphoresis, hematemesis, riccardo rrhea, ROBLES, syncope, vision changes, neck pain, palpitations, cough, sore throat, choking, otalgia, rhinorrhea, paresthesias, extremity edema, rashes, urinary symptoms. Pt follows with Dr Dawson- cardiology. Hx cardiac cath 2010:10-20% proximal mid LAD stenoses. Mild circumflex stenoses. Minor RCA irregularities. In ER Initial EKG without acute changes and initial point of care troponin negative. While in ER pt developed CP and was noted to have EKG changes and was taken to [facility]. Allergies Allergy/AdvReac Type Severity Reaction Status Date / Time morphine Allergy Unknown RASH Verified 07/23/18 13:49 Penicillins Allergy Unknown SWELLING Verified 07/23/18 13:49 nitroglycerin AdvReac Unknown DIZZY Verified 07/23/18 13:49 Wqbyqfo-Rdg-Acp Reductase AdvReac Unknown GI SYMPTOMS Verified 07/23/18 13:49 Inhibitor Home Medications Home Medications Medication Instructions Recorded Confirmed Type aspirin 81 mg PO DAILY 07/23/18 07/23/18 History atorvastatin 5 mg PO DAILY 07/23/18 07/23/18 History lisinopril 5 mg PO DAILY 07/23/18 07/23/18 History pantoprazole 40 mg PO DAILY 07/23/18 07/23/18 History Past Med/Surg History Medical History GERD (gastroesophageal reflux disease) (Chronic) Anxiety (Chronic) Asthma (Chronic 01/01/13) CVA (cerebral vascular accident) (Chronic) Cardiac catheterization (Resolved 01/01/13) 2009 HTN (hypertension) (Chronic) Hyperlipidemia (Chronic 01/01/13) Myocardial infarction (Chronic 01/01/13) Takotsubo syndrome (Chronic 01/01/13) Vertigo (Chronic) Surgical History History of cataract surgery (Chronic) Family History Other Heart disease Social History Preferred Language: Frisian Communication Ability: Effective Typewriter Operator Automatic Required: No Beliefs That Will Affect Care: None Current Living Situation: Family Current Living Situation Comment: Lives with Son/POA Other Information That Helps Us Care for You: No Feels Safe at Home: Yes Safety Concerns: Feels Safe At This Time Smoking Status: Never smoker Hx Alcohol Use: No Hx Substance Use: No Review of Systems All systems reviewed & are unremarkable except as noted in HPI & below Physical Exam Vital Signs (Past 24 Hours): Last Vital Signs Temp 36.7 C 07/23/18 13:22 Pulse 59 L 07/23/18 15:25 Resp 16 07/23/18 15:25 BP 142/83 H 07/23/18 15:25 Pulse Ox 98 07/23/18 15:25 Physical Exam: General: mildly anxious appearing, WDWN Head: normocephalic, atraumatic Eyes: PERRL, EOM's intact, conjunctiva non-injected, anicteric ENT: normal inspection external ears, nose, mucous membranes moist Neck: supple, trachea midline Lungs: clear, no respiratory distress, no wheezing/rhonchi/rales CV: RRR, no murmur, no pretibial edema Abd: normal BS, soft, non-tender Ext: no cyanosis, no calf tenderness Neuro: A&O x 3, no focal deficits noted, normal affect Skin: warm, dry Results & Data Laboratory Results Short CBC 07/23/18 Range/Units 13:51 WBC 9.71 (4.8-10.8) K/uL Hgb 13.8 (12.0-16.0) g/dL Hct 39.7 (37-47) % Plt Count 304 (130-400) K/uL BMP 07/23/18 13:51 Sodium 136 Potassium 3.4 L Chloride 102 Carbon Dioxide 27 BUN 14 Creatinine 0.77 Glucose 100 H Calcium 9.8 Liver Function 07/23/18 Range/Units 13:51 Total Bilirubin 0.5 (0.2-1) mg/dl AST 20 (15-37) U/L ALT 25 (12-78) U/L Alkaline Phosphatase 73 (45-117) U/L Albumin 4.2 (3.4-5.0) gm/dl Diagnostic Findings CXR: IMPRESSION: No significant change compared to the prior study. No acute process. Stable mild cardiomegaly. Supervising Physician Co-Signing Physician Notes Pt was seen and examined. Agreed with Kiley SHAHID exam, assessment and plan. 72 y/o F with PMH GERD, HTN, anxiety, HLD, h/o intolerance to statins, possible TIA 11/2017, Takotsubo cardiomyopathy in 2009 presented to ER with c/o nausea and vomiting. While in the ER, pt developed Chest pain and was noted to have EKG changes and was taken to [facility]. Emergent Cardiac catheterization done but was not found to have any acute coronary syndrome. Was starting on carvedilol 3.125 mg BID and continue asa 81, Lisinopril 5 mg and statin. Currently pt denies any chest pain, palpitation, dizziness, and SOB. Will continue monitor in tele. MD Johan
--- NOTE | 2018-07-23 19:29 | Cardiology Consultation ---
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 She has had symptoms of chest pain fairly frequently, none of which have been associated with an acute coronary syndrome. Given the recurrence of symptoms and EKG findings today she was taken urgently to the cardiac catheterization lab but was not found to have any acute coronary syndrome. She had also did not appear to have significant LV dysfunction at this time. Undoubtedly her symptoms and EKG findings are related to emotional stress, likely the fact that today is her 's birthday. At this point treatment will be medical. We will need to maintain good blood pressure control. Analgesics can be used for continued chest discomfort. She should be continued on her outpatient medical regimen which consists of aspirin lisinopril and low-dose atorvastatin. I would also advocate initiation of low- dose beta-blockade with carvedilol 3.125 milligrams twice daily. He had been on beta-blockers previously but discontinued them due to diffuse symptoms of fatigue and exercise intolerance. We will check an echocardiogram tomorrow. If her echocardiogram is normal and there is no evidence of injury based on biomarkers, she could be discharged with outpatient follow-up. However, if there is evidence of injury or myocardial dysfunction a period of observation is likely warranted. History of Present Illness Reason for Consultation: Chest pain, ST elevations Requesting Physician: Jennifer Attending Physician: Jose Mack MD History of Present Illness Patient is a 72-year-old woman with a history of takotsubo cardiomyopathy who was feeling well until after exercise this morning. She states that after her u sual light work out she was exiting the bus used for transportation where she began to experience some gastrointestinal upset. This nausea progressed to severe dry heaves and abdominal discomfort. Based on the symptoms she went to the [facility] Emergency room for evaluation. Upon being escorted to a triage [place] she then began to develop symptoms of chest discomfort. This was precordial in nature in similar in character to symptoms she has had many times in the past. It did not appear to be associated with significant breathing. There was little radiation. There is no sense of palpitation. EKG initially obtained was normal but after development of chest discomfort she had significant changes consistent with an injury pattern. In general she is an active individual was accustomed to mild activity. She does not seem to have discomfort, limiting dyspnea or chest discomfort with exercise. However, she is known to have severe anxiety at times and has had multiple episodes of chest pain believed to be associated with emotional upset and distress. Her approximately 7 months ago. At that time she was admitted for similar symptoms without objective findings of coronary disease. Today happens to be her 's birthday. Allergies Allergy/AdvReac Type Severity Reaction Status Date / Time morphine Allergy Unknown RASH Verified 07/23/18 13:49 Penicillins Allergy Unknown SWELLING Verified 07/23/18 13:49 nitroglycerin AdvReac Unknown DIZZY Verified 07/23/18 13:49 Vrhejzi-Jrz-Rwz Reductase AdvReac Unknown GI SYMPTOMS Verified 07/23/18 13:49 Inhibitor Home Medications Home Medications Medication Instructions Recorded Confirmed Type aspirin 81 mg PO DAILY 07/23/18 07/23/18 History atorvastatin 5 mg PO DAILY 07/23/18 07/23/18 History lisinopril 5 mg PO DAILY 07/23/18 07/23/18 History pantoprazole 40 mg PO DAILY 07/23/18 07/23/18 History Patient History Medical History GERD (gastroesophageal reflux disease) (Chronic) Anxiety (Chronic) Asthma (Chronic 01/01/13) CVA (cerebral vascular accident) (Chronic) Cardiac catheterization (Resolved 01/01/13) 2009 HTN (hypertension) (Chronic) Hyperlipidemia (Chronic 01/01/13) Myocardial infarction (Chronic 01/01/13) Takotsubo syndrome (Chronic 01/01/13) Vertigo (Chronic) Surgical History History of cataract surgery (Chronic) Family History Other Heart disease Social History Feels Safe at Home: Yes Smoking Status: Never smoker Hx Alcohol Use: No Hx Substance Use: No Review of Systems Complete. Pertinent positives known history of present illness. No recent constitutional symptoms such as fevers or chills. No swelling in her lower extremities. She has been upset recently thinking about her . Physical Exam Vital Signs (Past 24 Hours): Last Vital Signs Temp 36.7 C 07/23/18 13:22 Pulse 59 L 07/23/18 15:25 Resp 16 07/23/18 15:25 BP 142/83 H 07/23/18 15:25 Pulse Ox 98 07/23/18 15:25 Physical Exam: She is alert and oriented x3. Mood affect appear normal. She answered all questions appropriately. HEENT: Sclerae are anicteric. Pupils are equal and reactive to light and accommodation. Extraocular movements were intact. Neuro: Cranial nerves intact Neck: Examination of the submandibular region did not reveal any significant lymphadenopathy. Carotids are palpable bilaterally and free of bruits on auscultation. There was no evidence of jugular venous distention. The thyroid was not enlarged. Lungs: Lungs are clear to auscultation bilaterally. There are no rales wheezes or rhonchi. She has normal respiratory effort without use of accessory muscles. There is normal pulmonary excursion. Cardiac: The rhythm was regular. S1 and S2 were normal. There are no murmurs on examination. The PMI was not markedly displaced on palpation. Abdomen: The abdomen was soft and nontender. Extremities: Patient has bilateral radial pulses that are equal in intensity. There is no evidence cyanosis or clubbing. There was no evidence of significant peripheral edema bilaterally. Skin: There are no rashes noted on examination today. Results & Data Laboratory Results Abnormal Lab Results 07/23/18 07/23/18 07/23/18 13:51 13:51 14:02 WBC 9.71 RBC 4.44 Hgb 13.8 POC Hgb 14.3 Hct 39.7 POC Hct 42 MCV 89.4 MCH 31.1 MCHC 34.8 RDW Std Deviation 45.2 RDW Coeff of Carine 13.6 Plt Count 304 MPV 10.2 Immature Gran % (Auto) 0.2 Neut % (Auto) 55.3 Lymph % (Auto) 36.9 [place] % (Auto) 5.6 Eos % (Auto) 1.4 Baso % (Auto) 0.6 Immature Gran # (Auto) 0.02 Neut # (Auto) 5.37 Lymph # (Auto) 3.58 H [place] # (Auto) 0.54 Eos # (Auto) 0.14 Baso # (Auto) 0.06 POC Sodium 138 Sodium 136 POC Potassium 3.6 Potassium 3.4 L POC Chloride 100 L Chloride 102 Carbon Dioxide 27 POC Total CO2 28 Anion Gap 8.0 POC Anion Gap 15.0 L POC BUN 14 BUN 14 Creatinine 0.77 POC Creatinine 0.7 Est Cr Clr Drug Dosing Not Reportable Est GFR ( Amer) 88.2 Est GFR (Non-Af Amer) 76.1 BUN/Creatinine Ratio 18.4 Glucose 100 H POC Glucose (other) 105 H Calcium 9.8 POC Ioniz Calcium Fela 1.17 Total Bilirubin 0.5 AST 20 ALT 25 Alkaline Phosphatase 73 POC Troponin I Total Protein 9.2 H Albumin 4.2 Globulin 5.0 H Albumin/Globulin Ratio 0.8 L 07/23/18 14:03 WBC RBC Hgb POC Hgb Hct POC Hct MCV MCH MCHC RDW Std Deviation RDW Coeff of Carine Plt Count MPV Immature Gran % (Auto) Neut % (Auto) Lymph % (Auto) [place] % (Auto) Eos % (Auto) Baso % (Auto) Immature Gran # (Auto) Neut # (Auto) Lymph # (Auto) [place] # (Auto) Eos # (Auto) Baso # (Auto) POC Sodium Sodium POC Potassium Potassium POC Chloride Chloride Carbon Dioxide POC Total CO2 Anion Gap POC Anion Gap POC BUN BUN Creatinine POC Creatinine Est Cr Clr Drug Dosing Est GFR ( Amer) Est GFR (Non-Af Amer) BUN/Creatinine Ratio Glucose POC Glucose (other) Calcium POC Ioniz Calcium Fela Total Bilirubin AST ALT Alkaline Phosphatase POC Troponin I < 0.03 Total Protein Albumin Globulin Albumin/Globulin Ratio Diagnostic Findings Chest x-ray did not reveal any acute cardiopulmonary process. Coronary angiography revealed approximately 30-40 percent stenosis in the mid LAD. There were no other focal stenosis in any distribution. ECG Additional Comments: Initial EKG demonstrated normal sinus rhythm and was normal. Second EKG demonstrated sinus rhythm with an injury pattern consisting of elevations in the lateral limb leads and V2.
[2018-07-23 19:51] LABS: Appearance Urine Clear (Clear); Bacteria Urine Automated 1+ (Negative); Bilirubin Urine Negative (Negative); Blood Urine Negative (Negative); Color Urine Yellow; Epithelial Cell Urine Auto >30 /lpf (0-5); Glucose Urine UA Negative (Negative); Ketones Urine Trace (Negative); Leukocyte Esterase Urine Negative (Negative); Nitrite Urine Negative (Negative); Protein Urine Trace (Negative); RBC Urine Automated 0-4 /hpf (0-4); Specific Gravity Urine 1.043 (1.000-1.030); Urobilinogen Urine Negative (Negative); pH Urine 5.5 (4.5-7.5)
[2018-07-23] MEDS: CARVEDILOL 3.125 MG TAB PO SCH (19:57)
[2018-07-23] MEDS: ACETAMINOPHEN 325 MG TAB PO PRN (20:44)
--- NOTE | 2018-07-23 23:07 | Emergency Department Note ---
Entered by Mukesh Mustafa acting as a scribe for Chester Rodriguez MD History of Present Illness General Chief complaint: Hypertension Stated complaint: SEVERE VOMITING,HTN Time Seen by Provider: 07/23/18 13:53 History of Present Illness Maximum Pain Intensity: 5 Home Medications Home Medications Medication Instructions Recorded Confirmed Type aspirin 81 mg PO DAILY 07/23/18 07/23/18 History atorvastatin 5 mg PO DAILY 07/23/18 07/23/18 History lisinopril 5 mg PO DAILY 07/23/18 07/23/18 History pantoprazole 40 mg PO DAILY 07/23/18 07/23/18 History Allergies Allergy/AdvReac Type Severity Reaction Status Date / Time morphine Allergy Unknown RASH Verified 07/23/18 13:49 Penicillins Allergy Unknown SWELLING Verified 07/23/18 13:49 nitroglycerin AdvReac Unknown DIZZY Verified 07/23/18 13:49 Otuxhln-Jlk-Vom Reductase AdvReac Unknown GI SYMPTOMS Verified 07/23/18 13:49 Inhibitor Past Med/Surg History Medical History GERD (gastroesophageal reflux disease) (Chronic) Anxiety (Chronic) Asthma (Chronic 01/01/13) CVA (cerebral vascular accident) (Chronic) Cardiac catheterization (Resolved 01/01/13) 2009 HTN (hypertension) (Chronic) Hyperlipidemia (Chronic 01/01/13) Myocardial infarction (Chronic 01/01/13) Takotsubo syndrome (Chronic 01/01/13) Vertigo (Chronic) Surgical History History of cataract surgery (Chronic) Family History Other Heart disease Social History Preferred Language: Kinyarwanda Communication Ability: Effective Men'S Leather Dress Belt Maker Required: No Beliefs That Will Affect Care: None Current Living Situation: Family Current Living Situation Comment: Lives with Son/POA Other Information That Helps Us Care for You: No Feels Safe at Home: Yes Safety Concerns: Feels Safe At This Time Smoking Status: Never smoker Hx Alcohol Use: No Hx Substance Use: No Review of Systems See HPI for pertinent positives & negatives. and A total of 10 systems reviewed and were otherwise negative Physical Exam Vital Signs Vital Signs - 24 hr 07/23/18 13:22 07/23/18 13:54 07/23/18 15:25 Temperature 36.7 C Temperature Source Oral Sepsis Recent Fever Within 48 Hours No Sepsis New/Unexplained Change in Mental Status No Sepsis Action Taken by Nursing No Action Required Pulse Rate 90 Pulse Rate [Finger] 74 59 L Pulse Rhythm [Finger] Regular Pulse Strength [Finger] Normal Respiratory Rate 16 18 16 Respiratory Effort / Characteristics Non-Labored Non-Labored Spontaneous Respiratory Depth Normal Normal Respiratory Pattern Regular Blood Pressure 168/93 H Blood Pressure [Right Arm] 165/94 H 142/83 H Blood Pressure Mean 118 Blood Pressure Mean [Right Arm] 117 102 Blood Pressure Position [Right Arm] Sitting Pulse Oximetry 98 98 98 Oxygen Delivery Method Room Air Room Air Room Air 07/23/18 17:10 07/23/18 17:25 07/23/18 17:55 Temperature 36.6 C Temperature Source Oral Sepsis Recent Fever Within 48 Hours Sepsis New/Unexplained Change in Mental Status Sepsis Action Taken by Nursing Pulse Rate Pulse Rate [Finger] 72 74 81 Pulse Rhythm [Finger] Regular Regular Pulse Strength [Finger] Respiratory Rate 16 16 16 Respiratory Effort / Characteristics Non-Labored Spontaneous Non-Labored Spontaneous Non-Labored Spontaneous Respiratory Depth Normal Normal Normal Respiratory Pattern Regular Regular Regular Blood Pressure Blood Pressure [Right Arm] 110/69 123/79 109/67 Blood Pressure Mean Blood Pressure Mean [Right Arm] 82 93 81 Blood Pressure Position [Right Arm] Lying Lying Lying Pulse Oximetry 95 96 94 Oxygen Delivery Method Room Air Room Air Room Air 07/23/18 18:25 07/23/18 18:55 07/23/18 19:46 Temperature 36.7 C Temperature Source Oral Sepsis Recent Fever Within 48 Hours Sepsis New/Unexplained Change in Mental Status Sepsis Action Taken by Nursing Pulse Rate Pulse Rate [Finger] 87 82 86 Pulse Rhythm [Finger] Regular Regular Regular Pulse Strength [Finger] Normal Respiratory Rate 16 18 18 Respiratory Effort / Characteristics Non-Labored Spontaneous Non-Labored Spontaneous Non-Labored Respiratory Depth Normal Normal Normal Respiratory Pattern Regular Blood Pressure Blood Pressure [Right Arm] 111/68 107/52 L 120/73 Blood Pressure Mean Blood Pressure Mean [Right Arm] 82 70 88 Blood Pressure Position [Right Arm] Lying Lying Lying Pulse Oximetry 96 96 95 Oxygen Delivery Method Room Air Room Air Room Air General: Ill appearing older female in no acute distress, complains of nausea and chest pain, holding emesis bag. HEENT: Normal cephalic atraumatic. Pupils are equal round and reactive to light. Extraocular movements are intact. Oropharynx is pink with moist mucous membranes. No swelling of the mouth lips or tongue. Neck: Supple with a midline trachea. No meningeal signs or stiffness, no JVD or bruits. No Stridor. Chest: Clear to auscultation bilaterally. No wheezes or rhonchi. No increased work of breathing. Heart: regular rate and rhythm. Abdomen: Soft nontender, nondistended without rebound guarding or rigidity. Extremities: No cyanosis clubbing or edema. No calf tenderness or assymetry Spine/Back. Non tender to palpation. No CVA tenderness Skin: Good turgor without rashes. Neurologic exam: Cranial nerves two through 12 are intact. Motor and sensation are intact and symmetrical throughout. Course 1400: Past medical records reviewed. The patient was evaluated in room C2, and a complete history and physical examination were performed. 1425: I reevaluated and updated the patient. She is less nauseous but still has some chest pain. 1504: I rechecked the patient. She looks better. Upon reevaluation, the patient is stable. I discussed the results and treatment plan with the patient. She verbalizes understanding and agreement. I discussed the patient's case with Kiley Duff PA-C, [facility]. 1510: I reevaluated and updated the patient. She is still nauseous. She states that her head is fuzzy. 1549: Dr. Mack, Dr. Mahmood, and Dr. Gonzalez are at bedside and are taking the patient to the orthodontic lab technician. Consultations Consultation #1: I reviewed the patient's case with Kiley Duff PA-C, [facility]. Time: 15:04 Administered Medications Acetaminophen (Tylenol) 650 mg PO Q4H PRN PRN Reason: Pain or Fever Stop: 08/22/18 17:10 Last Admin: 07/23/18 20:44 Dose: 650 mg Documented by: [id number] Carvedilol (Coreg) 3.125 mg PO BID [facility] Stop: 08/22/18 20:59 Last Admin: 07/23/18 19:57 Dose: 3.125 mg Documented by: [id number] Discontinued Medications Al Hydrox/Mg Hydrox/Simethicone (Maalox) 30 ml PO NOW STA Stop: 07/23/18 14:27 Last Admin: 07/23/18 15:34 Dose: Not Given Documented by: [id number] Aspirin (Aspirin) 324 mg PO NOW STA Stop: 07/23/18 15:30 Last Admin: 07/23/18 15:34 Dose: 324 mg Documented by: [id number] Fentanyl Citrate (Fentanyl Citrate) Confirm Administered Dose 100 mcg .ROUTE .STK-MED ONE Stop: 07/23/18 16:05 Last Increment: 07/23/18 16:43 Dose: 25 mcg Documented by: [id number] Heparin Sodium (Porcine) (Heparin Iv Bolus) Confirm Administered Dose 10,000 units .ROUTE .STK-MED ONE Stop: 07/23/18 16:06 Last Admin: 07/23/18 16:43 Dose: 5,000 units Documented by: [id number] Cosigned by: [id number] Heparin Sodium/Sodium Chloride (Heparin/Nss 1000 Unit/500ml Flush Bag) Confirm Administered Dose 3,000 units IV .STK-MED ONE Stop: 07/23/18 16:01 Last Admin: 07/23/18 16:43 Dose: 3,000 units Documented by: [id number] Promethazine HCl 12.5 mg/ (Sodium Chloride) 50.5 mls @ 202 mls/hr IV NOW STA Stop: 07/23/18 14:15 Last Admin: 07/23/18 14:13 Dose: Not Given Documented by: [id number] Midazolam HCl (Versed) Confirm Administered Dose 2 mg .ROUTE .STK-MED ONE Stop: 07/23/18 16:06 Last Increment: 07/23/18 16:44 Dose: 1 mg Documented by: [id number] Potassium Chloride (Klor-Con M10) 20 meq PO NOW STA Stop: 07/23/18 17:15 Last Admin: 07/23/18 19:16 Dose: 20 meq Documented by: [id number] Promethazine HCl (Phenergan) Confirm Administered Dose 12.5 mg IV .STK-MED ONE Stop: 07/23/18 14:11 Last Admin: 07/23/18 14:13 Dose: 12.5 mg Documented by: [id number] Medical Decision Making Differential Diagnosis Differential diagnoses include: acute coronary syndrome, Takotsubo's, CHF, GERD, dissection, and electrolyte/metabolic abnormalities. Medical Records Attestation: I reviewed the patient's medical records. Home Medications Current Medication List: was personally reviewed by me Laboratory Data Attestation: I reviewed the patient's lab results. Result diagrams: 07/23/18 13:51 07/23/18 13:51 Lab Results 07/23/18 07/23/18 07/23/18 Range/Units 13:51 13:51 14:02 WBC 9.71 (4.8-10.8) K/uL RBC 4.44 (4.2-5.4) M/uL Hgb 13.8 (12.0-16.0) g/dL POC Hgb 14.3 (12.0-16.0) g/dl Hct 39.7 (37-47) % POC Hct 42 (37-47) % MCV 89.4 (80-100) fL MCH 31.1 (25-34) pg MCHC 34.8 (32-36) g/dL RDW Std Deviation 45.2 (36.4-46.3) fL RDW Coeff of Carine 13.6 (11.5-14.5) % Plt Count 304 (130-400) K/uL MPV 10.2 (7.4-10.4) fL Immature Gran % (Auto) 0.2 % Neut % (Auto) 55.3 % Lymph % (Auto) 36.9 % Bell % (Auto) 5.6 % Eos % (Auto) 1.4 % Baso % (Auto) 0.6 % Immature Gran # (Auto) 0.02 (0.00-0.02) K/uL Neut # (Auto) 5.37 (1.4-6.5) K/uL Lymph # (Auto) 3.58 H (1.2-3.4) K/uL Bell # (Auto) 0.54 (0.11-0.59) K/uL Eos # (Auto) 0.14 (0-0.5) K/uL Baso # (Auto) 0.06 (0-0.2) K/uL POC Sodium 138 (135-144) mEq/L Sodium 136 (136-145) mmol/L POC Potassium 3.6 (3.3-5.0) mEq/L Potassium 3.4 L (3.5-5.1) mmol/L POC Chloride 100 L (101-112) mEq/L Chloride 102 (98-107) mmol/L Carbon Dioxide 27 (21-32) mmol/L POC Total CO2 28 (24-31) mEq/l Anion Gap 8.0 (3-11) POC Anion Gap 15.0 L (16-25) mmol/L POC BUN 14 (7-18) mg/dl BUN 14 (7-18) mg/dl Creatinine 0.77 (0.6-1.2) mg/dl POC Creatinine 0.7 (0.6-1.3) mg/dl Est Cr Clr Drug Dosing Not Reportable Est GFR ( Amer) 88.2 Est GFR (Non-Af Amer) 76.1 BUN/Creatinine Ratio 18.4 (10-20) Glucose 100 H (70-99) mg/dl POC Glucose (other) 105 H (70-99) mg/dl Calcium 9.8 (8.5-10.1) mg/dl POC Ioniz Calcium Fela 1.17 (1.12-1.32) mmol/l Total Bilirubin 0.5 (0.2-1) mg/dl AST 20 (15-37) U/L ALT 25 (12-78) U/L Alkaline Phosphatase 73 (45-117) U/L POC Troponin I (0-0.045) ng/ml Troponin I (0-0.045) ng/ml Total Protein 9.2 H (6.4-8.2) gm/dl Albumin 4.2 (3.4-5.0) gm/dl Globulin 5.0 H (2.5-4.0) gm/dl Albumin/Globulin Ratio 0.8 L (0.9-2) Urine Color Urine Appearance (Clear) Urine pH (4.5-7.5) Ur Specific [place] (1.000-1.030) Urine Protein (Negative) Urine Glucose (UA) (Negative) Urine Ketones (Negative) Urine Blood (Negative) Urine Nitrite (Negative) Urine Bilirubin (Negative) Urine Urobilinogen (Negative) Ur Leukocyte Esterase (Negative) Urine WBC (Auto) (0-5) /hpf Urine RBC (Auto) (0-4) /hpf U Hyaline Cast (Auto) (0-5) /lpf U Epithel Cells (Auto) (0-5) /lpf Urine Bacteria (Auto) (Negative) 07/23/18 07/23/18 07/23/18 Range/Units 14:03 19:27 20:13 WBC (4.8-10.8) K/uL RBC (4.2-5.4) M/uL Hgb (12.0-16.0) g/dL POC Hgb (12.0-16.0) g/dl Hct (37-47) % POC Hct (37-47) % MCV (80-100) fL MCH (25-34) pg MCHC (32-36) g/dL RDW Std Deviation (36.4-46.3) fL RDW Coeff of Carine (11.5-14.5) % Plt Count (130-400) K/uL MPV (7.4-10.4) fL Immature Gran % (Auto) % Neut % (Auto) % Lymph % (Auto) % Bell % (Auto) % Eos % (Auto) % Baso % (Auto) % Immature Gran # (Auto) (0.00-0.02) K/uL Neut # (Auto) (1.4-6.5) K/uL Lymph # (Auto) (1.2-3.4) K/uL Bell # (Auto) (0.11-0.59) K/uL Eos # (Auto) (0-0.5) K/uL Baso # (Auto) (0-0.2) K/uL POC Sodium (135-144) mEq/L Sodium (136-145) mmol/L POC Potassium (3.3-5.0) mEq/L Potassium (3.5-5.1) mmol/L POC Chloride (101-112) mEq/L Chloride (98-107) mmol/L Carbon Dioxide (21-32) mmol/L POC Total CO2 (24-31) mEq/l Anion Gap (3-11) POC Anion Gap (16-25) mmol/L POC BUN (7-18) mg/dl BUN (7-18) mg/dl Creatinine (0.6-1.2) mg/dl POC Creatinine (0.6-1.3) mg/dl Est Cr Clr Drug Dosing Est GFR ( Amer) Est GFR (Non-Af Amer) BUN/Creatinine Ratio (10-20) Glucose (70-99) mg/dl POC Glucose (other) (70-99) mg/dl Calcium (8.5-10.1) mg/dl POC Ioniz Calcium Fela (1.12-1.32) mmol/l Total Bilirubin (0.2-1) mg/dl AST (15-37) U/L ALT (12-78) U/L Alkaline Phosphatase (45-117) U/L POC Troponin I < 0.03 (0-0.045) ng/ml Troponin I 7.210 H* (0-0.045) ng/ml Total Protein (6.4-8.2) gm/dl Albumin (3.4-5.0) gm/dl Globulin (2.5-4.0) gm/dl Albumin/Globulin Ratio (0.9-2) Urine Color Yellow Urine Appearance Clear (Clear) Urine pH 5.5 (4.5-7.5) Ur Specific [place] 1.043 H (1.000-1.030) Urine Protein Trace H (Negative) Urine Glucose (UA) Negative (Negative) Urine Ketones Trace H (Negative) Urine Blood Negative (Negative) Urine Nitrite Negative (Negative) Urine Bilirubin Negative (Negative) Urine Urobilinogen Negative (Negative) Ur Leukocyte Esterase Negative (Negative) Urine WBC (Auto) 5-10 H (0-5) /hpf Urine RBC (Auto) 0-4 (0-4) /hpf U Hyaline Cast (Auto) 1-5 (0-5) /lpf U Epithel Cells (Auto) >30 H (0-5) /lpf Urine Bacteria (Auto) 1+ H (Negative) Imaging Data Radiologist's Impression: Radiology results as stated below per my review and the radiologist's interpretation: XR chest 1V portable FINDINGS: The lungs are clear. Cardiac silhouette remains mildly enlarged. No pleural effusions. No pneumothorax. IMPRESSION: No significant change compared to the prior study. No acute process. Stable mild cardiomegaly. Electronically signed by: Min Durham M.D. 07/23/2018 2:35 PM ECG Data Attestation: I personally reviewed and interpreted this ECG as follows: Indication: chest pain Rate (beats per minute): 85 Rhythm: normal sinus Findings: + PVC (occasional PVC); no ST depression and no left axis deviation Comparison ECG Date: from (12/20/2017) Change: no significant change Additional Comments: LVH present. EKG #2: NS, 62, ST segment elevation in 1, AVL, and V2, reciprocal changes in 3 and AVF, significant change compared to EKG #1, concerning for TX. Blood Pressure Blood Pressure Findings: Elevated blood pressure Blood Pressure Disposition: further management by hospitalist [facility] Narrative This patient comes in as described above. She was placed as a priority patient so I saw her promptly. When I walked in the room she was holding an emesis bag complain of feeling nauseated and having chest pain. She has had a history of Takotsubo's before and said it felt similar. She says the Phenergan has helped her in the past. She cannot take morphine and nitroglycerin as she has significant side effects. She was given the IV Phenergan and extensive work-up was done from a cardiac standpoint. her initial EKG did not show any acute ischemic changes. She seemed more comfortable but was having chest pain. I ordered a GI cocktail and repeated the EKG, it now shows acute ST segment elevations inferiorly with reciprocal changes. Heart alert was called. I also consulted Dr. Mack who saw her in the ER as did Dr. Gonzalez from interventional cardiology. They are going to take her to the [facility]. It is possible this could be related to her Takotsubo's rather than acute TX. Looking back through her old chart when she had Takotsubo's she had similar EKG changes but this abruptly change in the ER and she is having ongoing chest pain. She was sent emergently to the [facility]. Impression & Plan Acute TX, Takotsubo syndrome Discharge Plan Visit Data Chief Complaint: Hypertension Stated Complaint: SEVERE VOMITING,HTN ED Provider: Chester Rodriguez Discharge Problem: Acute TX, Takotsubo syndrome Patient Disposition: Being Evaluated by Surgeon Discharge Instructions Interventions: ED Discharge Assessment Last Done: 07/23/18 16:11 Discharge Problem: Acute TX Qualifiers: Myocardial infarction type: unspecified Involved coronary artery: unspecified coronary artery Qualified Code(s): I21.9 - Acute myocardial infarction, unspecified The scribe's documentation has been prepared under my direction and personally reviewed by me in its entirety. I confirm that the note above accurately reflects all work, treatment, procedures, and medical decision making performed by me.
[2018-07-24 02:24] LABS: Calcium 8.6 mg/dl (8.5-10.1); Creatinine Clr Calc Pharmacy 55.6 ml/min; Est GFR (African American) 82.9; Est GFR (Non-African American) 71.5; Potassium 3.9 mmol/L (3.5-5.1)
[2018-07-24 02:37] LABS: Troponin I 5.92 ng/ml (0-0.045)
[2018-07-24] MEDS: ACETAMINOPHEN 325 MG TAB PO PRN (06:02)
[2018-07-24 06:25] LABS: Hematocrit (blood only) 38.7 % (37-47); Hemoglobin 13.2 g/dL (12.0-16.0); Mean Corpuscular Hgb Conc 34.1 g/dL (32-36); Mean Corpuscular Volume 89.2 fL (80-100); Mean Platelet Volume 10.3 fL (7.4-10.4); Platelet Count 292 K/uL (130-400); RDW Coefficient of Variation 13.6 % (11.5-14.5); RDW Standard Deviation 44.8 fL (36.4-46.3); Red Blood Count 4.34 M/uL (4.2-5.4); White Blood Count 9.19 K/uL (4.8-10.8)
[2018-07-24] MEDS ORDERED: ATORVASTATIN 10 MG TAB PO SCH (09:00)
[2018-07-24] MEDS ORDERED: ASPIRIN 81 MG ECTAB PO SCH (09:00)
[2018-07-24] MEDS ORDERED: LISINOPRIL 5 MG TAB PO SCH (09:00)
[2018-07-24] MEDS ORDERED: PANTOprazole 40 MG TAB PO SCH (09:00)
[2018-07-24] MEDS ORDERED: PROMETHAZINE HCL 12.5 MG in SODIUM CHLORIDE 0.9% 50 ML IV ONE (09:15)
[2018-07-24] MEDS: CARVEDILOL 3.125 MG TAB PO SCH (10:41)
[2018-07-24] MEDS ORDERED: PERFLUTREN LIPID MICROSPHERE (DEFINITY) IV ONE (11:56)
--- NOTE | 2018-07-24 15:47 | Cardiology Progress Note ---
Date of Service July 24, 2018 Assessment & Plan (1) Takotsubo syndrome: Cardiac catheterization and echocardiogram findings consistent with Tako Tsubo syndrome. Continue medical management. Patient is stable for hospital discharge. She will follow up with Dr. Dawson. (2) Left ventricular dysfunction: Echocardiogram notes an ejection fraction of 25-30% with a large apical wall motion abnormality. Follow-up echocardiogram to be done as an outpatient. (3) HTN (hypertension): Blood pressure well controlled at this time. (4) Hyperlipidemia: Continue atorvastatin. Subjective The patient is resting comfortably panel without complaints of chest pain or dyspnea. Her son is at the bedside. Physical Exam Vital Signs (Past 24 Hours): Last Vital Signs Temp 36.7 C 07/24/18 15:44 Pulse 75 07/24/18 15:44 Resp 16 07/24/18 15:44 BP 91/60 L 07/24/18 15:44 Pulse Ox 95 07/24/18 15:44 Physical Exam: In general is well-developed well-nourished female no acute distress. HEENT exam is negative. Neck is supple with full carotid upstrokes. No carotid bruits. Jugular venous pressure is flat at 90. No thyromegaly. Cardiovascular exam reveals a regular rhythm with normal S1-S2. No S3, S4, or murmurs are noted. Lungs are clear without rales, rhonchi or wheezes. Abdomen is soft without bruits. Extremities reveal intact radial artery pulses bilaterally. No peripheral edema. Results & Data Laboratory Results Laboratory Results - last 24 hr 07/23/18 07/23/18 07/24/18 19:27 20:13 01:54 WBC RBC Hgb Hct MCV MCH MCHC RDW Std Deviation RDW Coeff of Carine Plt Count MPV Sodium 137 Potassium 3.9 Chloride 107 Carbon Dioxide 26 Anion Gap 4.0 BUN 23 H D Creatinine 0.81 Est Cr Clr Drug Dosing 55.6 Est GFR ( Amer) 82.9 Est GFR (Non-Af Amer) 71.5 BUN/Creatinine Ratio 28.0 H Glucose 124 H Calcium 8.6 Troponin I 7.210 H* 5.920 H* Urine Color Yellow Urine Appearance Clear Urine pH 5.5 Ur Specific [place] 1.043 H Urine Protein Trace H Urine Glucose (UA) Negative Urine Ketones Trace H Urine Blood Negative Urine Nitrite Negative Urine Bilirubin Negative Urine Urobilinogen Negative Ur Leukocyte Esterase Negative Urine WBC (Auto) 5-10 H Urine RBC (Auto) 0-4 U Hyaline Cast (Auto) 1-5 U Epithel Cells (Auto) >30 H Urine Bacteria (Auto) 1+ H 07/24/18 06:12 WBC 9.19 RBC 4.34 Hgb 13.2 Hct 38.7 MCV 89.2 MCH 30.4 MCHC 34.1 RDW Std Deviation 44.8 RDW Coeff of Carine 13.6 Plt Count 292 MPV 10.3 Sodium Potassium Chloride Carbon Dioxide Anion Gap BUN Creatinine Est Cr Clr Drug Dosing Est GFR ( Amer) Est GFR (Non-Af Amer) BUN/Creatinine Ratio Glucose Calcium Troponin I Urine Color Urine Appearance Urine pH Ur Specific [place] Urine Protein Urine Glucose (UA) Urine Ketones Urine Blood Urine Nitrite Urine Bilirubin Urine Urobilinogen Ur Leukocyte Esterase Urine WBC (Auto) Urine RBC (Auto) U Hyaline Cast (Auto) U Epithel Cells (Auto) Urine Bacteria (Auto) Diagnostic Findings Echocardiogram noted severe left ventricular dysfunction with a large akinetic apex and mid and distal left ventricular greer. Ejection fraction 25-30%. 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
--- NOTE | 2018-07-24 16:13 | Hospitalist Progress Note ---
Date of Service July 24, 2018 Assessment & Plan (1) Chest pain: (2) Takotsubo syndrome: Present on admission with vomiting and developed chest pain while in the ER with EKG changes History of Takotsubo cardiomyopathy in 2010 Elevated Troponin, trending down Emergent cardiac catheterization done but was not found to have any acute coronary syndrome. Cardiac catheterization and echocardiogram findings consistent with Tako Tsubo syndrome. Case discussed with cardiology recommended to continue Lisinopril 5 mg, Carvedilol 3.125mg, aspirin and statin Pt refused to start any psych med because she did not do well with them in the past Recent ECHO showed Echocardiogram notes an ejection fraction of 25-30% with a large apical wall motion abnormality. Follow-up echocardiogram to be done as an outpatient. Follow up with cardiology in 2 weeks (3) Vomiting: Continue phenergan PRN Stable (4) HTN (hypertension): BP in the low side Continue Lisinopril and metoprolol Monitor BP (5) Hyperlipidemia: Continue statin (6) Abnormal urinalysis: UA negative for leukocytes and nitrite urine cx grew strep species Denies any dysuria, but complaint of increase urinary frequency (has been drinking alot of water) Pt said that she usually knows when she has a UTI, but doubt for now Afebrile and no leukocytosis Patient said that she usually got treating for UTI Pt siad that she got amoxicillin in the past and tolerated well (Pt is 100% sure that she had it in the past) She said that when she was a child, she had an allergic reaction with ppenicillin, not amocillin Will discharge pt with a script for amoxicillin, advised pt to fill the script only if she develops urinary symptoms (7) GERD (gastroesophageal reflux disease): continue PPI DVT Prophylaxis SCDs Code Status Full Code Disposition Will discharge home today Follow up appointment with Dr. Cloud on 07/29 @ 12:45 PM Follow up with [facility] cardiology in 2 weeks Will need outpatient repeat ECHO Subjective Pt was seen and examined Lying in bed with no distress with son at bedside Pt said that she was nauseated this morning She said that the phenergan worked for the nausea Denies any chest pain, palpitation, dizziness and SOB Physical Exam Vital Signs (Past 24 Hours): Last Vital Signs Temp 36.7 C 07/24/18 15:44 Pulse 75 07/24/18 15:44 Resp 16 07/24/18 15:44 BP 91/60 L 07/24/18 15:44 Pulse Ox 95 07/24/18 15:44 Physical Exam: General- No acute distress Head- atraumatic Eyes- PERRL, EOMI, ENT- oropharynx clear Neck- supple, no JVD Lungs- clear to auscultation Heart- regular rhythm; no murmur Abdomen- normal bowel sounds, soft, nontender Extremities- no calf tenderness Neuro- alert, oriented x 3; PERRL, EOMI; no facial palsy; no dysarthria Skin- warm & dry
--- NOTE | 2018-07-25 08:27 | Discharge Summary ---
Date of Service July 24, 2018 Admission HPI Per Admitting Provider Pt is 72 y/o F with PMH GERD, HTN, anxiety, HLD, h/o intolerance to statins, possible TIA 11/2017, Takotsubo cardiomyopathy in 2009 presented to ER with c/o nausea and vomiting. Patient states this morning she went to the gym. Reports upon getting off bus started with nausea and dry heaves.Patient presented to ER with vomiting. She denied any chest pain or shortness of breath or dizziness at that time. Denied abdominal pain, fever/chills, diaphoresis, hematemesis, diarrhea, ROBLES, syncope, vision changes, neck pain, palpitations, cough, sore throat, choking, otalgia, rhinorrhea, paresthesias, extremity edema, rashes, urinary symptoms. Pt follows with Dr Dawson- cardiology. Hx cardiac cath 2009:10-20% proximal mid LAD stenoses. Mild circumflex stenoses. Minor RCA irregularities. In ER Initial EKG without acute changes and initial point of care troponin negative. While in ER pt developed CP and was noted to have EKG changes and was taken to Psych Nurse. Admission Exam Per Admitting Provider General: mildly anxious appearing, WDWN Head: normocephalic, atraumatic Eyes: PERRL, EOM's intact, conjunctiva non-injected, anicteric ENT: normal inspection external ears, nose, mucous membranes moist Neck: supple, trachea midline Lungs: clear, no respiratory distress, no wheezing/rhonchi/rales CV: RRR, no murmur, no pretibial edema Abd: normal BS, soft, non-tender Ext: no cyanosis, no calf tenderness Neuro: A&O x 3, no focal deficits noted, normal affect Skin: warm, dry Principal Diagnosis Chest pain: Takotsubo syndrome: Abnormal Urine Discharge Exam General- No acute distress Head- atraumatic Eyes- PERRL, EOMI, ENT- oropharynx clear Neck- supple, no JVD Lungs- clear to auscultation Heart- regular rhythm; no murmur Abdomen- normal bowel sounds, soft, nontender Extremities- no calf tenderness Neuro- alert, oriented x 3; PERRL, EOMI; no facial palsy; no dysarthria Skin- warm & dry Discharge Data Allergies Allergy/AdvReac Type Severity Reaction Status Date / Time morphine Allergy Unknown RASH Verified 07/23/18 13:49 Penicillins Allergy Unknown SWELLING Verified 07/23/18 13:49 nitroglycerin AdvReac Unknown DIZZY Verified 07/23/18 13:49 [id number]-[id number]-[id number] Reductase AdvReac Unknown GI SYMPTOMS Verified 07/23/18 13:49 Inhibitor Consultations 07/23/18 17:11 Consult Cardiology Routine Procedures Performed Operation Date: 07/23/18 16:00 Actual Procedures s Cineradiography w/Routine Exam - Noé Mack MD p Cath, Left with Cors and Vent - Noé Mack MD Ordered Studies 07/23/18 16:00 EP Lab Images for PACS ONCE XR chest 1V portable HISTORY: Atypical chest pain. COMPARISON: None. FINDINGS: The lungs are clear. Cardiac silhouette remains mildly enlarged. No pleural effusions. No pneumothorax. IMPRESSION: No significant change compared to the prior study. No acute process. Stable mild cardiomegaly. Electronically signed by: Min Durham M.D. 07/23/2018 2:35 PM Dictated: 07/23/18 1432 Transcribed: 07/23/18 1432 Hospital Course (1) Chest pain: (2) Takotsubo syndrome: Present on admission with vomiting and developed chest pain while in the ER with EKG changes History of Takotsubo cardiomyopathy in 2010 Elevated Troponin, trending down Emergent cardiac catheterization done but was not found to have any acute coronary syndrome. Cardiac catheterization and echocardiogram findings consistent with Tako Tsubo syndrome. Case discussed with cardiology recommended to continue Lisinopril 5 mg, Carvedilol 3.125mg, aspirin and statin Pt refused to start any psych med because she did not do well with them in the past Recent ECHO showed Echocardiogram notes an ejection fraction of 25-30% with a large apical wall motion abnormality. Follow-up echocardiogram to be done as an outpatient. Follow up with cardiology in 2 weeks (3) Vomiting: Continue phenergan PRN Stable (4) HTN (hypertension): BP in the low side Continue Lisinopril and metoprolol Monitor BP (5) Hyperlipidemia: Continue statin (6) Abnormal urinalysis: UA negative for leukocytes and nitrite urine cx grew strep species Denies any dysuria, but complaint of increase urinary frequency (has been drinking alot of water) Pt said that she usually knows when she has a UTI, but doubt for now Afebrile and no leukocytosis Patient said that she usually got treating for UTI Pt siad that she got amoxicillin in the past and tolerated well (Pt is 100% sure that she had it in the past) She said that when she was a child, she had an allergic reaction with ppenicillin, not amocillin Will discharge pt with a script for amoxicillin, advised pt to fill the script only if she develops urinary symptoms (7) GERD (gastroesophageal reflux disease): continue PPI DVT Prophylaxis SCDs Code Status Full Code Disposition Will discharge home today Follow up appointment with Dr. Cloud on 07/29 @ 12:45 PM Follow up with [facility] cardiology in 2 weeks Will need outpatient repeat ECHO Total Time Total Time Spent Total Time Spent (In Minutes): 35 minutes Total Time Includes: Examination of the Patient, Discharge Planning, Medication Reconciliation, Communication With Other Providers and Other Discharge Plan Discharge Items Patient Disposition: Home - Self-Care Reason For Visit: CHEST PAIN Discharge Diagnosis: Chest pain: Takotsubo syndrome: Abnormal Urine Discharge Goals: Decrease discomfort, Improve disease control, Improve function and Increase independence Activity: Resume your previous activity Activity Comment: As tolerated Non-emergency contact: Primary Care Provider and Architectural Sales Consultant Call non-emergency contact if: you have any medication questions and your temperature is above 101 Follow-up/Referrals: Zach Cloud MD [Primary Care Provider] - Diet: Heart Healthy Addtl Provider Instructions: Follow up appointment with Dr. Cloud on 07/29 @ 12:45 PM Follow up with [facility] cardiology in 2 weeks (office will call you for the appointment ) Will need outpatient repeat ECHO in next few months (Cardiology will arrange for it) Monitor your blood pressure Hold amoxicillin for now, but If you develop any urinary symptoms, ok to fill the script for amoxicillin (You said that you had amoxicillin in the past with no problem) Prescriptions: New carvedilol 3.125 mg Tablet 3.125 mg PO BID Qty: 60 RF: 0 promethazine 25 mg tablet 25 mg PO Q12H PRN (Reason: nausea and vomiting) Qty: 30 RF: 0 amoxicillin 500 mg tablet 500 mg PO Q12H Qty: 6 RF: 0 Continued atorvastatin 10 mg tablet 5 mg PO DAILY RF: 0 pantoprazole 40 mg tablet,delayed release (DR/EC) 40 mg PO DAILY RF: 0 lisinopril 5 mg tablet 5 mg PO DAILY RF: 0 aspirin 81 mg Tablet,Delayed Release (Dr/Ec) 81 mg PO DAILY RF: 0 Stand-Alone Forms: [employer] [facility]/Other Patient Handouts: Carvedilol Oral tablet, Cardiomyopathy Takotsubo Discharge Orders: Discharge Order (Routine); Ordered 07/24/18 Ordered By: Catarino Prado Admission Data Admit Date/Time: 07/23/18 16:29 Attending Provider: Catarino Prado Admit Provider: Catarino Prado Primary Care Provider: Zach Cloud Other Providers: Noé Mack Service: Telemetry Other Interventions: Discharge Summary Assessment (RN) Last Done: 07/24/18 17:34 DC Date/Time DO NOT enter until pt leaves facility: 07/24/18 18:40
--- NOTE | 2018-08-06 08:08 | Operative Report ---
operative report not dictated MTDD
--- NOTE | 2018-08-12 17:18 | Cardiac Catheterization ---
Date of Service July 23, 2018 Cardiac Cath Report Cardiac Cath Report Procedure performed: Cardiac catheterization, left heart catheterization, left ventriculography, coronary angiography Staff personnel administrator: Jose Mack MD Indication: Patient is a 72-year-old woman with a history of Takotsubo's cardiomyopathy who presented to [facility] Emergency room with symptoms of chest discomfort and EKG abnormalities. It based on the nature of her symptoms and objective finding she was brought urgently to the cardiac catheterization suite Procedure in detail: The patient was informed of the risks benefits and alternatives to the intended procedure, he understood such and wished to proceed. He was taken to the cardiac catheterization suite in a fasting state. Conscious sedation was administered per protocol and the patient was monitored electrocardiographically throughout today's procedure. The right wrist area was prepped and draped in usual sterile fashion. This area was anesthetized using subcutaneous administration of a lidocaine solution. The right radial artery was then accessed using Seldinger technique, and a arterial sheath was placed at this site over a guidewire. The sheath was used to facilitate passage of the cardiac catheter for coronary angiography and left heart catheterization. Left ventriculography was also performed. Coronary angiogram was then obtained in multiple orthogonal views prior to removal of the catheter. At the conclusion of the procedure the sheath was removed and hemostasis was achieved at the access site using manual pressure. The patient tolerated procedure well, there were no immediate complications. Equipment used: 5 Tajik tiger 4, 5 Tajik angled pigtail Findings: Opening aortic pressure: 99/62 mm of mercury Left ventricular pressure: 120/6 mm of mercury Left ventricular end-diastolic pressure: 7 mm Hg Closing aortic pressure: 129/67 mm of mercury Coronary angiography: Left main: Left main coronary artery was normal size and caliber and bifurcated into left anterior descending left circumflex artery. There is no significant disease in this vessel Left anterior descending: Left anterior descending was a large transapical vessel. It produced a large 1st diagonal and medium size 2nd diagonal branch. There is approximately 20% stenosis at the ostium of the 1st diagonal. There is approximately 40-50% stenosis in the mid vessel just distal to the 1st diagonal branch. There is approximately 50% stenosis at the ostium of the 2nd diagonal branch. Left circumflex artery: Left circumflex artery is a nondominant vessel. It produced a diminutive 1st OM branch and a very large 2nd OM branch. There is no significant obstructive disease in this distribution. There was evidence of hypertensive arteriopathy. Right coronary artery: Right coronary artery was a very large vessel. It produced a large posterior descending artery and posterior lateral artery. There are luminal regularities but no discrete stenosis in this distribution. 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
== END 2018-07-24 18:40 | disposition home or self-care (01) ==
LOC: ED 13:10 → 2S 13:10

== ENCOUNTER 2020-10-09 09:46 | Inpatient (IN) ==
[2020-10-09] MEDS ORDERED: SODIUM CHLORIDE 0.9% 500 ML IV STA (10:05)
--- NOTE | 2020-10-09 10:40 | CT Scan Report ---
CT SCAN OF THE ABDOMEN AND PELVIS WITHOUT IV CONTRAST CLINICAL HISTORY: Lower abdominal pain. COMPARISON STUDY: KUB dated 08/30/2009. TECHNIQUE: CT scan of the abdomen and pelvis is performed from the lung bases to the proximal femora. Images are reviewed in the axial, sagittal, and coronal planes. IV contrast was not administered for this examination. A dose lowering technique was utilized adhering to the principles of ALARA. CT DOSE: 609.81 mGy.cm FINDINGS: Lung bases: The heart is normal in size and without pericardial effusion. The coronary arteries are d ensely calcified. The lung bases are clear. Liver: The unenhanced liver is normal in size, contour, and attenuation. There is no intrahepatic ryder iary ductal dilatation. Gallbladder: Unremarkable. Spleen: Normal in size and attenuation. Pancreas: Unremarkable. Adrenal glands: Unremarkable. Kidneys: The unenhanced kidneys are normal in size and without hydronephrosis. There are no renal rolanda culi identified. There is no evidence of contour deforming renal mass lesion. A 7 mm complex/hyperden se cyst is noted in the left kidney. Abdominal vasculature: The abdominal aorta is normal in course and caliber noting moderate atheroscle rotic calcification. Bowel: There is no bowel obstruction. The appendix is well-visualized and normal. Peritoneum: There is no intraperitoneal free air or abdominal ascites. Lymphadenopathy: None. Pelvic viscera: The bladder is decompressed. Wall appears thickened and there are small foci of intra luminal gas. There are calcified uterine fibroids. No adnexal lesion is seen. Skeletal structures: The skeletal structures are osteopenic. Mild lumbosacral spondylosis is observed . A bone island is noted in the right ischium. No lytic or blastic lesions are seen. IMPRESSION: 1. Findings suggest cystitis. Correlated with clinical findings and urinalysis. 2. Fibroid uterus. 3. Additional findings as above. ACT 112: Negative or not required by law. Electronically signed by: Turner Oakley M.D. 10/09/2020 10:38 AM
--- NOTE | 2020-10-09 10:46 | Emergency Department Note ---
Impression & Plan Abdominal pain, Acute lower GI bleeding ED Provider Note NAME: JOSE MORALES AGE: 74 SEX: F : 1945 ARRIVES VIA: Walk-In INFORMANT: Patient, ED PROVIDER(S): Eliel Flores DO CHIEF COMPLAINT: Abdominal pain HPI: The patient is a 74-year-old female who presented to the emergency department for abdominal pain. The patient has been experiencing intermittent lower abdominal pain over the last 24 hours. She states that the pain is waxing and waning. Sometimes gets worsened with food. She denies having any fever. S he has noticed some rectal bleeding. She has been passing clots from her rectum. She does not have a history of diverticulosis as far she knows. She denies having any fever. She did not see her family doctor for the symptoms. The patient states the pain is moderate to severe at times but at this time it is only mild and worsened with palpation as well as ambulation. She denies having any hematuria. She denies having any dysuria or frequency. The patient presented to the emergency department with her family member. ROS: See above HPI for pertinent positives & negatives. A total of 10 systems reviewed and were otherwise negative. PAST MEDICAL HISTORY: See Below PAST SURGICAL HISTORY: See Below FAMILY HISTORY: See Below SOCIAL HISTORY: See Below HOME MEDICATIONS: See Below ALLERGIES: See Below VITALS: See Below PHYSICAL EXAMINATION: GENERAL: The patient is awake and alert. She is somewhat anxious appearing. She appears to be uncomfortable. EYES: The conjunctivae are clear. The pupils are round and reactive. EARS, NOSE, MOUTH AND THROAT: The nose is without any evidence of any deformity. NECK: The neck is nontender and supple. RESPIRATORY: Normal respiratory effort is noted there is no evidence of wheezing rhonchi or rales CARDIOVASCULAR: Regular rate and rhythm noted there no murmurs rubs or gallops normal S1 normal S2. GASTROINTESTINAL: The abdomen is soft and nondistended. There is significant suprapubic tenderness to palpation. There is no guarding or rigidity. Rectal exam revealed gross blood. MUSCULOSKELETAL/EXTREMITIES: There is no evidence of gross deformity full range of motion is noted in the hips and shoulders. SKIN: There is no obvious evidence of any rash. There are no petechiae, pallor or cyanosis noted. NEUROLOGIC: Patient is awake alert and oriented x3. MEDICAL DECISION MAKING: The patient is a 74-year-old female who presented to the emergency department for an evaluation of abdominal pain. The patient was noted to have abdominal pain as well as rectal bleeding. Physical exam was not consistent with an acute surgical abdomen however CT was obtained to further evaluate the cause the patient's symptoms. I discussed the patient's laboratory and radiographic s tudies with her. She was treated with IV fluids and IV pain medication in the emergency department. On reevaluation she was significantly improved. I discussed patient's laboratory and radiographic studies with the on-call [facility] hospitalist group. They have agreed to evaluate the patient in the emergency department for further management and disposition. Triage Nursing notes reviewed. Prior medical records reviewed Vital Signs: reviewed and remarkable for elevated blood pressure. Differential diagnosis: Etiologies such as appendicitis, diverticulitis, obstruction, inflammatory bowel disease, renal colic, PUD, biliary pathology, pancreatitis, mesenteric ischemia, aortic pathology, infections, genitourinary, UTI, perforated viscus, as well as others were entertained. ER treatment provided: See below Diagnostics interpreted by me: ECG: EKG was obtained in the emergency department. My interpretation is sinus bradycardia at 52 bpm. There was no ectopy. Nonspecific lateral ST segment abnormalities were noted. This was compared to a tracing from July 242018. On the previous tracing there were signs of ST segment abnormalities that appear to be resolved at this time. Cardiac Monitoring: An order was placed for continuous cardiac monitoring. The monitor shows a rate of 70 bpm with sinus rhythm. Laboratory studies: As stated above and show below. Imaging studies: See below Consultation(s): 1240: I discussed this case with Jm who was covering for the CT hospitalist group. Past Med/Surg History Medical History (Updated 10/09/20 @ 14:28 by Eliel Flores DO) Anxiety Previous hx of anxiety and previously on treatment for this. Asthma (01/01/13) CVA (cerebral vascular accident) 2018- BP elevated - TIA like symptoms - resolved left sided weakness GERD (gastroesophageal reflux disease) Hyperlipidemia (01/01/13) Secondary prevention with moderate intensity statin (Atorvastatin 10 mg daily- no longer takes) Right knee DJD Right knee pain Vertigo Onset ~2009 after hospitalization for stress induced cardiomyopathy. Evaluated by Neuro/ENT. MRI brain w/ age related changes. Carotid US w/out significant stenosis. Treated with PT and had resolution of her symptoms Surgical History History of dental surgery S/P cardiac catheterization S/P cataract surgery Family History Family/Other Cardiac abnormality Father Myocardial infarction Obesity Mother Stroke SVT (supraventricular tachycardia) Hydrocephalus Other Heart disease Denies family history of Ovarian cancer Breast cancer Colorectal cancer Social History Smoking Status: Former smoker Hx Alcohol Use: No Hx Substance Use: No Preferred Language: Spanish Communication Ability: Effective Hearing Ability: Normal Tilesetter Required: No Beliefs That Will Affect Care: None marital status: / Current Living Situation: Family Current Living Situation Comment: Lives with Son/POA current occupational status: retired current occupation: Retired Feels Safe at Home: Yes Childhood Exposure to Second-Hand Smoke: Yes Dental Care, Regularly: Yes Physical Activity Frequency: 3-4 Times per Week Seatbelt Use: always Sunscreen Use: No Assistive Devices: None Allergies Allergies Allergy/AdvReac Type Severity Reaction Status Date / Time lisinopril Allergy Unknown Verified 10/09/20 14:10 morphine Allergy Unknown RASH Verified 10/09/20 14:10 Penicillins Allergy Unknown SWELLING Verified 10/09/20 14:10 nitroglycerin AdvReac Unknown DIZZY Verified 10/09/20 14:10 [id number] Reductase AdvReac Unknown GI SYMPTOMS Verified 10/09/20 14:10 Inhibitor Home Meds Home Medications Medication Instructions Recorded Confirmed multivitamin 1 tab PO DAILY 12/11/18 10/09/20 diclofenac sodium 1 % topical gel 4 g TOP QID PRN gm 07/30/20 10/09/20 aspirin [Adult Low Dose Aspirin] 81 mg PO DAILY PRN 10/09/20 10/09/20 carvedilol 3.125 mg PO HS 10/09/20 10/09/20 losartan 25 mg PO HS 10/09/20 10/09/20 rosuvastatin 5 mg PO 3XWK 10/09/20 10/09/20 Previous Rx's Medication Instructions Recorded pantoprazole 40 mg tablet,delayed 20 mg PO DAILY PRN #45 tab 07/05/20 release Results & Data (ED) Vital Signs Vital Signs - 24 hr 10/09/20 09:52 10/09/20 10:10 10/09/20 10:55 Temperature 36.8 C Temperature Source Skin Pulse Rate 88 58 L Pulse Rate [Right Radial] 56 L Pulse Rhythm Regular Pulse Rhythm [Right Radial] Respiratory Rate 18 20 20 Respiratory Effort / Characteristics Non-Labored Spontaneous Non-Labored Spontaneous Respiratory Depth Normal Normal Respiratory Pattern Regular Blood Pressure 123/76 Blood Pressure [Right Arm] 164/71 H Blood Pressure Mean 91 Blood Pressure Mean [Right Arm] 102 Blood Pressure Position Sitting Blood Pressure Position [Right Arm] Lying Pulse Oximetry 98 96 Oxygen Delivery Method Room Air Room Air Room Air Sepsis Recent Fever Within 48 Hours No Sepsis New/Unexplained Change in Mental Status N/A Sepsis Action Taken by Nursing No Action Required 10/09/20 12:11 10/09/20 13:03 Temperature Temperature Source Pulse Rate Pulse Rate [Right Radial] 55 L 62 Pulse Rhythm Pulse Rhythm [Right Radial] Regular Regular Respiratory Rate 18 16 Respiratory Effort / Characteristics Non-Labored Spontaneous Non-Labored Spontaneous Respiratory Depth Normal Normal Respiratory Pattern Blood Pressure Blood Pressure [Right Arm] 148/72 H 150/84 H Blood Pressure Mean Blood Pressure Mean [Right Arm] 97 106 Blood Pressure Position Blood Pressure Position [Right Arm] Lying Lying Pulse Oximetry 96 95 Oxygen Delivery Method Room Air Room Air Sepsis Recent Fever Within 48 Hours Sepsis New/Unexplained Change in Mental Status Sepsis Action Taken by Retirement Medications Current Medication List: was personally reviewed by me Laboratory Data Attestation: I reviewed the patient's lab results. Result diagrams: 10/09/20 11:43 10/09/20 11:43 Lab Results 10/09/20 10/09/20 10/09/20 Range/Units 11:23 11:23 11:23 WBC (4.8-10.8) K/uL RBC (4.2-5.4) M/uL Hgb (12.0-16.0) g/dL Hct (37-47) % MCV (80-100) fL MCH (25-34) pg MCHC (32-36) g/dL RDW Std Deviation (36.4-46.3) fL RDW Coeff of Carine (11.5-14.5) % Plt Count (130-400) K/uL MPV (7.4-10.4) fL Immature Gran % (Auto) % Neut % (Auto) % Lymph % (Auto) % [place] % (Auto) % Eos % (Auto) % Baso % (Auto) % Neut # (Auto) (1.4-6.5) K/uL Lymph # (Auto) (1.2-3.4) K/uL [place] # (Auto) (0.11-0.59) K/uL Eos # (Auto) (0-0.5) K/uL Baso # (Auto) (0-0.2) K/uL Immature Gran # (Auto) (0.00-0.02) K/uL PT (9.0-12.0) Seconds INR (0.9-1.1) APTT (21.0-31.0) Seconds PTT Ratio Sodium (136-145) mmol/L Potassium (3.5-5.1) mmol/L Chloride (98-107) mmol/L Carbon Dioxide (21-32) mmol/L Anion Gap (3-11) BUN (7-18) mg/dl Creatinine (0.6-1.2) mg/dl Est Cr Clr Drug Dosing ml/min Est GFR ( Amer) ml/min Est GFR (Non-Af Amer) ml/min BUN/Creatinine Ratio (10-20) Glucose (70-99) mg/dl Lactate (0.4-2.0) mmol/L Calcium (8.5-10.1) mg/dl Total Bilirubin (0.2-1) mg/dl AST (15-37) U/L ALT (12-78) U/L Alkaline Phosphatase (45-117) U/L Troponin I (0-0.045) ng/ml Total Protein (6.4-8.2) gm/dl Albumin (3.4-5.0) gm/dl Globulin (2.5-4.0) gm/dl Albumin/Globulin Ratio (0.9-2) Lipase (73-393) U/L Urine Color Yellow Urine Appearance Clear (Clear) Urine pH 6.0 (4.5-7.5) Ur Specific [place] 1.021 (1.000-1.030) Urine Protein Trace H (Negative) Urine Glucose (UA) Negative (Negative) Urine Ketones Trace H (Negative) Urine Blood Negative (Negative) Urine Nitrite Negative (Negative) Urine Bilirubin Negative (Negative) Urine Urobilinogen Negative (Negative) Ur Leukocyte Esterase Trace H (Negative) Urine WBC (Auto) 5-10 H (0-5) /hpf Urine RBC (Auto) 0-4 (0-4) /hpf U Hyaline Cast (Auto) 5-10 H (0-5) /lpf U Epithel Cells (Auto) >30 H (0-5) /lpf Urine Bacteria (Auto) 1+ H (Negative) COVID-19 Eval Order Covid19 at [facility] SARS-CoV-2 (PCR) NEGATIVE (Negative) Blood Type Antibody Screen 10/09/20 10/09/20 10/09/20 Range/Units 11:43 11:43 11:43 WBC 9.56 (4.8-10.8) K/uL RBC 3.97 L (4.2-5.4) M/uL Hgb 12.1 (12.0-16.0) g/dL Hct 35.7 L (37-47) % MCV 89.9 (80-100) fL MCH 30.5 (25-34) pg MCHC 33.9 (32-36) g/dL RDW Std Deviation 45.2 (36.4-46.3) fL RDW Coeff of Carine 13.6 (11.5-14.5) % Plt Count 257 (130-400) K/uL MPV 10.3 (7.4-10.4) fL Immature Gran % (Auto) 0.3 % Neut % (Auto) 75.1 % Lymph % (Auto) 19.7 % [place] % (Auto) 4.7 % Eos % (Auto) 0.0 % Baso % (Auto) 0.2 % Neut # (Auto) 7.18 H (1.4-6.5) K/uL Lymph # (Auto) 1.88 (1.2-3.4) K/uL [place] # (Auto) 0.45 (0.11-0.59) K/uL Eos # (Auto) 0.00 (0-0.5) K/uL Baso # (Auto) 0.02 (0-0.2) K/uL Immature Gran # (Auto) 0.03 H (0.00-0.02) K/uL PT 10.2 (9.0-12.0) Seconds INR 1.0 (0.9-1.1) APTT 26.9 (21.0-31.0) Seconds PTT Ratio 1.0 Sodium 138 (136-145) mmol/L Potassium 3.8 (3.5-5.1) mmol/L Chloride 107 (98-107) mmol/L Carbon Dioxide 24 (21-32) mmol/L Anion Gap 8.0 (3-11) BUN 13 (7-18) mg/dl Creatinine 0.67 (0.6-1.2) mg/dl Est Cr Clr Drug Dosing 66.0 ml/min Est GFR ( Amer) 99.0 ml/min Est GFR (Non-Af Amer) 85.4 ml/min BUN/Creatinine Ratio 19.7 (10-20) Glucose 93 (70-99) mg/dl Lactate (0.4-2.0) mmol/L Calcium 9.3 (8.5-10.1) mg/dl Total Bilirubin 0.4 (0.2-1) mg/dl AST 23 (15-37) U/L ALT 26 (12-78) U/L Alkaline Phosphatase 64 (45-117) U/L Troponin I < 0.015 (0-0.045) ng/ml Total Protein 8.2 (6.4-8.2) gm/dl Albumin 3.8 (3.4-5.0) gm/dl Globulin 4.4 H (2.5-4.0) gm/dl Albumin/Globulin Ratio 0.9 (0.9-2) Lipase 94 (73-393) U/L Urine Color Urine Appearance (Clear) Urine pH (4.5-7.5) Ur Specific [place] (1.000-1.030) Urine Protein (Negative) Urine Glucose (UA) (Negative) Urine Ketones (Negative) Urine Blood (Negative) Urine Nitrite (Negative) Urine Bilirubin (Negative) Urine Urobilinogen (Negative) Ur Leukocyte Esterase (Negative) Urine WBC (Auto) (0-5) /hpf Urine RBC (Auto) (0-4) /hpf U Hyaline Cast (Auto) (0-5) /lpf U Epithel Cells (Auto) (0-5) /lpf Urine Bacteria (Auto) (Negative) COVID-19 Eval Order SARS-CoV-2 (PCR) (Negative) Blood Type Antibody Screen 10/09/20 10/09/20 Range/Units 11:43 12:58 WBC (4.8-10.8) K/uL RBC (4.2-5.4) M/uL Hgb (12.0-16.0) g/dL Hct (37-47) % MCV (80-100) fL MCH (25-34) pg MCHC (32-36) g/dL RDW Std Deviation (36.4-46.3) fL RDW Coeff of Carine (11.5-14.5) % Plt Count (130-400) K/uL MPV (7.4-10.4) fL Immature Gran % (Auto) % Neut % (Auto) % Lymph % (Auto) % [place] % (Auto) % Eos % (Auto) % Baso % (Auto) % Neut # (Auto) (1.4-6.5) K/uL Lymph # (Auto) (1.2-3.4) K/uL [place] # (Auto) (0.11-0.59) K/uL Eos # (Auto) (0-0.5) K/uL Baso # (Auto) (0-0.2) K/uL Immature Gran # (Auto) (0.00-0.02) K/uL PT (9.0-12.0) Seconds INR (0.9-1.1) APTT (21.0-31.0) Seconds PTT Ratio Sodium (136-145) mmol/L Potassium (3.5-5.1) mmol/L Chloride (98-107) mmol/L Carbon Dioxide (21-32) mmol/L Anion Gap (3-11) BUN (7-18) mg/dl Creatinine (0.6-1.2) mg/dl Est Cr Clr Drug Dosing ml/min Est GFR ( Amer) ml/min Est GFR (Non-Af Amer) ml/min BUN/Creatinine Ratio (10-20) Glucose (70-99) mg/dl Lactate 1.6 (0.4-2.0) mmol/L Calcium (8.5-10.1) mg/dl Total Bilirubin (0.2-1) mg/dl AST (15-37) U/L ALT (12-78) U/L Alkaline Phosphatase (45-117) U/L Troponin I (0-0.045) ng/ml Total Protein (6.4-8.2) gm/dl Albumin (3.4-5.0) gm/dl Globulin (2.5-4.0) gm/dl Albumin/Globulin Ratio (0.9-2) Lipase (73-393) U/L Urine Color Urine Appearance (Clear) Urine pH (4.5-7.5) Ur Specific [place] (1.000-1.030) Urine Protein (Negative) Urine Glucose (UA) (Negative) Urine Ketones (Negative) Urine Blood (Negative) Urine Nitrite (Negative) Urine Bilirubin (Negative) Urine Urobilinogen (Negative) Ur Leukocyte Esterase (Negative) Urine WBC (Auto) (0-5) /hpf Urine RBC (Auto) (0-4) /hpf U Hyaline Cast (Auto) (0-5) /lpf U Epithel Cells (Auto) (0-5) /lpf Urine Bacteria (Auto) (Negative) COVID-19 Eval Order SARS-CoV-2 (PCR) (Negative) Blood Type O Positive Antibody Screen NEGATIVE Administered Medications Discontinued Medications Fentanyl Citrate (Fentanyl Citrate 100 Mcg/2 Ml Vial) 50 mcg IV Q15M PRN PRN Reason: Pain Stop: 10/23/20 11:11 Last Admin: 10/09/20 11:24 Dose: 50 mcg Documented by: [id number] Sodium Chloride (Nss) 500 mls @ 999 mls/hr IV .Q31M STA Stop: 10/09/20 10:35 Last Infusion: 10/09/20 11:55 Dose: 0 mls/hr Documented by: [id number] Admin: 10/09/20 11:24 Dose: 999 mls/hr Documented by: [id number] Pantoprazole Sodium 40 mg/ (Syringe) 10 mls @ 5 mls/min IV NOW STA Stop: 10/09/20 13:13 Last Admin: 10/09/20 14:11 Dose: 5 mls/min Documented by: [id number] Imaging Data Radiologist's Impression: Abdomen/Pelvis CT 10/09/20 10:05 CT SCAN OF THE ABDOMEN AND PELVIS WITHOUT IV CONTRAST CLINICAL HISTORY: Lower abdominal pain. COMPARISON STUDY: KUB dated 08/30/2009. TECHNIQUE: CT scan of the abdomen and pelvis is performed from the lung bases to the proximal femora. Images are reviewed in the axial, sagittal, and coronal planes. IV contrast was not administered for this examination. A dose lowering technique was utilized adhering to the principles of ALARA. CT DOSE: 609.81 mGy.cm FINDINGS: Lung bases: The heart is normal in size and without pericardial effusion. The coronary arteries are densely calcified. The lung bases are clear. Liver: The unenhanced liver is normal in size, contour, and attenuation. There is no intrahepatic biliary ductal dilatation. Gallbladder: Unremarkable. Spleen: Normal in size and attenuation. Pancreas: Unremarkable. Adrenal glands: Unremarkable. Kidneys: The unenhanced kidneys are normal in size and without hydronephrosis. There are no renal calculi identified. There is no evidence of contour deforming renal mass lesion. A 7 mm complex/hyperdense cyst is noted in the left kidney. Abdominal vasculature: The abdominal aorta is normal in course and caliber noting moderate atherosclerotic calcification. Bowel: There is no bowel obstruction. The appendix is well-visualized and normal. Peritoneum: There is no intraperitoneal free air or abdominal ascites. Lymphadenopathy: None. Pelvic viscera: The bladder is decompressed. Wall appears thickened and there are small foci of intraluminal gas. There are calcified uterine fibroids. No adnexal lesion is seen. Skeletal structures: The skeletal structures are osteopenic. Mild lumbosacral spondylosis is observed. A bone island is noted in the right ischium. No lytic or blastic lesions are seen. IMPRESSION: 1. Findings suggest cystitis. Correlated with clinical findings and urinalysis. 2. Fibroid uterus. 3. Additional findings as above. ACT 112: Negative or not required by law. Electronically signed by: Turner Oakley M.D. 10/09/2020 10:38 AM Discharge Plan Visit Data Chief Complaint: Abdominal Pain Stated Complaint: ABD PAIN ED Provider: Eliel Flores Discharge Problem: Abdominal pain, Acute lower GI bleeding Patient Disposition: Admitted As Inpatient Condition: Good Forms Stand Alone Forms: [employer] Prescriptions Prescriptions: No Action pantoprazole 40 mg tablet,delayed release (DR/EC) 20 mg PO DAILY PRN (Reason: indigestion) Qty: 45 RF: 3 diclofenac sodium 1 % gel 4 g TOP QID PRN (Reason: Pain) RF: 0 multivitamin [Multiple Vitamins] tablet 1 tab PO DAILY RF: 0 aspirin [Adult Low Dose Aspirin] 81 mg tablet,delayed release (DR/EC) 81 mg PO DAILY PRN (Reason: Pain) RF: 0 carvedilol 3.125 mg tablet 3.125 mg PO HS RF: 0 losartan 25 mg tablet 25 mg PO HS RF: 0 rosuvastatin 5 mg tablet 5 mg PO 3XWK RF: 0 Referrals Referrals: Claudia Flores MD [Primary Care Provider] - Discharge Problem: Abdominal pain Qualifiers: Abdominal location: lower abdomen, unspecified Qualified Code(s): R10.30 - Lower abdominal pain, unspecified
[2020-10-09] MEDS ORDERED: fentaNYL citrate 100 MCG/2 ML VIAL IV PRN (11:12)
[2020-10-09 11:44] LABS: Appearance Urine Clear (Clear); Bacteria Urine Automated 1+ (Negative); Bilirubin Urine Negative (Negative); Blood Urine Negative (Negative); Color Urine Yellow; Epithelial Cell Urine Auto >30 /lpf (0-5); Glucose Urine UA Negative (Negative); Ketones Urine Trace (Negative); Leukocyte Esterase Urine Trace (Negative); Nitrite Urine Negative (Negative); Protein Urine Trace (Negative); RBC Urine Automated 0-4 /hpf (0-4); Specific Gravity Urine 1.021 (1.000-1.030); Urobilinogen Urine Negative (Negative)
[2020-10-09 11:51] LABS: Basophils # (auto) 0.02 K/uL (0-0.2); Basophils % (auto) 0.2 %; Hematocrit (blood only) 35.7 % (37-47); Hemoglobin 12.1 g/dL (12.0-16.0); Immature Granulocytes # (auto) 0.03 K/uL (0.00-0.02); Immature Granulocytes % (auto) 0.3 %; Lymphocytes # (auto) 1.88 K/uL (1.2-3.4); Lymphocytes % (auto) 19.7 %; Mean Corpuscular Hemoglobin 30.5 pg (25-34); Mean Corpuscular Hgb Conc 33.9 g/dL (32-36); Mean Corpuscular Volume 89.9 fL (80-100); Mean Platelet Volume 10.3 fL (7.4-10.4); Monocytes # (auto) 0.45 K/uL (0.11-0.59); Monocytes % (auto) 4.7 %; Neutrophils # (auto) 7.18 K/uL (1.4-6.5); Neutrophils % (auto) 75.1 %; Platelet Count 257 K/uL (130-400); RDW Coefficient of Variation 13.6 % (11.5-14.5); RDW Standard Deviation 45.2 fL (36.4-46.3); Red Blood Count 3.97 M/uL (4.2-5.4); White Blood Count 9.56 K/uL (4.8-10.8)
[2020-10-09 12:02] LABS: Partial Thromboplastin Time 26.9 Seconds (21.0-31.0); Prothrombin Time 10.2 Seconds (9.0-12.0)
[2020-10-09 12:08] LABS: Alanine Aminotransferase 26 U/L (12-78); Albumin Level 3.8 gm/dl (3.4-5.0); Aspartate Aminotransferase 23 U/L (15-37); BUN Creatinine Ratio 19.7 (10-20); Blood Urea Nitrogen 13 mg/dl (7-18); Calcium 9.3 mg/dl (8.5-10.1); Carbon Dioxide 24 mmol/L (21-32); Chloride 107 mmol/L (98-107); Est GFR (Non-African American) 85.4 ml/min; Glucose 93 mg/dl (70-99); Lipase 94 U/L (73-393); Potassium 3.8 mmol/L (3.5-5.1); Sodium 138 mmol/L (136-145)
[2020-10-09 12:13] LABS: Albumin Globulin Ratio 0.9 (0.9-2); Alkaline Phosphatase 64 U/L (45-117); Bilirubin,Total 0.4 mg/dl (0.2-1); Globulin 4.4 gm/dl (2.5-4.0); Total Protein 8.2 gm/dl (6.4-8.2); Troponin I < 0.015 ng/ml (0-0.045)
--- NOTE | 2020-10-09 12:16 | Electrocardiogram Report ---
Test Reason : Blood Pressure : / mmHG Vent. Rate : 052 BPM Atrial Rate : 052 BPM P-R Int : 196 ms QRS Dur : 104 ms QT Int : 456 ms P-R-T Axes : 040 -38 000 degrees QTc Int : 424 ms Sinus bradycardia with sinus arrhythmia Left axis deviation Minimal voltage criteria for LVH, may be normal variant Abnormal ECG When compared with ECG of 24-JUL-2018 06:16, Nonspecific T wave abnormality has replaced inverted T waves in Anterior leads Confirmed by Jose Mack ([id number]) on 10/09/2020 12:15:46 PM Referred By: REFERRED SELF Confirmed By:Pablo Mack
[2020-10-09] MEDS ORDERED: PANTOprazole 40 MG in SYRINGE 0 ML IV STA (13:12)
--- NOTE | 2020-10-09 13:40 | History & Physical Report ---
Date of Service October 09, 2020 Assessment & Plan (1) GI bleed: Abdominal pain with passage of small clots - No syncope, no presyncope - no hemodynamic instability noted - Colonoscopies per HPI, normal- no mention of hemorrhoids - Unspecified source- this started around 8-9 PM last night- would expect some drifting of hemoglobin - no clear etiology of source or acute bleeding at this time- ? if capsule study would be most appropriate - PPI IV BID for next 24-48 hours - Clear diet, NPO after midnight - Type and cross performed (2) Cerebrovascular disease: Attributed to cerebral atrophy with mild cerebrovascular disease - Recently evaluated by Neurology for her gait and balance. - No acute needs- continue disease reduction medications - PT/OT (3) Weakness: As above - Has had normal B12 and TSH levels - Pt/OT - Uses cane when walking outside but not inside the house - Has been ongoing for years following her Takao-Subo (4) Fatigue: As above - not anemic at this time and normocytic and normochromic (5) Right knee DJD: No acute needs (6) Hypertension: Continue Carvedilol and Losartan - If she shows signs of hemodynamic instability or reoccurrence of bleeding will hold as needed. 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 Patient came to the emergency room today for complaints of suprapubic pain midline, with no radiation and rated 9/10 that almost made her "pass out"; accompanied by progressively softening BMs overnight and passage of clots this morning, which she has pictures of on her iPAD. She has not passed any further stools or clots since this morning, the rectal exam in the EMD reported as gross heme. She is currently on bedpan with no blood in bed carpenter or oozing from rectum. Her pain is decreasing. She is hemodynamically normal at this point as well as stable HGB/HCT levels as well as renal and liver functions. She had a CT scan of her abdomen and pelvis without IV or oral contrast. Patient will be admitted to medical telemetry unit, started on clears for now, recheck HGB/HCT later in evening. GI consult, Bolus dosing of Protonix BID. Allergies Allergy/AdvReac Type Severity Reaction Status Date / Time lisinopril Allergy Unknown Verified 10/09/20 14:10 morphine Allergy Unknown RASH Verified 10/09/20 14:10 Penicillins Allergy Unknown SWELLING Verified 10/09/20 14:10 nitroglycerin AdvReac Unknown DIZZY Verified 10/09/20 14:10 [id number]-Wce-Qvy Reductase AdvReac Unknown GI SYMPTOMS Verified 10/09/20 14:10 Inhibitor Home Medications Medication Instructions Recorded Confirmed Type multivitamin 1 tab PO DAILY 12/11/18 10/09/20 History pantoprazole 40 mg tablet,delayed 20 mg PO DAILY PRN #45 tab 07/05/20 10/09/20 Rx release diclofenac sodium 1 % topical gel 4 g TOP QID PRN gm 07/30/20 10/09/20 History aspirin [Adult Low Dose Aspirin] 81 mg PO DAILY PRN 10/09/20 10/09/20 History carvedilol 3.125 mg PO HS 10/09/20 10/09/20 History losartan 25 mg PO HS 10/09/20 10/09/20 History rosuvastatin 5 mg PO 3XWK 10/09/20 10/09/20 History acetaminophen 650 mg PO Q4H PRN #30 tab 10/11/20 Rx oxycodone 5 mg PO Q4H PRN #7 tab 10/11/20 Rx Past Med/Surg History Medical History (Updated 10/12/20 @ 00:05 by Background Daemon) Acute lower GI bleeding Anxiety Previous hx of anxiety and previously on treatment for this. Asthma (01/01/13) CVA (cerebral vascular accident) 2018- BP elevated - TIA like symptoms - resolved left sided weakness GERD (gastroesophageal reflux disease) Hyperlipidemia (01/01/13) Secondary prevention with moderate intensity statin (Atorvastatin 10 mg daily- no longer takes) Renal cyst Right knee DJD Right knee pain Vertigo Onset ~2009 after hospitalization for stress induced cardiomyopathy. Evaluated by Neuro/ENT. MRI brain w/ age related changes. Carotid US w/out significant stenosis. Treated with PT and had resolution of her symptoms Surgical History History of dental surgery S/P cardiac catheterization S/P cataract surgery Family History Family/Other Cardiac abnormality Father Myocardial infarction Obesity Mother Stroke SVT (supraventricular tachycardia) Hydrocephalus Other Heart disease Denies family history of Ovarian cancer Breast cancer Colorectal cancer Social History Smoking Status: Former smoker Second Hand Exposure: No; Hx Alcohol Use: No Hx Substance Use: No Preferred Language: Pashto Communication Ability: Effective Hearing Ability: Normal Refueling Ramp Attendant Required: No Beliefs That Will Affect Care: None marital status: / Current Living Situation: Family Current Living Situation Comment: Lives at home with son current occupational status: retired current occupation: Retired Feels Safe at Home: Yes Childhood Exposure to Second-Hand Smoke: Yes Dental Care, Regularly: Yes Physical Activity Frequency: 3-4 Times per Week Seatbelt Use: always Sunscreen Use: No Assistive Devices: None Review of Systems Review of Systems: REVIEW OF SYSTEMS: Constitutional: No fever, sweats or chills Eyes: No diplopia, no worsening or blurred vision ENT: normal hearing, no trouble swallowing Respiratory: No cough, sputum, dyspnea at rest or on exertion Cardiovascular: No chest pain, tightness or palpitations Abdomen: (+) pain, nausea, clots in toilet; (-) vomiting, diarrhea or constipation Musculoskeletal: (+) right knee pain, NO joint pain, calf pain, swelling Neurologic: No weakness, numbness/tingling, or balance problems Psychiatric: No anxiety or depression Skin: No rash or itch Physical Exam Physical Exam: PHYSICAL EXAM: General: awake, alert, no apparent distress Head: Normocephalic, atraumatic ENT: PERRL, EOMI, no pharyngeal exudate, mucous membranes moist Neuro: AAO x 3, speech clear and appropriate, strength intact bilaterally 5/5, sensation intact and equal all extremities and dermatomes, no pronator drift Chest: equal rise and fall of the chest, no accessory muscle use, no heaves or thrills, Clear to auscultation, on room air, Cardiac: Regular rate and rhythm, telemetry reviewed, skin warm dry, cap refill <3 seconds, peripheral pulses +2 no JVD, no murmur, no JVD, no edema GI: NABS x 4 quadrants, soft, nontender to palpation, no rebound, guarding or tenderness, no pain with deep palpation to bladder or lower quadrant of abdomen : Spontaneously voiding, no pain, no CVA tenderness- denies any dysuria or change in urine Extremities: Normal inspection, no peripheral edema or erythema, calfs nontender to palpation Psych: Normal mood and affect Skin: no rash or erythema Results & Data Results & Data ([facility]) Vital Signs (Past 12 Hours) Vital Signs Temp Pulse Pulse Resp BP BP Pulse Ox 10/09/20 13:03 62 16 150/84 H 95 10/09/20 12:11 55 L 18 148/72 H 96 10/09/20 10:55 58 L 20 10/09/20 10:10 56 L 20 164/71 H 96 10/09/20 09:52 36.8 C 88 18 123/76 98 Laboratory Results Abnormal lab results 10/09/20 10/09/20 10/09/20 Range/Units 11:23 11:43 11:43 RBC 3.97 L (4.2-5.4) M/uL Hct 35.7 L (37-47) % Neut # (Auto) 7.18 H (1.4-6.5) K/uL Immature Gran # (Auto) 0.03 H (0.00-0.02) K/uL Globulin 4.4 H (2.5-4.0) gm/dl Urine Protein Trace H (Negative) Urine Ketones Trace H (Negative) Ur Leukocyte Esterase Trace H (Negative) Urine WBC (Auto) 5-10 H (0-5) /hpf U Hyaline Cast (Auto) 5-10 H (0-5) /lpf U Epithel Cells (Auto) >30 H (0-5) /lpf Urine Bacteria (Auto) 1+ H (Negative) Diagnostic Findings Abdomen/Pelvis CT 10/09/20 10:05 CT SCAN OF THE ABDOMEN AND PELVIS WITHOUT IV CONTRAST CLINICAL HISTORY: Lower abdominal pain. COMPARISON STUDY: KUB dated 08/30/2009. TECHNIQUE: CT scan of the abdomen and pelvis is performed from the lung bases to the proximal femora. Images are reviewed in the axial, sagittal, and coronal planes. IV contrast was not administered for this examination. A dose lowering technique was utilized adhering to the principles of ALARA. CT DOSE: 609.81 mGy.cm FINDINGS: Lung bases: The heart is normal in size and without pericardial effusion. The coronary arteries are densely calcified. The lung bases are clear. Liver: The unenhanced liver is normal in size, contour, and attenuation. There is no intrahepatic biliary ductal dilatation. Gallbladder: Unremarkable. Spleen: Normal in size and attenuation. Pancreas: Unremarkable. Adrenal glands: Unremarkable. Kidneys: The unenhanced kidneys are normal in size and without hydronephrosis. There are no renal calculi identified. There is no evidence of contour deforming renal mass lesion. A 7 mm complex/hyperdense cyst is noted in the left kidney. Abdominal vasculature: The abdominal aorta is normal in course and caliber noting moderate atherosclerotic calcification. Bowel: There is no bowel obstruction. The appendix is well-visualized and normal. Peritoneum: There is no intraperitoneal free air or abdominal ascites. Lymphadenopathy: None. Pelvic viscera: The bladder is decompressed. Wall appears thickened and there are small foci of intraluminal gas. There are calcified uterine fibroids. No adnexal lesion is seen. Skeletal structures: The skeletal structures are osteopenic. Mild lumbosacral spondylosis is observed. A bone island is noted in the right ischium. No lytic or blastic lesions are seen. IMPRESSION: 1. Findings suggest cystitis. Correlated with clinical findings and urinalysis. 2. Fibroid uterus. 3. Additional findings as above. Electronically signed by: Turner Oakley M.D. 10/09/2020 10:38 AM Medications Administered Discontinued Medications Fentanyl Citrate (Fentanyl Citrate 100 Mcg/2 Ml Vial) 50 mcg IV Q15M PRN PRN Reason: Pain Stop: 10/23/20 11:11 Last Admin: 10/09/20 11:24 Dose: 50 mcg Documented by: [id number] Sodium Chloride (Nss) 500 mls @ 999 mls/hr IV .Q31M STA Stop: 10/09/20 10:35 Last Infusion: 10/09/20 11:55 Dose: 0 mls/hr Documented by: [id number] Admin: 10/09/20 11:24 Dose: 999 mls/hr Documented by: [id number] ECG Additional Comments: Sinus bradycardia with sinus arrhythmia Left axis deviation Minimal voltage criteria for LVH, may be normal variant Abnormal ECG When compared with ECG of 24-JUL-2018 06:16, Nonspecific T wave abnormality has replaced inverted T waves in Anterior leads Confirmed by Jose Mack ([id number]) on 10/09/2020 12:15:46 PM Code Status & VTE Plan Code Status CODE: FULL VTE: SCD's, Heparin 5000 sub q q12 Supervising Physician Co-Signing Physician Notes Attending Attestation & Admission Note: Pt seen/examined, chart reviewed, care plan d/w DAVE Martin. I agree w/ the salcedo components of his documentation. 74yo female - prior episodes of Takatsubo's x 2, prior lower GI bleeding with negative colonoscopy in 11/2019, HTN, prior CVA, GERD, HTN. On chronic asa therapy. Presenting with multiple episodes of BRBPR and mild "crampy" pain of LLQ. CT a/p at admission neg for acute findings except ?cystitis? During my bedside assessment she only c/o the mild crampy abd discomfort. BRBPR has improved. PMH, PSH, allergies, meds, sochx, famhx - reviewed VSS gen - NAD heart - RRR, s1 s2 lungs - CTA b/l abd - soft, minimal tenderness LLQ to palpation, BS+, no HSM, no peritoneal signs ext - no edema labs- Hb 12.1, now 12.9 A/P: 1. rectal bleeding - given negative CT a/p today, and prior negative colonoscopy 11/2019 -- small bowel source, especially distal?? Small bowel AVM? New pathology in colon given the neg c-scope in 2019? infectious? (c diff) other? Despite the bleeding her H/H are VERY stable. GI consult requested. Serial H/H's. Gentle IVF. 2. possible UTI - Rx w/ abx, await culture. 3. left renal cyst - would recommend f/u renal u/s as outpatient. Jose Tubbs MD PG Care Time/CCT Total # of Minutes Spent Total Time Spent with Patient: Total time spent is greater than 50% in coordination of care (as documented) at patient's floor/unit and/or counseling patient: Coding Level of Care Code 44187 Initial Inpt Care Lvl 2 Diagnoses GI bleed K92.2 GI bleed type/associated pathology: unspecified gastrointestinal hemorrhage type Cerebrovascular disease I67.9 Weakness R53.1 Fatigue R53.82 Fatigue type: chronic, unspecified Right knee DJD M17.11 Osteoarthritis type: unspecified Hypertension I10 Hypertension type: essential hypertension Stress-induced cardiomyopathy I51.81 Anxiety F41.9 Hyperlipidemia E78.5 Hyperlipidemia type: unspecified Cystitis N30.90 (1) Fatigue Fatigue type: chronic, unspecified Qualified Code(s): R53.82 - Chronic fatigue, unspecified (2) GI bleed GI bleed type/associated pathology: unspecified gastrointestinal hemorrhage type Qualified Code(s): K92.2 - Gastrointestinal hemorrhage, unspecified (3) Hyperlipidemia Hyperlipidemia type: unspecified Qualified Code(s): E78.5 - Hyperlipidemia, unspecified (4) Right knee DJD Osteoarthritis type: unspecified Qualified Code(s): M17.11 - Unilateral primary osteoarthritis, right knee (5) Hypertension Hypertension type: essential hypertension Qualified Code(s): I10 - Essential (primary) hypertension
[2020-10-09] MEDS ORDERED: POLYETHYLENE (MIRALAX) 17 GM PACK PO PRN (14:58)
[2020-10-09] MEDS ORDERED: ONDANSETRON INJ 2 MG/ML 2 ML VIAL IV PRN (14:58)
[2020-10-09] MEDS: ROSUVASTATIN CALCIUM 5 MG TAB PO SCH (17:50)
[2020-10-09 18:31] LABS: Basophils # (auto) 0.03 K/uL (0-0.2); Basophils % (auto) 0.3 %; Eosinophils # (auto) 0.04 K/uL (0-0.5); Eosinophils % (auto) 0.4 %; Hematocrit (blood only) 38.4 % (37-47); Hemoglobin 12.9 g/dL (12.0-16.0); Immature Granulocytes # (auto) 0.02 K/uL (0.00-0.02); Immature Granulocytes % (auto) 0.2 %; Lymphocytes # (auto) 3.15 K/uL (1.2-3.4); Lymphocytes % (auto) 28.6 %; Mean Corpuscular Hemoglobin 30.8 pg (25-34); Mean Corpuscular Hgb Conc 33.6 g/dL (32-36); Mean Corpuscular Volume 91.6 fL (80-100); Mean Platelet Volume 10.3 fL (7.4-10.4); Monocytes # (auto) 0.79 K/uL (0.11-0.59); Monocytes % (auto) 7.2 %; Neutrophils # (auto) 6.98 K/uL (1.4-6.5); Neutrophils % (auto) 63.3 %; Platelet Count 271 K/uL (130-400); RDW Coefficient of Variation 13.8 % (11.5-14.5); RDW Standard Deviation 45.9 fL (36.4-46.3); Red Blood Count 4.19 M/uL (4.2-5.4); White Blood Count 11.01 K/uL (4.8-10.8)
[2020-10-09] MEDS: LOSARTAN POTASSIUM 25 MG TAB PO SCH (20:35)
[2020-10-09] MEDS: PANTOprazole 40 MG in SYRINGE 0 ML IV SCH (20:35)
[2020-10-09] MEDS: carvediloL 3.125 MG TAB PO SCH (20:36)
[2020-10-09] MEDS: HEPARIN SOD 5,000 UNIT/0.5 ML VIAL SQ SCH (20:39)
[2020-10-09] MEDS: ACETAMINOPHEN 325 MG TAB PO PRN (20:42)
[2020-10-09] MEDS ORDERED: HEPARIN SOD 5,000 UNIT/0.5 ML VIAL SQ SCH (21:00)
[2020-10-10 06:56] LABS: Basophils # (auto) 0.03 K/uL (0-0.2); Basophils % (auto) 0.3 %; Eosinophils # (auto) 0.11 K/uL (0-0.5); Eosinophils % (auto) 1.3 %; Hematocrit (blood only) 34.1 % (37-47); Hemoglobin 11.6 g/dL (12.0-16.0); Immature Granulocytes # (auto) 0.01 K/uL (0.00-0.02); Immature Granulocytes % (auto) 0.1 %; Lymphocytes # (auto) 3.07 K/uL (1.2-3.4); Lymphocytes % (auto) 35.7 %; Mean Corpuscular Hemoglobin 30.9 pg (25-34); Mean Corpuscular Volume 90.7 fL (80-100); Mean Platelet Volume 10.5 fL (7.4-10.4); Monocytes # (auto) 0.62 K/uL (0.11-0.59); Monocytes % (auto) 7.2 %; Neutrophils # (auto) 4.76 K/uL (1.4-6.5); Neutrophils % (auto) 55.4 %; Platelet Count 238 K/uL (130-400); RDW Coefficient of Variation 13.9 % (11.5-14.5); RDW Standard Deviation 45.9 fL (36.4-46.3); Red Blood Count 3.76 M/uL (4.2-5.4)
[2020-10-10 07:29] LABS: BUN Creatinine Ratio 13.6 (10-20); Calcium 8.9 mg/dl (8.5-10.1); Creatinine Clr Calc Pharmacy 70.6 ml/min; Est GFR (African American) 101.5 ml/min; Est GFR (Non-African American) 87.6 ml/min; Magnesium 2.3 mg/dl (1.8-2.4); Potassium 3.7 mmol/L (3.5-5.1)
[2020-10-10] MEDS: PANTOprazole 40 MG in SYRINGE 0 ML IV SCH (08:17)
[2020-10-10] MEDS: HEPARIN SOD 5,000 UNIT/0.5 ML VIAL SQ SCH (08:18)
[2020-10-10] MEDS: levoFLOXacin 500 MG TAB PO SCH ×2 (11:33→14:14)
--- NOTE | 2020-10-10 12:57 | Gastrointestinal Consultation ---
Date of Consultation October 10, 2020 Assessment & Plan (1) Acute lower GI bleeding: Likely secondary to ischemic colitis (moderately severe abdominal cramping pain, an episode of mild faintness could have represented some hypovolemia), however no evidence of any colitis on CT scan (though completed without IV or oral contrast). Also considered are diverticular or hemorrhoidal bleeding. CT angiogram to rule out mesenteric vascular compromise. May advance diet if does not interfere with CT scan. At this point, doubt that repeat colonoscopy would provide new significant findings as she underwent colonoscopy in 2018 and 2019, also for rectal bleeding. Present on Admission?: Yes Supervising Physician Co-Signing Physician Notes I have personally seen and examined the patient with DAVE Nash on 10/10/20. Her note reflects my exam and findings. I agree with her impression and plan. We recommend CT angio to look for high grade vascular disease of mesenteri c vessels. Two recent colonoscopies without sinister pathology. Sanjay Marquez M.D. History of Present Illness Reason for Consultation: passing clots with lower abdominal pain Requesting Physician: Norbert Bird NP/[facility] Attending Physician: Becky Peoples MD History of Present Illness Ms. Sabrina Ron is a 74-year-old female patient of Dr. Mely Lerma, with a history of anxiety, asthma, GERD, Takao-Subo (2009&2018), HFpEF grade I diastolic dysfunction who presented to the ED yesterday for abdominal pain and rectal bleeding. At baseline, she does not have any abdominal issues, and denies any prior constipation or diarrhea. Thursday evening after eating supper she felt some mild abdominal discomfort and diffuse cramping. Thursday at 2 AM she was awakened by moderately severe bilateral lower abdomen cramping pain, "feels like childbirth labor," and soon past several loose bowel movements followed by 3 bowel movements consisting of only bright red blood with a few clots. During the diarrhea, she had a proximately 5-minute period of feeling faint and sweaty. She denies having had any nausea/vomiting with this. She had undergone colonoscopy in April 2018 and again in November [address] Quinn for rectal bleeding. There were no abnormal findings noted on those colonoscopies. On arrival, hemoglobin was 12.9 -> 11.6 this morning. Hemoglobin has stayed stable. Vital signs are stable without any hypotension or tachycardia. Noncontrast CT on arrival suggested cystitis, no other abnormalities. She is awake, alert, oriented currently with very mild lower abdomen tenderness and cramping, no further bowel movement since arrival. She is afebrile. She did have a mild leukocytosis with WBC 11 on arrival now normalized at 8. Allergies Allergy/AdvReac Type Severity Reaction Status Date / Time lisinopril Allergy Unknown Verified 10/09/20 14:10 morphine Allergy Unknown RASH Verified 10/09/20 14:10 Penicillins Allergy Unknown SWELLING Verified 10/09/20 14:10 nitroglycerin AdvReac Unknown DIZZY Verified 10/09/20 14:10 Stjvhjx-Boq-Mzw Reductase AdvReac Unknown GI SYMPTOMS Verified 10/09/20 14:10 Inhibitor Home Medications Medication Instructions Recorded Confirmed Type multivitamin 1 tab PO DAILY 12/11/18 10/09/20 History pantoprazole 40 mg tablet,delayed 20 mg PO DAILY PRN #45 tab 07/05/20 10/09/20 Rx release diclofenac sodium 1 % topical gel 4 g TOP QID PRN gm 07/30/20 10/09/20 History aspirin [Adult Low Dose Aspirin] 81 mg PO DAILY PRN 10/09/20 10/09/20 History carvedilol 3.125 mg PO HS 10/09/20 10/09/20 History losartan 25 mg PO HS 10/09/20 10/09/20 History rosuvastatin 5 mg PO 3XWK 10/09/20 10/09/20 History Patient History Medical History (Updated 10/10/20 @ 14:10 by Becky Peoples MD) Anxiety Previous hx of anxiety and previously on treatment for this. Asthma (01/01/13) CVA (cerebral vascular accident) 2018- BP elevated - TIA like symptoms - resolved left sided weakness GERD (gastroesophageal reflux disease) Hyperlipidemia (01/01/13) Secondary prevention with moderate intensity statin (Atorvastatin 10 mg daily- no longer takes) Renal cyst Right knee DJD Right knee pain Vertigo Onset ~2009 after hospitalization for stress induced cardiomyopathy. Evaluated by Neuro/ENT. MRI brain w/ age related changes. Carotid US w/out significant stenosis. Treated with PT and had resolution of her symptoms Surgical History History of dental surgery S/P cardiac catheterization S/P cataract surgery Family History Family/Other Cardiac abnormality Father Myocardial infarction Obesity Mother Stroke SVT (supraventricular tachycardia) Hydrocephalus Other Heart disease Denies family history of Ovarian cancer Breast cancer Colorectal cancer Social History Smoking Status: Former smoker Second Hand Exposure: No; Do You Dip or Chew Tobacco: No; Hx Alcohol Use: No Hx Substance Use: No Preferred Language: German Communication Ability: Effective Hearing Ability: Normal Death Surveys Coder Required: No Beliefs That Will Affect Care: None marital status: / Current Living Situation: Family Current Living Situation Comment: Lives at home with son current occupational status: retired current occupation: Retired Other Information That Helps Us Care for You: No Feels Safe at Home: Yes Safety Concerns: Feels Safe At This Time Childhood Exposure to Second-Hand Smoke: Yes Dental Care, Regularly: Yes Physical Activity Frequency: 3-4 Times per Week Seatbelt Use: always Sunscreen Use: No Assistive Devices: None Review of Systems Review of Systems: ROS: Gen: + Brief period of feeling faint, no syncope, otherwise denies weakness; Denies fevers, weight loss Eyes: No eye redness, or pain, no recent vision changes Resp: No SOB, no cough Cardio: No palpitations/irregular beats, no chest pain GI: See HPI, otherwise negative : Denies pain on urination Skin: No jaundice, itching or new rashes Physical Exam Constitutional: WD/WN, vitals as above Eyes: PERRL, conjunctivae normal, anicteric sclerae ENMT: external ear and nose normal, oropharynx normal Neck: trachea midline, no thyromegaly Respiratory: normal respiratory effort, lungs clear to auscultation Cardiovascular: RRR, no murmur, no edema Gastrointestinal (Abdomen): normal bowel sounds, soft, nontender, no hepatosplenomegaly Musculoskeletal: no cyanosis or clubbing, extremities motor strength 5/5 Skin: no rashes, warm and dry Neurologic: PERRL, EOMI, accommodation nl, no face palsy, no dysarthria Psychiatric: A+Ox3, euthymic affect Lymphatic: no cervical or axillary lymphadenopathy Results & Data ([facility]) Vital Signs (Past 12 Hours) Vital Signs Temp Pulse Pulse Resp BP Pulse Ox 10/10/20 11:05 36.5 C 56 L 20 146/83 H 97 10/10/20 09:24 53 L 10/10/20 07:43 36.4 C L 53 L 18 102/67 96 10/10/20 03:57 36.7 C 54 L 16 106/59 L 97 Laboratory Results WBC 8, Hb 11.6, HCT 34, PLT S2 38, NA 139, K3.7, BUN 8, creatinine 0.62, glucose 83. Diagnostic Findings Non contrast CTAP: Bowel was noted to appear normal 1. Findings suggest cystitis. Correlated with clinical findings and urinalysis. 2. Fibroid uterus. 3. Additional findings as above.
[2020-10-10] MEDS ORDERED: oxyCODONE HCL IR 5 MG TAB (IMMEDIATE RELEASE) PO PRN (14:06)
--- NOTE | 2020-10-10 14:12 | Hospitalist Progress Note ---
Date of Service October 10, 2020 Assessment & Plan (1) Acute blood loss anemia: Secondary to rectal bleeding Hemoglobin decreased from 12.9 down to 11.6. She is hemodynamically stable. Follow CBC in the morning (2) GI bleed: Abdominal pain with passage of small clots after having 24 hours of diarrhea She did recently take a course of amoxicillin and clindamycin for dental infection in the last few weeks It is possible she has an antibiotic associated diarrhea or C. difficile which caused abdominal pain, hypotension, and led to ischemic colitis? Initial CT abdomen/pelvis without contrast was unrevealing CT angiogram abdomen/pelvis performed shows no significant stenosis, but does have left-sided colitis on 10/10 Last colonoscopy was just in 2019 Appreciate GI consultation-suspect ischemic colitis and no role for colonoscopy especially as she just had a recent colonoscopy in 2019 -Check stool studies as below for infection -Supportive care -Follow CBC -Add on oxycodone for pain from cramping -With left-sided colitis-could be infectious versus ischemic We will hold off on antibiotic coverage for now as suspect ischemic colitis most likely as has mild leukocytosis which is now resolved without antibiotics and is afebrile -Okay to DC IV PPI as she does not have an upper GI bleed (3) Diarrhea: was on courses of amoxicillin and then clindamycin in last 3 weeks for dental infection then had abd cramping and diarrhea likely leading to ischemic colitis as above -check C. diff and stool culture (4) Cystitis: possible Urinary tract infection-UA is somewhat contaminated but could be consistent with infection With suprapubic pain, no dysuria CT abdomen/pelvis shows cystitis/thickened bladder -Continue levofloxacin x3-day course Follow urine culture (5) Cerebrovascular disease: Attributed to cerebral atrophy with mild cerebrovascular disease - Recently evaluated by Neurology for her gait and balance. - No acute needs- continue disease reduction medications - PT/OT (6) Weakness: As above - Has had normal B12 and TSH levels - Pt/OT - Uses cane when walking outside but not inside the house - Has been ongoing for years following her Takotsubo (7) Fatigue: As above - not anemic at this time and normocytic and normochromic (8) Right knee DJD: No acute needs (9) Hypertension: Blood pressures are controlled Continue Carvedilol and Losartan - If she shows signs of hemodynamic instability or reoccurrence of bleeding will hold as needed. (10) Stress-induced cardiomyopathy: As above no acute needs or signs of failure - EF is normalized with grade I diastolic dysfunction Continue carvedilol, losartan (11) Anxiety: No acute needs (12) Hyperlipidemia: She has intolerance to statin but appears to be doing well on very low dose rosuvastatin - Continue at 5mg PO 3x wk (13) Renal cyst: 7 mm hyperdense possibly complex cyst noted incidentally on the left kidney Discussed with patient and she will follow up with PCP and potential referral to urology as an outpatient (14) DVT prophylaxis: Hold SQ heparin for continued GI bleeding Disposition-continued stay overnight Admission and Anticipated Discharge Date Admission Date: October 09, 2020 Subjective Patient reports still some ongoing lower abdominal cramping and did have a small amount of bright red blood with clots in the toilet this morning. Overall and when she was seen again later in the day, her pain and cramping is improving. She has not had any bowel movements since admission. She reports that she was on amoxicillin and then clindamycin for 2 different courses in the last 3 weeks for dental infections. Her diarrhea was profuse and started 24 hours prior to when the rectal bleeding started. She does report that she was extremely lightheaded and likely had low blood pressure at home when the diarrhea was ongoing. She denies any chest pain or shortness of breath, no nausea. She is tolerating clear liquids. She is ambulating around the room. Telemetry with normal sinus rhythm and sinus bradycardia with rates in the 50s to 60s with a brief dropped to the 30s overnight while sleeping Review of Systems Review of Systems: All systems reviewed & are unremarkable except as noted in HPI & below Physical Exam Constitutional: WD/WN, vitals as above Eyes: + anicteric sclerae ENMT: Ears: no hearing impairment Neck: trachea midline, no thyromegaly Respiratory: normal respiratory effort, lungs clear to auscultation Cardiovascular: RRR, no murmur, no edema Chest (Breasts): Chest: normal inspection of chest Gastrointestinal (Abdomen): normal bowel sounds, soft, nontender, no hepatosplenomegaly Musculoskeletal: Extremities: extremities normal to inspection; no cyanosis and no clubbing Skin: no rashes, warm and dry Neurologic: moves all extremities and awake; no focal motor deficits Psychiatric: A+Ox3, euthymic affect Lymphatic: no lymphedema Results & Data Results & Data ([facility]) Vital Signs (Past 12 Hours) Vital Signs Temp Pulse Pulse Resp BP Pulse Ox 10/10/20 11:05 36.5 C 56 L 20 146/83 H 97 10/10/20 09:24 53 L 10/10/20 07:43 36.4 C L 53 L 18 102/67 96 10/10/20 03:57 36.7 C 54 L 16 106/59 L 97 Laboratory Results 10/10/20 10/10/20 10/09/20 Range/Units 06:30 06:30 18:23 WBC 8.60 11.01 H (4.8-10.8) K/uL RBC 3.76 L 4.19 L (4.2-5.4) M/uL Hgb 11.6 L 12.9 (12.0-16.0) g/dL Hct 34.1 L 38.4 (37-47) % MCV 90.7 91.6 (80-100) fL MCH 30.9 30.8 (25-34) pg MCHC 34.0 33.6 (32-36) g/dL RDW Std Deviation 45.9 45.9 (36.4-46.3) fL RDW Coeff of Carine 13.9 13.8 (11.5-14.5) % Plt Count 238 271 (130-400) K/uL MPV 10.5 H 10.3 (7.4-10.4) fL Immature Gran % (Auto) 0.1 0.2 % Neut % (Auto) 55.4 63.3 % Lymph % (Auto) 35.7 28.6 % Quay % (Auto) 7.2 7.2 % Eos % (Auto) 1.3 0.4 % Baso % (Auto) 0.3 0.3 % Neut # (Auto) 4.76 6.98 H (1.4-6.5) K/uL Lymph # (Auto) 3.07 3.15 (1.2-3.4) K/uL Quay # (Auto) 0.62 H 0.79 H (0.11-0.59) K/uL Eos # (Auto) 0.11 0.04 (0-0.5) K/uL Baso # (Auto) 0.03 0.03 (0-0.2) K/uL Immature Gran # (Auto) 0.01 0.02 (0.00-0.02) K/uL Sodium 139 (136-145) mmol/L Potassium 3.7 (3.5-5.1) mmol/L Chloride 107 (98-107) mmol/L Carbon Dioxide 26 (21-32) mmol/L Anion Gap 6.0 (3-11) BUN 8 D (7-18) mg/dl Creatinine 0.62 (0.6-1.2) mg/dl Est Cr Clr Drug Dosing 70.6 ml/min Est GFR ( Amer) 101.5 ml/min Est GFR (Non-Af Amer) 87.6 ml/min BUN/Creatinine Ratio 13.6 (10-20) Glucose 83 (70-99) mg/dl Calcium 8.9 (8.5-10.1) mg/dl Magnesium 2.3 (1.8-2.4) mg/dl PG Care Time/CCT Total # of Minutes Spent Total Time Spent with Patient: Total time spent is greater than 50% in coordination of care (as documented) at patient's floor/unit and/or counseling patient: Coding Level of Care Code 76858 Subseq Hosp Care Lvl 3 Diagnoses Acute blood loss anemia D62 GI bleed K92.2 GI bleed type/associated pathology: unspecified gastrointestinal hemorrhage type Diarrhea R19.7 Cystitis N30.90 Cerebrovascular disease I67.9 Weakness R53.1 Fatigue R53.82 Fatigue type: chronic, unspecified Right knee DJD M17.11 Osteoarthritis type: unspecified Hypertension I10 Hypertension type: essential hypertension Stress-induced cardiomyopathy I51.81 Anxiety F41.9 Hyperlipidemia E78.5 Hyperlipidemia type: unspecified Renal cyst N28.1 DVT prophylaxis Z29.9 (1) Fatigue Fatigue type: chronic, unspecified Qualified Code(s): R53.82 - Chronic fatigue, unspecified (2) GI bleed GI bleed type/associated pathology: unspecified gastrointestinal hemorrhage type Qualified Code(s): K92.2 - Gastrointestinal hemorrhage, unspecified (3) Hyperlipidemia Hyperlipidemia type: unspecified Qualified Code(s): E78.5 - Hyperlipidemia, unspecified (4) Right knee DJD Osteoarthritis type: unspecified Qualified Code(s): M17.11 - Unilateral primary osteoarthritis, right knee (5) Hypertension Hypertension type: essential hypertension Qualified Code(s): I10 - Essential (primary) hypertension
[2020-10-10] MEDS ORDERED: OPTIRAY 350 500ml IV ONE (16:55)
--- NOTE | 2020-10-10 19:01 | CT Scan Report ---
CT ANGIOGRAM OF THE ABDOMEN AND PELVIS CLINICAL HISTORY: Lower abdominal pain. Clinical concern for ischemic colitis. COMPARISON STUDY: Abdominal CT dated 10/09/2020. TECHNIQUE: Following the IV administration of 120 cc of Optiray 350, CT angiogram of the abdomen and pelvis was performed from the lung bases the proximal femora. Images are reviewed in the axial, sagit ana, and coronal planes. 3-D MIPS images are created and assessed. IV contrast was administered witho ut complication. A dose lowering technique was utilized adhering to the principles of ALARA. CT DOSE: 535.40 mGy.cm FINDINGS: Lower chest: The heart is normal in size and without pericardial effusion. The lung bases are clear. Liver: The contrast-enhanced liver is normal in size, contour, and attenuation. There is no intrahepa tic biliary ductal dilatation. The main portal veins appear patent. Gallbladder: Unremarkable. Spleen: Normal in size and attenuation noting heterogeneous arterial phase enhancement. Pancreas: Moderately atrophic and grossly unremarkable. Adrenal glands: Unremarkable. Kidneys: The contrast enhanced kidneys demonstrate cortical atrophy and are without hydronephrosis. T he kidneys enhance symmetrically. A subcentimeter hyperdense cyst is again seen in the interpolar lef t kidney. Abdominal aorta and iliac arteries: The abdominal aorta is normal in course and caliber noting modera te atherosclerotic calcification. The abdominal aorta is widely patent. No dissection is seen. The il iac arteries are widely patent bilaterally. Major branches of the abdominal aorta: The celiac trunk, superior mesenteric, and inferior mesenteric arteries are widely patent. Hepatic arterial anatomy is conventional. The splenic artery is patent. Single bilateral renal arteries are widely patent. Bowel: There is mild wall thickening and faint pericolonic inflammation seen involving the descending colon. This is consistent with a nonspecific colitis. No bowel obstruction is identified. The append ix is well-visualized and normal. Peritoneum: There is no intraperitoneal free air or abdominal ascites. There is a small fat-containin g umbilical hernia. Lymphadenopathy: None. Pelvic viscera: The bladder is normal as visualized. There are calcified uterine fibroids. No adnexal lesion is seen. Skeletal structures: The skeletal structures are osteopenic. Mild lumbosacral spondylosis is noted. A bone island is again seen in the right ischium. No destructive bony lesions are seen. IMPRESSION: 1. Findings are consistent with a mild nonspecific colitis of the left colon. 2. Unremarkable CT angiogram of the abdominal aorta and its major branches. 3. Fibroid uterus. 4. Additional findings as above. ACT 112: Negative or not required by law. Electronically signed by: Turner Oakley M.D. 10/10/2020 6:59 PM
[2020-10-10] MEDS: ACETAMINOPHEN 325 MG TAB PO PRN (19:53)
[2020-10-10] MEDS: LOSARTAN POTASSIUM 25 MG TAB PO SCH (20:31)
[2020-10-10] MEDS: carvediloL 3.125 MG TAB PO SCH (20:31)
[2020-10-10] MEDS ORDERED: LOSARTAN POTASSIUM 25 MG TAB PO SCH (21:00)
[2020-10-11 07:14] LABS: Basophils # (auto) 0.04 K/uL (0-0.2); Basophils % (auto) 0.5 %; Eosinophils # (auto) 0.14 K/uL (0-0.5); Eosinophils % (auto) 1.7 %; Hematocrit (blood only) 37.8 % (37-47); Hemoglobin 12.7 g/dL (12.0-16.0); Immature Granulocytes # (auto) 0.02 K/uL (0.00-0.02); Immature Granulocytes % (auto) 0.2 %; Lymphocytes # (auto) 3.25 K/uL (1.2-3.4); Lymphocytes % (auto) 39.6 %; Mean Corpuscular Hemoglobin 30.5 pg (25-34); Mean Corpuscular Hgb Conc 33.6 g/dL (32-36); Mean Corpuscular Volume 90.6 fL (80-100); Mean Platelet Volume 10.7 fL (7.4-10.4); Monocytes # (auto) 0.48 K/uL (0.11-0.59); Monocytes % (auto) 5.8 %; Neutrophils # (auto) 4.28 K/uL (1.4-6.5); Neutrophils % (auto) 52.2 %; Platelet Count 272 K/uL (130-400); RDW Coefficient of Variation 13.7 % (11.5-14.5); RDW Standard Deviation 45.8 fL (36.4-46.3); Red Blood Count 4.17 M/uL (4.2-5.4); White Blood Count 8.21 K/uL (4.8-10.8)
[2020-10-11 07:36] LABS: BUN Creatinine Ratio 10.9 (10-20); Calcium 9.1 mg/dl (8.5-10.1); Creatinine Clr Calc Pharmacy 63.4 ml/min; Est GFR (Non-African American) 84.6 ml/min; Magnesium 2.3 mg/dl (1.8-2.4); Potassium 3.6 mmol/L (3.5-5.1)
[2020-10-11] MEDS: ROSUVASTATIN CALCIUM 5 MG TAB PO SCH (08:03)
--- NOTE | 2020-10-11 10:14 | Gastroenterology Progress Note ---
Date of Service October 11, 2020 Assessment & Plan (1) Acute lower GI bleeding: Likely secondary to mild ischemic colitis. No evidence of significant occlusive vascular dx on CTA. At this point, doubt that repeat colonoscopy would provide new significant findings as she underwent colonoscopy in 2018 and 2019, also for rectal bleeding. Stool cx and C-diff were ordered by Dr. Peoples - uncollected. Will ask nursing to collect and will watch for results. Admission and Anticipated Discharge Date Admission Date: October 09, 2020 Supervising Physician Co-Signing Physician Notes I have personally seen and examined the patient with DAVE Nash. Her note reflects my exam and findings. I agree with her impression and plan. No need for repeat colonoscopy or antibiotics. Discussed with patient and son over the phone. Sanjay Marquez M.D. Subjective CTA with mild descending colon colitis; widely patent major abdominal vessels. Sitting up in bed. Able to ambulate to the w/o assistance. Taking liquids po well. Had some brief lower abd cramping in the middle of the night, otherwise no abdominal pain since yesterday. Most recent BM brown. No N/V. Afebrile. No leukocytosis since 10/09/20. Review of Systems Review of Systems: ROS: Gen: + feeling faint during episodes diarrhea (now says a longer period than 5 minutes), No faintness/lightheadedness since prior to admission, no syncope, otherwise denies weakness; Denies fevers, No weight loss Eyes: No eye redness, or pain, no recent vision changes Resp: No SOB, no cough Cardio: No palpitations/irregular beats, no chest pain GI: See HPI, otherwise negative : Denies pain on urination Skin: No jaundice, itching or new rashes Physical Exam Constitutional: WD/WN, vitals as above Eyes: PERRL, conjunctivae normal, anicteric sclerae ENMT: external ear and nose normal, oropharynx normal Neck: trachea midline, no thyromegaly Respiratory: normal respiratory effort, lungs clear to auscultation Cardiovascular: RRR, no murmur, no edema Gastrointestinal (Abdomen): normal bowel sounds, soft, nontender, no hepatosplenomegaly Musculoskeletal: no cyanosis or clubbing, extremities motor strength 5/5 Skin: no rashes, warm and dry Neurologic: PERRL, EOMI, accommodation nl, no face palsy, no dysarthria Psychiatric: A+Ox3, euthymic affect Lymphatic: no cervical or axillary lymphadenopathy Results & Data ([facility]) Vital Signs (Past 12 Hours) Vital Signs Temp Pulse Pulse Resp BP Pulse Ox 10/11/20 07:39 61 10/11/20 07:27 36.6 C 60 20 136/77 97 10/11/20 03:21 36.6 C 56 L 18 108/67 98 10/10/20 23:04 52 L 10/10/20 23:00 36.8 C 74 18 133/75 92 Laboratory Results WBC 8.2, Hb 12.7, Hct 37, Plts 272, INR 1, Na 139, K 3.6, BUN 8, Cr 0.69., glucose 83. Diagnostic Findings CTA 10/11/20: 1. Findings are consistent with a mild nonspecific colitis of the left colon. 2. Unremarkable CT angiogram of the abdominal aorta and its major branches. 3. Fibroid uterus. 4. Additional findings as above.
[2020-10-11] MEDS: levoFLOXacin 500 MG TAB PO SCH (12:02)
--- NOTE | 2020-10-11 14:32 | Discharge Summary ---
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 Patient came to the emergency room today for complaints of suprapubic pain midline, with no radiation and rated 9/10 that almost made her "pass out"; accompanied by progressively softening BMs overnight and passage of clots this morning, which she has pictures of on her iPAD. She has not passed any further stools or clots since this morning, the rectal exam in the EMD reported as gross heme. She is currently on bedpan with no blood in bed carpenter or oozing from rectum. Her pain is decreasing. She is hemodynamically normal at this point as well as stable HGB/HCT levels as well as renal and liver functions. She had a CT scan of her abdomen and pelvis without IV or oral contrast. Patient will be admitted to medical telemetry unit, started on clears for now, recheck HGB/HCT later in evening. GI consult, Bolus dosing of Protonix BID. Principal Diagnosis GI bleeding, ischemic colitis Discharge Exam Constitutional WD/WN, vitals as above Eyes + anicteric sclerae ENMT Ears: no hearing impairment Neck trachea midline, no thyromegaly Respiratory normal respiratory effort, lungs clear to auscultation Cardiovascular RRR, no murmur, no edema Chest (Breasts) Chest: normal inspection of chest Gastrointestinal (Abdomen) normal bowel sounds, soft, nontender, no hepatosplenomegaly Musculoskeletal Extremities: extremities normal to inspection; no cyanosis and no clubbing Skin no rashes, warm and dry Neurologic moves all extremities and awake; no focal motor deficits Psychiatric A+Ox3, euthymic affect Lymphatic no lymphedema Discharge Data Allergies Allergy/AdvReac Type Severity Reaction Status Date / Time lisinopril Allergy Unknown Verified 10/15/20 16:04 morphine Allergy Unknown RASH Verified 10/15/20 16:04 Penicillins Allergy Unknown SWELLING Verified 10/15/20 16:04 nitroglycerin AdvReac Unknown DIZZY Verified 10/15/20 16:04 Etvkwvh-Hts-Rnc Reductase AdvReac Unknown GI SYMPTOMS Verified 10/15/20 16:04 Inhibitor Consultations 10/09/20 12:43 ED Decision to Admit Stat 10/09/20 14:58 Consult Gastroenterology Routine Ordered Studies 10/09/20 10:05 CT abd pelvis wo con Stat 10/10/20 12:52 CT angio abdomen pelvis w con Routine Abdomen/Pelvis CT 10/09/20 10:05 CT SCAN OF THE ABDOMEN AND PELVIS WITHOUT IV CONTRAST CLINICAL HISTORY: Lower abdominal pain. COMPARISON STUDY: KUB dated 08/30/2009. TECHNIQUE: CT scan of the abdomen and pelvis is performed from the lung bases to the proximal femora. Images are reviewed in the axial, sagittal, and coronal planes. IV contrast was not administered for this examination. A dose lowering technique was utilized adhering to the principles of ALARA. CT DOSE: 609.81 mGy.cm FINDINGS: Lung bases: The heart is normal in size and without pericardial effusion. The coronary arteries are densely calcified. The lung bases are clear. Liver: The unenhanced liver is normal in size, contour, and attenuation. There is no intrahepatic biliary ductal dilatation. Gallbladder: Unremarkable. Spleen: Normal in size and attenuation. Pancreas: Unremarkable. Adrenal glands: Unremarkable. Kidneys: The unenhanced kidneys are normal in size and without hydronephrosis. There are no renal calculi identified. There is no evidence of contour deforming renal mass lesion. A 7 mm complex/hyperdense cyst is noted in the left kidney. Abdominal vasculature: The abdominal aorta is normal in course and caliber noting moderate atherosclerotic calcification. Bowel: There is no bowel obstruction. The appendix is well-visualized and normal. Peritoneum: There is no intraperitoneal free air or abdominal ascites. Lymphadenopathy: None. Pelvic viscera: The bladder is decompressed. Wall appears thickened and there are small foci of intraluminal gas. There are calcified uterine fibroids. No adnexal lesion is seen. Skeletal structures: The skeletal structures are osteopenic. Mild lumbosacral spondylosis is observed. A bone island is noted in the right ischium. No lytic or blastic lesions are seen. IMPRESSION: 1. Findings suggest cystitis. Correlated with clinical findings and urinalysis. 2. Fibroid uterus. 3. Additional findings as above. ACT 112: Negative or not required by law. Electronically signed by: Turner Oakley M.D. 10/09/2020 10:38 AM Abdomen/Pelvis CTA 10/10/20 12:52 CT ANGIOGRAM OF THE ABDOMEN AND PELVIS CLINICAL HISTORY: Lower abdominal pain. Clinical concern for ischemic colitis. COMPARISON STUDY: Abdominal CT dated 10/09/2020. TECHNIQUE: Following the IV administration of 120 cc of Optiray 350, CT angiogram of the abdomen and pelvis was performed from the lung bases the proximal femora. Images are reviewed in the axial, sagittal, and coronal planes. 3-D MIPS images are created and assessed. IV contrast was administered without complication. A dose lowering technique was utilized adhering to the principles of ALARA. CT DOSE: 535.40 mGy.cm FINDINGS: Lower chest: The heart is normal in size and without pericardial effusion. The lung bases are clear. Liver: The contrast-enhanced liver is normal in size, contour, and attenuation. There is no intrahepatic biliary ductal dilatation. The main portal veins appear patent. Gallbladder: Unremarkable. Spleen: Normal in size and attenuation noting heterogeneous arterial phase enhancement. Pancreas: Moderately atrophic and grossly unremarkable. Adrenal glands: Unremarkable. Kidneys: The contrast enhanced kidneys demonstrate cortical atrophy and are without hydronephrosis. The kidneys enhance symmetrically. A subcentimeter hyperdense cyst is again seen in the interpolar left kidney. Abdominal aorta and iliac arteries: The abdominal aorta is normal in course and caliber noting moderate atherosclerotic calcification. The abdominal aorta is widely patent. No dissection is seen. The iliac arteries are widely patent bilaterally. Major branches of the abdominal aorta: The celiac trunk, superior mesenteric, and inferior mesenteric arteries are widely patent. Hepatic arterial anatomy is conventional. The splenic artery is patent. Single bilateral renal arteries are widely patent. Bowel: There is mild wall thickening and faint pericolonic inflammation seen involving the descending colon. This is consistent with a nonspecific colitis. No bowel obstruction is identified. The appendix is well-visualized and normal. Peritoneum: There is no intraperitoneal free air or abdominal ascites. There is a small fat-containing umbilical hernia. Lymphadenopathy: None. Pelvic viscera: The bladder is normal as visualized. There are calcified uterine fibroids. No adnexal lesion is seen. Skeletal structures: The skeletal structures are osteopenic. Mild lumbosacral spondylosis is noted. A bone island is again seen in the right ischium. No destructive bony lesions are seen. IMPRESSION: 1. Findings are consistent with a mild nonspecific colitis of the left colon. 2. Unremarkable CT angiogram of the abdominal aorta and its major branches. 3. Fibroid uterus. 4. Additional findings as above. ACT 112: Negative or not required by law. Electronically signed by: Turner Oakley M.D. 10/10/2020 6:59 PM Hospital Course (1) Acute blood loss anemia: Secondary to rectal bleeding Hemoglobin decreased from 12.9 down to 11.6 and is back to 12.7 on the day of discharge. She is remained hemodynamically stable. Bleeding has stopped (2) GI bleed: Abdominal pain with passage of small clots after having 24 hours of diarrhea She did recently take a course of amoxicillin and clindamycin for dental infection in the last few weeks It is possible she has an antibiotic associated diarrhea or C. difficile which caused abdominal pain, hypotension, and led to ischemic colitis? She does not have any further passage of stool after admission which makes C. difficile colitis highly unlikely. C. difficile stool sample was not even able to be collected. Initial CT abdomen/pelvis without contrast was unrevealing CT angiogram abdomen/pelvis performed shows no significant stenosis, but does have left-sided colitis on 10/10 Last colonoscopy was just in 2019 and did not show anything overly concerning at that time Appreciate GI consultation-suspect ischemic colitis and no role for colonoscopy especially as she just had a recent colonoscopy in 2019 Stool studies for culture also not collected prior to discharge as she had no further bowel movements She was doing very well and was stable for discharge -Continue Tylenol as needed mild to moderate pain and gave small prescription for oxycodone for any worsening persist pain after discharge Patient was doing well at the time of discharge, remains afebrile and pain is much improved, no further rectal bleeding Could have been vasovagal or hypotension from dehydration and diarrhea that caused the ischemic colitis Advised low fiber diet for 1 to 2 weeks until symptoms completely resolved and then advance to high-fiber diet (3) Diarrhea: was on courses of amoxicillin and then clindamycin in last 3 weeks for dental infection then had abd cramping and diarrhea likely leading to ischemic colitis as above -As above, now resolved (4) Cystitis: possible Urinary tract infection-UA is somewhat contaminated and is not consistent with infection With suprapubic pain secondary to ischemic colitis, no dysuria CT abdomen/pelvis shows cystitis/thickened bladder Received levofloxacin x 2-day course and does not need any further antibiotics after discharge urine culture growing lactobacillus species-no need to further treat (5) Cerebrovascular disease: Attributed to cerebral atrophy with mild cerebrovascular disease - Recently evaluated by Neurology for her gait and balance. - No acute needs- continue disease reduction medications (6) Weakness: As above - Has had normal B12 and TSH levels - Uses cane when walking outside but not inside the house - Has been ongoing for years following her Takotsubo (7) Fatigue: As above - not anemic at this time and normocytic and normochromic (8) Right knee DJD: No acute needs (9) Hypertension: Blood pressures are controlled Continue Carvedilol and Losartan - If she shows signs of hemodynamic instability or reoccurrence of bleeding will hold as needed. (10) Stress-induced cardiomyopathy: As above no acute needs or signs of failure - EF is normalized with grade I diastolic dysfunction Continue carvedilol, losartan (11) Anxiety: No acute needs (12) Hyperlipidemia: She has intolerance to statin but appears to be doing well on very low dose rosuvastatin - Continue at 5mg PO 3x wk (13) Renal cyst: 7 mm hyperdense possibly complex cyst noted incidentally on the left kidney Discussed with patient and she will follow up with PCP and potential referral to urology as an outpatient (14) DVT prophylaxis: SCDs Disposition-stable for discharge to home Total Time Total Time Spent Total Time Spent (In Minutes): 35 minutes Total Time Includes: Examination of the Patient, Discharge Planning, Medication Reconciliation and Communication With Other Providers (GI ROADWAY DESIGNER) Discharge Plan Discharge Items Patient Disposition: Home - Self-Care Reason For Visit: ABDOMINAL PAIN WITH BLEEDING Discharge Diagnosis: Ischemic colitis, rectal bleeding Condition on Discharge: Good Activity: Resume your previous activity Non-emergency contact: Primary Care Provider Call non-emergency contact if: you have any medication questions, your symptoms worsen, your pain is not controlled, your pain is worsening and your temperature is above 101 Follow-up/Referrals: Claudia Flores MD [Primary Care Provider] - 10/23/20 1:30 pm (Please follow up within 1-2 weeks) Diet: Low Fiber Diet Comment: Low fiber for 1-2 weeks, then gradual return to regular diet Addtl Attending Provider Instructions: You were admitted with abdominal pain and rectal bleeding and found to have ischemic colitis. This may have been caused by transient low blood pressure. You had a CT scan of your abdomen that did NOT show any blockages in the blood vessels to the bowels. You can take tylenol as needed for pain and oxycodone as needed for moderate pain. If you develop severe pain or recurrent bleeding, feel lightheaded, or have a fever, please return to the hospital. Incidentally, you were found to have a left kidney cyst that should be followed up on by your PCP, possibly with a referral to a Urologist as an outpatient. Please follow up with your PCP within 1-2 weeks. It was a pleasure taking care of you! -Becky Peoples M.D. Pending Studies at Discharge: No Stand-Alone Forms: My [facility] Medications and DC Order Prescriptions: New acetaminophen 325 mg Tablet 650 mg PO Q4H PRN (Reason: pain) Qty: 30 RF: 0 Continued diclofenac sodium 1 % gel 4 g TOP QID PRN (Reason: Pain) RF: 0 multivitamin [Multiple Vitamins] tablet 1 tab PO DAILY RF: 0 aspirin [Adult Low Dose Aspirin] 81 mg tablet,delayed release (DR/EC) 81 mg PO DAILY PRN (Reason: Pain) RF: 0 carvedilol 3.125 mg tablet 3.125 mg PO HS RF: 0 No Action pantoprazole 40 mg tablet,delayed release (DR/EC) 20 mg PO DAILY Qty: 45 RF: 3 rosuvastatin 5 mg tablet 5 mg PO 3XWK Qty: 40 RF: 3 losartan 25 mg tablet 25 mg PO HS Qty: 90 RF: 3 Discharge Orders: Discharge Order (Routine); Ordered 10/11/20 Ordered By: Becky Peoples Admission Data Admit Date/Time: 10/09/20 13:38 Attending Provider: Becky Peoples Admit Provider: Jose Tubbs Primary Care Provider: Claudia Flores V. Other Providers: Jose Tubbs ; Jose Cruz Smith Other Interventions: Discharge Summary Assessment (RN) Last Done: 10/11/20 13:11 Coding Level of Care Code D/C Day Management >30 mins Diagnoses Acute blood loss anemia D62 GI bleed K92.2 GI bleed type/associated pathology: unspecified gastrointestinal hemorrhage type Diarrhea R19.7 Cystitis N30.90 Cerebrovascular disease I67.9 Weakness R53.1 Fatigue R53.82 Fatigue type: chronic, unspecified Right knee DJD M17.11 Osteoarthritis type: unspecified Hypertension I10 Hypertension type: essential hypertension Stress-induced cardiomyopathy I51.81 Anxiety F41.9 Hyperlipidemia E78.5 Hyperlipidemia type: unspecified Renal cyst N28.1 DVT prophylaxis Z29.9
--- NOTE | 2020-10-17 13:16 | Coding Query ---
CODING QUERY To promote full compliance with coding requirements relating to patient care, provider participation is requested in all cases of income tax preparer uncertainty. Please assist us with the question(s) below: Coding Question(s): Per documentation, patient with Cystitis/possible UTI. Patient treated with levofloxacin. Per documentation on discharge, "UA is somewhat contaminated and is not consistent with infection." Please clarify below: ( ) Patient with Cystitis/ possible UTI (x ) Cystitis/possible UTI Ruled Out ( ) Other Please Explain: Thank you Rolando Resendez Principal Diagnosis: "that condition established after study, to be chiefly responsible for occasioning the admission of the patient to the hospital for care." Co-Existing Principal Diagnosis: "when two or more diagnoses equally meet the criteria for principal diagnosis as determined by the circumstances of admission, diagnostic work up, and/or therapy provided, and the Alphabetic Index, Tabular List, or another coding guideline does not provide sequencing direction, any one of the diagnoses may be sequenced first." "When the physician has documented what appears to be a current diagnosis in the body of the record, but has not included the diagnosis in the final diagnostic statement, the physician should be asked whether the diagnosis should be added." (Source Coding Clinic 2 QTR90. p3-4) STU
== END 2020-10-11 17:33 | disposition home or self-care (01) | DRG 394 ==
LOC: ED 09:46 → 2N 13:38 → SUATTDRO 13:38 → 2N 14:26